=== PATIENT | female | born 1985 | race Caucasian/White ===

== ENCOUNTER 2020-06-06 10:10 | Outpatient (CLI) | payer MEDICARE, MEDICAID, SELFPAY ==
[2020-06-06 10:44] LABS: Basophils Absolute Auto 0.1 K/mm3 (0.0-0.1); Basophils Percent Auto 0.9 % (0.2-1.2); Eosinophils Absolute Auto 0.1 K/mm3 (0-0.3); Eosinophils Percent Auto 2.5 % (0-4.4); Hematocrit 38.5 % (37.0-47.0); Hemoglobin 13.3 g/dL (12.0-15.0); Immature Granulocyte Absolute 0.02 K/mm3 (0.00-0.031); Immature Granulocyte Percent A 0.4 % (0-0.5); Lymphocytes Absolute Auto 2.15 K/mm3 (0.9-3.2); Lymphocytes Percent Auto 37.9 % (18.3-44.2); Mean Corpuscular HGB Conc 34.5 g/dl (32-36); Mean Corpuscular Hemoglobin 31.3 pg (26-34); Mean Corpuscular Volume 90.6 fl (80-100); Mean Platelet Volume 10.1 fl (7.4-10.4); Monocytes Absolute Auto 0.7 K/mm3 (0.1-0.6); Monocytes Percent Auto 11.6 % (2.6-8.5); Neutrophils Absolute Auto 2.7 K/mm3 (1.3-6.7); Neutrophils Percent Auto 46.7 % (45.5-73.1); Platelet Count Result 263 k/mm3 (150-375); Red Blood Count 4.25 M/mm3 (4.2-5.4); Red Cell Distribution Width 11.9 % (11.5-14.5); White Blood Count 5.7 K/mm3 (4.5-10.0)
[2020-06-06 10:47] LABS: Add Urine Microscopic? YES; Appearance Urine Clear (Clear); Bacteria Urine 3+ /hpf; Bilirubin Urine Negative (Negative); Blood Urine Negative (Negative); Color Urine Yellow (Yellow); Glucose Urine UA Negative (Negative); Ketones Urine Negative (Negative); Leukocyte Esterase Ur Negative LEU/UL (NEGATIVE); Mucus Urine Rare /lpf; Nitrate Urine Negative (Negative); Protein Urine 1+ mg/dL (Negative); RBC Urine 0-2 /hpf (0-2); Specific Grav Ur 1.028 (1.001-1.035); Squamous Epithelial Cell Urine Few /hpf (Few); Urobilinogen Urine Negative mg/dL (<2.0); WBC Urine 0-3 /hpf (0-3)
[2020-06-06 11:02] LABS: Potassium 4.2 mmol/L (3.4-5.0)
[2020-06-06 11:06] LABS: Alanine Aminotransferase 19 U/L (4-35); Albumin Level 4.3 g/dL (3.5-5.1); Alkaline Phosphatase 55 U/L (38-126); Anion Gap 5 mmol/L (8-16); Aspartate Amino Transferase 23 U/L (14-36); Bilirubin,Total 0.2 mg/dL (0.2-1.3); Blood Urea Nitrogen 19 mg/dL (7-17); Calcium 9.9 mg/dL (8.4-10.2); Carbon Dioxide 31 mmol/L (22-30); Chloride 105 mmol/L (98-107); Estimated Glomerular Filt Rate > 60; Glucose 80 mg/dL (65-105); Sodium 141 mmol/L (137-145)
[2020-06-06 11:07] LABS: Complement C3 147 mg/dL (88-165); Rheumatoid Factor < 8.6 IU/ML (<12)
[2020-06-06 11:17] LABS: Erythrocyte Sedimentation Rate 27 mm/hr (0-20)
[2020-06-11 09:49] LABS: Anti Cyclic Citrullinated Pept <16 Units (<20)
[2020-06-12 05:20] LABS: CRP, High Sensitivity 1.8 mg/L (***)
[2020-06-12 12:03] LABS: Anti Nuclear Antibody Pattern Nuclear, Speckled
[2020-06-13 13:36] LABS: SM/RNP Antibody 2.4; SS-A 2.3; SS-B <1.0
== END 2020-06-06 10:11 | disposition home or self-care (01) ==
PROVIDERS: PCP Internal Medicine; Visit Provider Internal Medicine
DX: R50.9 Fever, unspecified (principal); E04.9 Nontoxic goiter, unspecified; L93.2 Other local lupus erythematosus; M32.9 Systemic lupus erythematosus, unspecified; M35.00 Sjogren syndrome, unspecified
CPT/HCPCS: 36415; 71046; 80053; 81001; 84443; 85025; 85652; 86038; 86039; 86141; 86160; 86200; 86225; 86235; 86430

== ENCOUNTER 2020-06-06 14:27 | Outpatient (CLI) | payer MEDICARE, MEDICAID, SELFPAY ==
--- NOTE | ~2020-06-06 | XR_ITS ---
EXAMINATION: XR chest 2V DATE: 06/06/2020 14:42 INDICATION: Fever TECHNIQUE: PA and lateral views of the chest were obtained. COMPARISON: Chest radiograph dated 10/21/2018 FINDINGS: The lungs remain clear with no focal airspace opacities, pulmonary edema, pleural effusion or pneumot horax. The cardiomediastinal silhouette is normal. Mild thoracic spondylosis. Amorphous calcification about the greater tuberosities at the bilateral humeral heads consistent with calcific tendinitis. IMPRESSION: 1. No acute cardiopulmonary disease. 2. Bilateral rotator cuff calcific tendinitis. Reviewed, dictated and finalized at location B. 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
== END 2020-06-06 14:28 | disposition home or self-care (01) ==
PROVIDERS: PCP Internal Medicine; Visit Provider Internal Medicine
DX: R50.9 Fever, unspecified (principal); M75.31 Calcific tendinitis of right shoulder; M75.32 Calcific tendinitis of left shoulder
CPT/HCPCS: 71046

== ENCOUNTER 2020-06-10 09:04 | Outpatient (CLI) | payer MEDICARE, MEDICAID, SELFPAY ==
--- NOTE | ~2020-06-10 | US_ITS ---
EXAMINATION: US thyroid DATE: 06/10/2020 10:20 INDICATION: Goiter. TECHNIQUE: Multiple ultrasound images of the thyroid were obtained. COMPARISON: None. FINDINGS: The right thyroid lobe measures 4.6 x 1.5 x 1.6 cm. The left thyroid lobe measures 4.6 x 1.5 x 1.8 c m. There is normal echotexture and echogenicity throughout the thyroid gland. No discrete nodules id entified. Normal vascular flow is present. IMPRESSION: 1. Normal thyroid. Reviewed, dictated and finalized at location A. RT FE[employer]ER GR[employer] IMPRESSION: 1. Normal thyroid.
[2020-06-12 23:45] LABS: NIL 0.02 IU/mL; Quantiferon TB Plus, 1T NEGATIVE (NEGATIVE); TB1-NIL 0.04 IU/mL; TB2-NIL 0.05 IU/mL
== END 2020-06-10 09:05 | disposition home or self-care (01) ==
PROVIDERS: PCP Internal Medicine; Visit Provider Internal Medicine
DX: E04.9 Nontoxic goiter, unspecified (principal); M32.9 Systemic lupus erythematosus, unspecified; M35.00 Sjogren syndrome, unspecified; R50.9 Fever, unspecified
CPT/HCPCS: 36415; 76536; 86480

== ENCOUNTER → 2020-06-13 11:13 | Outpatient (CLI) | payer MEDICARE, MEDICAID, SELFPAY ==
[2020-06-13 22:59] LABS: SARS-CoV-2 RNA PCR Negative
== END ==
PROVIDERS: PCP Internal Medicine; Visit Provider Internal Medicine
DX: R50.9 Fever, unspecified (principal); M32.9 Systemic lupus erythematosus, unspecified; Z20.822 Contact with and (suspected) exposure to COVID-19
CPT/HCPCS: C9803; U0003; U0005

== ENCOUNTER 2020-06-17 21:14 | Emergency (ER) | payer MEDICARE, MEDICAID, SELFPAY ==
[2020-06-17] VITALS (7 sets, daily range): BP systolic 133; BP diastolic 86; PULSE 77–93; RESP 15–22; TEMP 36.4; O2SAT 96–100
--- NOTE | ~2020-06-17 | XR_ITS ---
EXAMINATION: XR chest 1V portable DATE: 06/17/2020 21:59 INDICATION: 3 weeks of fever TECHNIQUE: frontal view of the chest was obtained. COMPARISON: Chest radiograph dated 06/06/2020 FINDINGS: The lungs remain clear with no focal airspace opacities, pulmonary edema, pleural effusion or pneumot horax. The cardiomediastinal silhouette is normal. Globular calcifications along the greater tuberosi ty at the left shoulder consistent with rotator cuff calcific tendinitis. IMPRESSION: 1. No acute cardiopulmonary disease. Reviewed, dictated and finalized at location A. 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
--- NOTE | 2020-06-17 21:49 | ED.FEVER ---
HPI - Fever General Chief Complaint: Fever Stated Complaint: bad Lupus flare up Time Seen by Provider: 06/17/20 21:32 Source: patient Mode of arrival: ambulatory Limitations: no limitations History of Present Illness HPI Narrative: Patient is a 35-year-old female complaining of fever on and off for the past 3 weeks. Patient states that she has seen her business intelligence architect and her primary care physician for it. Patient states that prior to arrival she checked her temperature and it was 104.7 and that is why she came to the emergency room. Patient denies taking Tylenol Motrin prior to arrival, temperature upon arrival was normal at 36.4, afebrile. Patient denies any headache, neck stiffness, chest pain, shortness of breath, cough, abdominal pain, nausea, vomiting, diarrhea or urinary symptoms. Related Data Home Medications Medication Instructions Recorded Confirmed bupropion HCl 200 mg tablet,12 hr 200 mg PO BID 05/15/19 06/06/20 sustained-release fluoxetine 20 mg capsule 40 mg PO DAILY cap 06/06/20 06/06/20 lorazepam 0.5 mg tablet 0.5 mg PO DAILY PRN 06/13/20 Allergies Allergy/AdvReac Type Severity Reaction Status Date / Time No Known Allergies Allergy Verified 06/17/20 21:28 Review of Systems Review of Systems: All systems reviewed & are unremarkable except as noted in HPI and below Constitutional: Constitutional: Denies body ache(s), Denies chills, Denies excessive sweating, Denies fatigue, Denies headache(s), Denies lethargy, Denies malaise, Denies weakness and Denies weight loss Eyes: Eyes: Denies blurry vision, Denies change in vision and Denies loss of vision ENT: Denies dizziness, Denies ear discharge, Denies headache(s), Denies lip swelling, Denies epistaxis, Denies nasal congestion, Denies neck pain, Denies throat swelling and Denies tongue swelling Cardiovascular: Cardiovascular: Denies chest pain, Denies chest pain at rest, Denies chest pain with activity, Denies diaphoresis, Denies rapid heart rate, Denies edema, Denies irregular heart rhythm, Denies lightheadedness, Denies palpitations, Denies dyspnea and Denies dyspnea on exertion Respiratory: Respiratory: Denies chest congestion, Denies cough, Denies hemoptysis, Denies dyspnea and Denies dyspnea on exertion Gastrointestinal: Gastrointestinal: Denies abdominal pain, Denies melena, Denies hematochezia, Denies diarrhea, Denies nausea, Denies vomiting and Denies hematemesis Musculoskeletal: Musculoskeletal: Denies abnormal gait, Denies deformity, Denies joint swelling, Denies limited range of motion, Denies neck pain and Denies numbness Neurologic: Denies Abnormal speech present, Denies abnormal gait, Denies confusion, Denies dizziness, Denies headache(s), Denies focal weakness, Denies loss of vision, Denies numbness, Denies Other visual disturbances, Denies Sensory deficit (Neuro) and Denies weakness Psychiatric: Psychiatric: Denies confusion, Denies depression, Denies auditory hallucinations, Denies homicidal ideation and Denies suicidal ideation Endocrine: Endocrine: Denies cold intolerance, Denies excessive sweating, Denies fatigue, Denies heat intolerance and Denies palpitations Hematologic/Lymphatic: Hematologic/Lymphatic: Denies easy bleeding and Denies easy bruising Allergic/Immunologic: Allergic/Immunologic: Denies lip swelling, Denies throat swelling and Denies tongue swelling PMFSH Past Medical History Medical History Anxiety Arthritis Close exposure to COVID-19 virus Fever of unknown origin Head ache Hypertension Irritable bowel syndrome Seasonal allergies Surgical History Surgical History H/O section Family History Family History Grandparent Carcinoma of colon, Onset Age: 55 Sibling Asthma Depression Mother Lung cancer Bone cancer Brain cancer Depres
[2020-06-17] MEDS: SODIUM CHLORIDE 0.9% IV 1,000 ML 999 ML IV CONT (22:02)
[2020-06-17 22:39] LABS: Basophils Percent Auto 0.5 % (0.2-1.2); Eosinophils Absolute Auto 0.1 K/mm3 (0-0.3); Hemoglobin 13.4 g/dL (12.0-15.0); Immature Granulocyte Absolute 0.02 K/mm3 (0.00-0.031); Immature Granulocyte Percent A 0.3 % (0-0.5); Lymphocytes Absolute Auto 2.46 K/mm3 (0.9-3.2); Lymphocytes Percent Auto 38.7 % (18.3-44.2); Mean Corpuscular HGB Conc 34.4 g/dl (32-36); Mean Corpuscular Hemoglobin 30.4 pg (26-34); Mean Corpuscular Volume 88.4 fl (80-100); Mean Platelet Volume 10.7 fl (7.4-10.4); Monocytes Absolute Auto 0.7 K/mm3 (0.1-0.6); Monocytes Percent Auto 10.4 % (2.6-8.5); Neutrophils Absolute Auto 3.1 K/mm3 (1.3-6.7); Neutrophils Percent Auto 48.1 % (45.5-73.1); Platelet Count Result 256 k/mm3 (150-375); Red Blood Count 4.41 M/mm3 (4.2-5.4); Red Cell Distribution Width 11.3 % (11.5-14.5); White Blood Count 6.4 K/mm3 (4.5-10.0)
[2020-06-17 22:50] LABS: Lactic Acid Reflex 0.7 mmol/L (0.7-2.1)
[2020-06-17 22:51] LABS: Alanine Aminotransferase 17 U/L (4-35); Albumin Level 4.4 g/dL (3.5-5.1); Alkaline Phosphatase 46 U/L (38-126); Anion Gap 7 mmol/L (8-16); Aspartate Amino Transferase 23 U/L (14-36); Bilirubin,Total 0.3 mg/dL (0.2-1.3); Blood Urea Nitrogen 17 mg/dL (7-17); Calcium 9.3 mg/dL (8.4-10.2); Carbon Dioxide 27 mmol/L (22-30); Chloride 104 mmol/L (98-107); Estimated CRCL calculation 84 ml/min; Estimated Glomerular Filt Rate > 60; Glucose 90 mg/dL (65-105); Potassium 4.4 mmol/L (3.4-5.0); Sodium 138 mmol/L (137-145)
[2020-06-17 23:42] LABS: Add Urine Microscopic? NO; Appearance Urine Clear (Clear); Bilirubin Urine Negative (Negative); Blood Urine Negative (Negative); Color Urine Yellow (Yellow); Glucose Urine UA Negative (Negative); Ketones Urine Negative (Negative); Leukocyte Esterase Ur Negative LEU/UL (Negative); Nitrate Urine Negative (Negative); Protein Urine Negative (Negative); Specific Grav Ur 1.015 (1.001-1.035); Urobilinogen Urine Negative mg/dL (<2.0)
[2020-06-18 00:09] VITALS: BP 112/70; PULSE 80; RESP 14; O2SAT 100
== END 2020-06-18 00:10 | disposition home or self-care (01) ==
PROVIDERS: Emergency Provider Emergency Medicine; PCP Internal Medicine
DX: R50.9 Fever, unspecified (principal); M19.90 Unspecified osteoarthritis, unspecified site; F41.9 Anxiety disorder, unspecified; I10 Essential (primary) hypertension; K58.9 Irritable bowel syndrome, unspecified; Z87.891 Personal history of nicotine dependence
CPT/HCPCS: 36415; 71045; 80053; 81003; 83605; 85025; 87040; 96360; 99283; J7030

== ENCOUNTER 2020-07-08 15:33 | Outpatient (CLI) | payer MEDICARE, MEDICAID, SELFPAY ==
[2020-07-08 16:16] LABS: Hematocrit 38.4 % (37.0-47.0); Hemoglobin 13.1 g/dL (12.0-15.0); Mean Corpuscular HGB Conc 34.1 g/dl (32-36); Mean Corpuscular Hemoglobin 30.8 pg (26-34); Mean Corpuscular Volume 90.4 fl (80-100); Mean Platelet Volume 10.5 fl (7.4-10.4); Platelet Count Result 250 k/mm3 (150-375); Red Blood Count 4.25 M/mm3 (4.2-5.4); Red Cell Distribution Width 11.5 % (11.5-14.5); White Blood Count 5.5 K/mm3 (4.5-10.0)
[2020-07-08 16:20] LABS: Add Urine Microscopic? YES; Appearance Urine Clear (Clear); Bacteria Urine Trace /hpf; Bilirubin Urine Negative (Negative); Blood Urine Negative (Negative); Color Urine Yellow (Yellow); Glucose Urine UA Negative (Negative); Ketones Urine Negative (Negative); Leukocyte Esterase Ur Negative LEU/UL (Negative); Mucus Urine Heavy /lpf; Nitrate Urine Negative (Negative); Protein Urine 2+ mg/dL (Negative); RBC Urine 0-2 /hpf (0-2); Specific Grav Ur 1.019 (1.001-1.035); Squamous Epithelial Cell Urine Moderate /hpf (Few); Urobilinogen Urine Negative mg/dL (<2.0); WBC Urine 0-3 /hpf
[2020-07-08 16:32] LABS: Alanine Aminotransferase 19 U/L (4-35); Albumin Level 4.4 g/dL (3.5-5.1); Alkaline Phosphatase 50 U/L (38-126); Anion Gap 6 mmol/L (8-16); Aspartate Amino Transferase 22 U/L (14-36); Bilirubin,Total 0.3 mg/dL (0.2-1.3); Blood Urea Nitrogen 13 mg/dL (7-17); CRP < 0.5 mg/dL (<1.0); Calcium 9.7 mg/dL (8.4-10.2); Carbon Dioxide 28 mmol/L (22-30); Chloride 104 mmol/L (98-107); Estimated Glomerular Filt Rate > 60; Glucose 110 mg/dL (65-105); Sodium 138 mmol/L (137-145)
[2020-07-08 16:47] LABS: Erythrocyte Sedimentation Rate 23 mm/hr (0-20)
[2020-07-08 17:53] LABS: Hepatitis C Virus Antibody Negative (Negative)
== END 2020-07-08 15:34 | disposition home or self-care (01) ==
LOC: ANHLAB 15:41
PROVIDERS: PCP Internal Medicine; Visit Provider Internal Medicine
DX: M32.9 Systemic lupus erythematosus, unspecified (principal); R50.9 Fever, unspecified; M19.90 Unspecified osteoarthritis, unspecified site
CPT/HCPCS: 36415; 80053; 81001; 85027; 85652; 86140; 86803

== ENCOUNTER 2020-09-16 12:00 | Outpatient (CLI) | payer MEDICARE, MEDICAID, SELFPAY ==
[2020-09-16 13:10] LABS: Hemoglobin A1C 5.1 % (<5.7)
[2020-09-16 13:16] LABS: Cholesterol 187 mg/dL (0-200); HDL Direct 57 mg/dL; Triglycerides 112 mg/dL (<150)
[2020-09-16 13:26] LABS: LDL Cholesterol Direct 108 mg/dL
== END 2020-09-16 12:01 | disposition home or self-care (01) ==
PROVIDERS: PCP Internal Medicine; Visit Provider Internal Medicine
DX: E78.2 Mixed hyperlipidemia (principal); R73.01 Impaired fasting glucose
CPT/HCPCS: 36415; 80061; 83036

== ENCOUNTER 2020-09-18 11:00 | Outpatient (CLI) | payer MEDICARE, MEDICAID, SELFPAY ==
[2020-09-18 12:10] LABS: Total Protein Urine Random 11 mg/dL
[2020-09-18 14:32] LABS: Total Protein Urine 24 Hr 165 mg/24hr (28-141); Total Volume 24 Hour Urine 1500 ml
== END 2020-09-18 11:01 | disposition home or self-care (01) ==
LOC: ANHLAB 11:03
PROVIDERS: PCP Internal Medicine; Visit Provider Internal Medicine
DX: R80.9 Proteinuria, unspecified (principal)
CPT/HCPCS: 81050; 84156

== ENCOUNTER 2020-10-29 13:50 | Outpatient (CLI) | payer MEDICARE, MEDICAID, SELFPAY ==
[2020-10-29 14:38] LABS: Basophils Percent Auto 0.6 % (0.2-1.2); Eosinophils Absolute Auto 0.2 K/mm3 (0-0.3); Eosinophils Percent Auto 3.1 % (0-4.4); Hematocrit 39.2 % (37.0-47.0); Hemoglobin 13.2 g/dL (12.0-15.0); Immature Granulocyte Absolute 0.03 K/mm3 (0.00-0.031); Immature Granulocyte Percent A 0.4 % (0-0.5); Lymphocytes Absolute Auto 2.58 K/mm3 (0.9-3.2); Lymphocytes Percent Auto 35.9 % (18.3-44.2); Mean Corpuscular HGB Conc 33.7 g/dl (32-36); Mean Corpuscular Hemoglobin 30.5 pg (26-34); Mean Corpuscular Volume 90.5 fl (80-100); Monocytes Absolute Auto 0.6 K/mm3 (0.1-0.6); Monocytes Percent Auto 8.8 % (2.6-8.5); Neutrophils Absolute Auto 3.7 K/mm3 (1.3-6.7); Neutrophils Percent Auto 51.2 % (45.5-73.1); Platelet Count Result 313 k/mm3 (150-375); Red Blood Count 4.33 M/mm3 (4.2-5.4); Red Cell Distribution Width 11.6 % (11.5-14.5); White Blood Count 7.2 K/mm3 (4.5-10.0)
[2020-10-29 14:46] LABS: Add Urine Microscopic? YES; Appearance Urine Clear (Clear); Bacteria Urine Trace /hpf; Bilirubin Urine Negative (Negative); Blood Urine 1+ (Negative); Color Urine Yellow (Yellow); Glucose Urine UA Negative (Negative); Ketones Urine Negative (Negative); Leukocyte Esterase Ur Negative LEU/UL (Negative); Mucus Urine Rare /lpf; Nitrate Urine Negative (Negative); Protein Urine 1+ mg/dL (Negative); RBC Urine 0-2 /hpf (0-2); Specific Grav Ur 1.015 (1.001-1.035); Squamous Epithelial Cell Urine Occasional /hpf (Few); Urobilinogen Urine Negative mg/dL (<2.0); WBC Urine 0-3 /hpf
[2020-10-29 14:49] LABS: Creatinine Urine 135.9 mg/dL; Total Protein Urine Random 12 mg/dL; Ur Ttl Prot Creatinine Ratio 0.09 mg/mg (0-0.20)
[2020-10-29 14:50] LABS: Alanine Aminotransferase 17 U/L (4-35); Albumin Level 4.5 g/dL (3.5-5.1); Alkaline Phosphatase 51 U/L (38-126); Anion Gap 7 mmol/L (8-16); Aspartate Amino Transferase 25 U/L (14-36); Bilirubin,Total 0.1 mg/dL (0.2-1.3); Blood Urea Nitrogen 10 mg/dL (7-17); CRP 0.6 mg/dL (<1.0); Calcium 9.8 mg/dL (8.4-10.2); Carbon Dioxide 27 mmol/L (22-30); Chloride 105 mmol/L (98-107); Estimated Glomerular Filt Rate > 60; Glucose 77 mg/dL (65-105); Potassium 4.5 mmol/L (3.4-5.0); Sodium 139 mmol/L (137-145)
[2020-10-29 15:25] LABS: Erythrocyte Sedimentation Rate 32 mm/hr (0-20)
[2020-10-29 15:48] LABS: Atypical Lymphocytes Present; Platelet Estimate Adequate (Adequate)
== END 2020-10-29 13:51 | disposition home or self-care (01) ==
LOC: ANHLAB 14:00
PROVIDERS: PCP Internal Medicine; Visit Provider Internal Medicine
DX: M32.9 Systemic lupus erythematosus, unspecified (principal); M19.90 Unspecified osteoarthritis, unspecified site
CPT/HCPCS: 36415; 80053; 81001; 82570; 84156; 85025; 85652; 86140

== ENCOUNTER 2020-12-11 17:02 | Emergency (ER) | payer MEDICARE, MEDICAID, SELFPAY ==
[2020-12-11 17:11] VITALS: BP 126/80; PULSE 68; RESP 18; TEMP 36.6; O2SAT 98
--- NOTE | 2020-12-11 18:10 | ED.SKABFB ---
HPI - Skin/Abscess/Foreign Bdy General Chief complaint: Skin/Abscess/Foreign Body Stated complaint: Bee bite to Finger on left Hand Source: patient and RN notes reviewed Limitations: no limitations History of Present Illness HPI narrative: The patient, on several meds for SLE, presents with insect bite. Patient states prior to arrival she sustained a witnessed wasp sting on her left ring finger. She complains of mild discomfort and edema from a small puncta; symptoms are mild, worse with motion better at rest or elevation and ice . Related Data Home Medications Medication Instructions Recorded Confirmed fluoxetine 20 mg capsule 20 mg PO DAILY cap 06/06/20 12/11/20 lorazepam 0.5 mg tablet 0.5 mg PO DAILY PRN 06/13/20 12/11/20 metoprolol tartrate 25 mg PO DAILY 12/11/20 12/11/20 Allergies Allergy/AdvReac Type Severity Reaction Status Date / Time No Known Allergies Allergy Verified 12/11/20 17:22 Review of Systems Review of Systems: General/Constitutional: No weight loss,fever Eyes: N0: Redness,discharge Ears/Nose/Throat: No: Epistaxis,ear discharge Respiratory: Denies: Hemoptysis Gastrointestinal: No Vomiting, Bleeding-rectal Skin: No Lumps, eruption Neurologic: No Focal Weakness,Sz Hematologic: Denies: Petechiae/Purpura Psychiatric: No: Suicida ideationl All Other Systems: Reviewed and Negative [facility] Past Medical History Medical History (Updated 12/11/20 @ 18:13 by Alberto Garcia MD) Abnormality of heart beat Anxiety Anxiety about health Arthritis Bilateral shoulder pain Calcific tendinitis of both shoulder regions Calcific tendonitis Close exposure to COVID-19 virus 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 DJD of right shoulder Enlarged thyroid gland Essential hypertension Ex-smoker General symptom Head ache Hearing loss Heart palpitations Hypertension Hypochondriasis Hypothyroid IFG (impaired fasting glucose) Irritable bowel syndrome Irritable bowel syndrome with constipation Leukoplakia Lung nodule < 6cm on CT (02/2020) Lupus Narcolepsy Narcolepsy and cataplexy Nausea and vomiting Obesity (BMI 30.0-34.9) Proteinuria Seasonal allergies Sjogren's disease Vaccine counseling Vitamin D toxicity Weight gain Surgical History Surgical History H/O section History of colposcopy Family History Family History Grandparent Carcinoma of colon, Onset Age: 55 Sibling Asthma Depression Mother Lung cancer Bone cancer Brain cancer Depression Cerebrovascular accident Thyroid disorder Father Heart disease Social History Social History Smoking packs per day: 0.5 Smoking cigarettes per day: 10.0 Years smoked: 22 Smoking pack-years: 11.00 Smoking end date: 05/09/17 Alcohol intake: never Comments At time of signature, agree with nursing past medical, surgical, social and family history. There is no relevant family history pertinent to the presenting complaint Exam Narrative: General Appearance: Overweight/ well nourished, No distress EYE: PERRLA, EOMI, Conjunctiva clear Ears: External ear normal, Auditory canal normal Nose: Normal nose, Nares clear Mouth/Throat: Normal appearing, Normal lips Neck: Supple Respiratory: Airway patent, No respiratory distress MS-finger: Normal strength (mostly intact, limited flexion/extension by pain), Tenderness ( laterally, with mild decreased ROM), Scant welling (laterally), Other (no anterior drawer, no collateral laxity, Skin: Warm, Dry, Normal color Neurological: A&O x3, Speech clear, CN II-XII intact Psychiatric: Normal mood, Normal affect Course Vital Signs Vital signs: Vital Signs Temperature 97.8 F 12/11/20 17:11 Pulse Rate 68 12/11/20 17:11 Respiratory Rate 18 12/11/20 17:11 Blood Pressure 126/80 12/11/20 17:11 Pulse O
== END 2020-12-11 18:20 | disposition home or self-care (01) ==
PROVIDERS: Emergency Provider Emergency Medicine; PCP Internal Medicine
DX: T63.461A Toxic effect of venom of wasps, accidental (unintentional), initial encounter (principal); F17.200 Nicotine dependence, unspecified, uncomplicated; F41.9 Anxiety disorder, unspecified; M19.90 Unspecified osteoarthritis, unspecified site; M19.012 Primary osteoarthritis, left shoulder; M19.011 Primary osteoarthritis, right shoulder; I10 Essential (primary) hypertension; E03.9 Hypothyroidism, unspecified; E66.9 Obesity, unspecified; Z68.33 Body mass index [BMI] 33.0-33.9, adult; G47.411 Narcolepsy with cataplexy; M35.00 Sjogren syndrome, unspecified
CPT/HCPCS: 99213; G0463

== ENCOUNTER 2021-02-11 15:38 | Outpatient (CLI) | payer MEDICARE, MEDICAID, SELFPAY ==
[2021-02-11 16:08] LABS: Basophils Absolute Auto 0.1 K/mm3 (0.0-0.1); Basophils Percent Auto 0.7 % (0.2-1.2); Eosinophils Absolute Auto 0.2 K/mm3 (0-0.3); Eosinophils Percent Auto 1.9 % (0-4.4); Immature Granulocyte Absolute 0.05 K/mm3 (0.00-0.031); Immature Granulocyte Percent A 0.6 % (0-0.5); Lymphocytes Percent Auto 27.3 % (18.3-44.2); Mean Corpuscular HGB Conc 34.1 g/dl (32-36); Mean Corpuscular Volume 90.9 fl (80-100); Mean Platelet Volume 10.1 fl (7.4-10.4); Monocytes Absolute Auto 0.6 K/mm3 (0.1-0.6); Monocytes Percent Auto 7.6 % (2.6-8.5); Neutrophils Percent Auto 61.9 % (45.5-73.1); Platelet Count Result 297 k/mm3 (150-375); Red Blood Count 4.51 M/mm3 (4.2-5.4); White Blood Count 8.1 K/mm3 (4.5-10.0)
[2021-02-11 16:48] LABS: Add Urine Microscopic? YES; Appearance Urine Clear (Clear); Bacteria Urine Trace /hpf; Bilirubin Urine Negative (Negative); Blood Urine Negative (Negative); Color Urine Amber (Yellow); Glucose Urine UA Negative (Negative); Ketones Urine Negative (Negative); Leukocyte Esterase Ur Negative LEU/UL (Negative); Mucus Urine Heavy /lpf; Nitrate Urine Negative (Negative); Protein Urine 2+ mg/dL (Negative); RBC Urine 21-50 /hpf (0-2); Specific Grav Ur 1.026 (1.001-1.035); Squamous Epithelial Cell Urine Moderate /hpf (Few); Urobilinogen Urine Negative mg/dL (<2.0)
[2021-02-11 16:49] LABS: Erythrocyte Sedimentation Rate 58 mm/hr (0-20)
[2021-02-11 17:36] LABS: Alanine Aminotransferase 22 U/L (4-35); Albumin Level 4.8 g/dL (3.5-5.1); Alkaline Phosphatase 52 U/L (38-126); Anion Gap 9 mmol/L (8-16); Aspartate Amino Transferase 25 U/L (14-36); Bilirubin,Total 0.3 mg/dL (0.2-1.3); Blood Urea Nitrogen 12 mg/dL (7-17); CRP < 0.5 mg/dL (<1.0); Calcium 9.7 mg/dL (8.4-10.2); Carbon Dioxide 28 mmol/L (22-30); Chloride 102 mmol/L (98-107); Estimated Glomerular Filt Rate > 60; Glucose 132 mg/dL (65-110); Sodium 139 mmol/L (137-145)
[2021-02-14 06:20] LABS: Thyroid Peroxidase Antibodies <1 IU/mL (<9)
== END 2021-02-11 15:39 | disposition home or self-care (01) ==
PROVIDERS: PCP Internal Medicine; Visit Provider Internal Medicine
DX: M32.9 Systemic lupus erythematosus, unspecified (principal); M19.90 Unspecified osteoarthritis, unspecified site; E03.9 Hypothyroidism, unspecified
CPT/HCPCS: 36415; 80053; 81001; 85025; 85652; 86140; 86376; 87086

== ENCOUNTER 2021-02-18 09:26 | Outpatient (CLI) | payer MEDICARE, MEDICAID, SELFPAY ==
--- NOTE | ~2021-02-18 | CT_ITS ---
EXAMINATION:CT diagnostic chest w con DATE: 02/18/2021 10:40 INDICATION: Solitary pulmonary nodule. TECHNIQUE: Computed tomography (CT) of the chest was performed with 75 mL Omnipaque 350 intravenous c ontrast. Automated exposure control and iterative reconstruction technique were employed. The dose-le ngth product (DLP) was 233.81 mGy-cm. COMPARISON: None. FINDINGS: There is mild dependent atelectasis on the right. No pleural effusion. The heart size is no rmal. No pericardial effusion. There is mild thoracic spondylosis. IMPRESSION: 1. No abnormal pulmonary nodule. Reviewed, dictated and finalized at location A.
== END 2021-02-18 09:27 | disposition home or self-care (01) ==
LOC: ANHIMG 09:27
PROVIDERS: PCP Internal Medicine; Visit Provider Internal Medicine Pulmonary Disease
DX: M25.462 Effusion, left knee (principal)
CPT/HCPCS: 71260; Q9967

== ENCOUNTER 2021-07-04 07:48 | Outpatient (CLI) | payer MEDICARE, MEDICAID, SELFPAY ==
--- NOTE | ~2021-07-04 | MR_ITS ---
EXAMINATION: MR shoulder LT wo con DATE: 07/04/2021 08:34 INDICATION: Left shoulder pain. TECHNIQUE: Magnetic resonance imaging (MRI) of the left shoulder was performed without intravenous co ntrast. Sequences included axial PD-weighted FS FSE, coronal oblique PD-weighted FS FSE and T2-weight ed FS FSE, and sagittal oblique T2-weighted FS FSE and T1-weighted FSE. COMPARISON: Left shoulder radiographs 11/17/2020 FINDINGS: Coracoacromial arch: The acromion undersurface is curved in morphology (type II). There is mild subacromial/subdeltoid bur sitis. There is mild acromioclavicular joint osteoarthritis. Rotator cuff: There is mild supraspinatus and infraspinatus tendinopathy. There are calcifications involving the jeter praspinatus and infraspinatus tendons. Teres minor tendon is normal. Subscapularis tendon is normal. There is no asymmetric fatty atrophy of the rotator cuff muscle bellies. Biceps tendon and glenoid labrum: Biceps tendon is in bicipital groove. Intra-articular biceps tendon is normal. The glenoid labrum is normal. Fluid: There is a small glenohumeral joint effusion. Bones/cartilage: Glenoid cartilage is normal. Humeral head cartilage is normal. IMPRESSION: 1. Mild rotator cuff tendinopathy. Calcific tendinitis of supraspinatus and infraspinatus tendons. 2. Mild acromioclavicular joint osteoarthritis. 3. Small glenohumeral joint effusion. 4. Mild subacromial/subdeltoid bursitis. Reviewed, dictated and finalized at location A. 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 Mild rotator cuff tendinopathy. Calcific tendinitis of supraspinatus and inf raspinatus tendons. 2. Mild acromioclavicular joint osteoarthritis. 3. Small glenohumeral joint effusion. 4. Mild subacromial/subdeltoid bursitis.
== END 2021-07-04 07:49 | disposition home or self-care (01) ==
LOC: ANHIMG 07:50
PROVIDERS: PCP Internal Medicine; Visit Provider Nurse Practitioner Family
DX: M19.012 Primary osteoarthritis, left shoulder (principal); M25.412 Effusion, left shoulder; M75.52 Bursitis of left shoulder
CPT/HCPCS: 73221

== ENCOUNTER 2022-08-04 10:03 | Emergency (ER) | payer MEDICARE, MEDICAID, SELFPAY ==
[2022-08-04 10:11] VITALS: BP 118/75; PULSE 71; RESP 18; TEMP 36.3; O2SAT 99
--- NOTE | 2022-08-04 10:40 | ED.EAR ---
HPI - Ear Problem General Chief complaint: Ear Stated complaint: Ear Pain Time Seen by Provider: 08/04/22 10:41 Source: patient, RN notes reviewed and old records reviewed Mode of arrival: ambulatory Limitations: no limitations History of Present Illness HPI Narrative: 37-year-old female who presents to [facility] with complaints of bilateral ear pain with left ear pain for 3 weeks, right ear pain since yesterday. Patient reports that she has had sore throat for about a week has history of tonsil stones but has noted a pimply lesion on area next to right tonsil, no lymphadenopathy.Patient has taken Ibuprofen and Tylenol and ear pain drops MD Complaint: ear pain and other (sore throat) Location: bilateral Duration: constant Discharge from ear: Reports no Treatment prior to arrival: oral analgesic and other (pain ear drops) Related Data Home Medications Medication Instructions Recorded Confirmed fluoxetine 40 mg capsule 40 mg PO DAILY 09/22/21 08/04/22 metoprolol tartrate 25 mg tablet 25 mg PO BID 09/22/21 08/04/22 lorazepam 0.5 mg tablet 0.5 mg PO DAILY PRN Anxiety 08/04/22 08/04/22 Allergies Allergy/AdvReac Type Severity Reaction Status Date / Time No Known Allergies Allergy Verified 08/04/22 10:29 Review of Systems Review of Systems: CONSTITUTIONAL: Denies known fever,has felt feverish, chills, or sweats. EYES: Denies visual changes, redness, or discharge. ENT: Denies rhinorrhea, congestion,positive sore throat,bilateral ear pressure otalgia. CARDIOVASCULAR: Denies chest pain, palpitations, or edema. RESPIRATORY: Denies cough or dyspnea. GASTROINTESTINAL: Denies abdominal pain, nausea, vomiting, or diarrhea. GENITOURINARY: Denies dysuria or hematuria. SKIN: Denies rash or itching. MUSCULOSKELETAL: Denies back pain, joint pain, or myalgia. NEUROLOGIC: Denies headache, numbness, or weakness. PSYCHIATRIC: positive for history of anxiety or depression. 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 DJD of right shoulder Enlarged thyroid gland Essential hypertension Ex-smoker General symptom Head ache Hearing loss Heart palpitations Hypertension Hypochondriasis Hypothyroid IFG (impaired fasting glucose) Irritable bowel syndrome Irritable bowel syndrome with constipation Left shoulder pain Leukoplakia Lung nodule < 6cm on CT (02/2020) Lupus Narcolepsy Narcolepsy and cataplexy Nausea and vomiting Obesity (BMI 30.0-34.9) Proteinuria Seasonal allergies Sjogren's disease Vaccine counseling Vitamin D toxicity Weight gain Surgical History Surgical History H/O section History of colposcopy Family History Family History Grandparent Carcinoma of colon, Onset Age: 55 Sibling Asthma Depression Mother Lung cancer Bone cancer Brain cancer Depression Cerebrovascular accident Thyroid disorder Father Heart disease Social History Social History Smoking packs per day: 0.5 Smoking cigarettes per day: 10.0 Years smoked: 22 Smoking pack-years: 11.00 Smoking status: Former smoker Tobacco type: cigarettes Second hand tobacco smoke exposure: No Smoking end date: 05/09/17 Alcohol intake: former Substance use: never Substance use type: does not use Lack of Transportation: No Lack of Food: Never True Current Housing: I Have Housing Concerned About Future Housing: No Difficulty Paying Gas/Electric Bills: No Difficulty Paying for Meds: N
== END 2022-08-04 11:10 | disposition home or self-care (01) ==
PROVIDERS: Emergency Provider Registered Nurse
DX: J06.9 Acute upper respiratory infection, unspecified (principal); J02.9 Acute pharyngitis, unspecified; Z87.891 Personal history of nicotine dependence; F41.9 Anxiety disorder, unspecified; I10 Essential (primary) hypertension; E03.9 Hypothyroidism, unspecified; R73.01 Impaired fasting glucose; L93.0 Discoid lupus erythematosus; M19.012 Primary osteoarthritis, left shoulder; M19.011 Primary osteoarthritis, right shoulder
CPT/HCPCS: 87081; 87880; 99213; G0463

== ENCOUNTER 2023-02-08 10:21 | Outpatient (CLI) | payer MEDICARE, MEDICAID, SELFPAY ==
[2023-02-08 11:22] LABS: Basophils Percent Auto 0.6 % (0.2-1.2); Eosinophils Absolute Auto 0.4 K/mm3 (0-0.3); Eosinophils Percent Auto 5.7 % (0-4.4); Hematocrit 39.4 % (37.0-47.0); Hemoglobin 13.1 g/dL (12.0-15.0); Immature Granulocyte Absolute 0.04 K/mm3 (0.00-0.031); Immature Granulocyte Percent A 0.6 % (0-0.5); Lymphocytes Absolute Auto 2.44 K/mm3 (0.9-3.2); Lymphocytes Percent Auto 33.7 % (18.3-44.2); Mean Corpuscular HGB Conc 33.2 g/dl (32-36); Mean Corpuscular Hemoglobin 30.3 pg (26-34); Mean Corpuscular Volume 91.2 fl (80-100); Mean Platelet Volume 10.1 fl (7.4-10.4); Monocytes Absolute Auto 0.6 K/mm3 (0.1-0.6); Monocytes Percent Auto 8.6 % (2.6-8.5); Neutrophils Absolute Auto 3.7 K/mm3 (1.3-6.7); Neutrophils Percent Auto 50.8 % (45.5-73.1); Platelet Count Result 320 k/mm3 (150-375); Red Blood Count 4.32 M/mm3 (4.2-5.4); Red Cell Distribution Width 11.9 % (11.5-14.5); White Blood Count 7.2 K/mm3 (4.5-10.0)
[2023-02-08 11:29] LABS: Alanine Aminotransferase 32 U/L (6-35); Albumin Level 4.4 g/dL (3.5-5.1); Alkaline Phosphatase 66 U/L (38-126); Anion Gap 7 mmol/L (8-16); Aspartate Amino Transferase 34 U/L (14-36); Bilirubin,Total 0.3 mg/dL (0.2-1.3); Blood Urea Nitrogen 11 mg/dL (7-17); Calcium 9.1 mg/dL (8.4-10.2); Carbon Dioxide 28 mmol/L (22-30); Chloride 103 mmol/L (98-107); Cholesterol 213 mg/dL (0-200); Estimated Glomerular Filt Rate > 60; Glucose 85 mg/dL (65-110); HDL Direct 43 mg/dL; Potassium 4.1 mmol/L (3.4-5.0); Sodium 138 mmol/L (137-145); Triglycerides 194 mg/dL (<150)
[2023-02-08 11:40] LABS: LDL Cholesterol Direct 133 mg/dL
[2023-02-08 12:11] LABS: Hemoglobin A1C 5.2 % (<5.7)
[2023-02-08 12:26] LABS: Vitamin D 25 Hydroxy 34.1 ng/mL
[2023-02-08 12:36] LABS: Folic Acid 16.9 ng/mL (2.76->20)
[2023-02-10 09:24] LABS: Amphetamines NEGATIVE ng/mL (<500); Barbiturates NEGATIVE ng/mL (<300); Benzodiazepines POSITIVE ng/mL (<100); Cocaine Metabolite NEGATIVE ng/mL (<150); Marijuana Metabolite NEGATIVE ng/mL (<20); Methadone Metabolite NEGATIVE ng/mL (<100); Opiates NEGATIVE ng/mL (<100); Oxidant NEGATIVE mcg/mL (<200); pH 5.3 (4.5-9.0)
== END 2023-02-08 10:22 | disposition home or self-care (01) ==
PROVIDERS: PCP Nurse Practitioner Family; Visit Provider Nurse Practitioner Family
DX: R73.01 Impaired fasting glucose (principal); Z68.36 Body mass index [BMI] 36.0-36.9, adult; I10 Essential (primary) hypertension; M32.9 Systemic lupus erythematosus, unspecified; Z13.0 Encounter for screening for diseases of the blood and blood-forming organs and certain disorders involving the immune mechanism; Z13.21 Encounter for screening for nutritional disorder; R53.83 Other fatigue; Z13.29 Encounter for screening for other suspected endocrine disorder
CPT/HCPCS: 36415; 80053; 80061; 80307; 82306; 82607; 82746; 83036; 84443; 85025

== ENCOUNTER 2023-09-23 18:18 | Emergency (ER) | payer MEDICARE, MEDICAID, SELFPAY ==
--- NOTE | 2023-09-23 18:20 | ED.URI ---
HPI - URI/Sore Throat General Chief Complaint: Upper Respiratory Infection Stated Complaint: Ear Pain/Sore Throat/Cough/Fever Time Seen by Provider: 09/23/23 18:40 Source: patient, RN notes reviewed and old records reviewed Mode of arrival: ambulatory Limitations: no limitations History of Present Illness HPI Narrative: 38-year-old female presents to the [facility] with complaints of ear pain, sore throat, cough and low-grade fevers. Patient states that symptoms have been intermittent for the last 2-3 weeks however 4 days ago symptoms became much worse. States that she does take Coricidin for her symptoms but is not helping. Related Data Home Medications Medication Instructions Recorded Confirmed metoprolol tartrate 25 mg tablet 25 mg PO BID 09/22/21 09/23/23 lorazepam 0.5 mg tablet 0.5 mg PO DAILY PRN Anxiety 08/04/22 09/23/23 fluoxetine 20 mg capsule 20 mg PO DAILY 08/19/23 09/23/23 Allergies Allergy/AdvReac Type Severity Reaction Status Date / Time No Known Allergies Allergy Verified 08/19/23 14:01 Review of Systems Review of Systems: All systems reviewed & are unremarkable except as noted in HPI and below Constitutional: Constitutional: Reports no additional constitutional complaints Eyes: Eyes: Reports no additional eye complaints ENT: Reports as per HPI Cardiovascular: Cardiovascular: Reports no additional cardiovascular complaints, Denies chest pain and Denies dyspnea Respiratory: Respiratory: Reports no additional respiratory complaints, Denies chest congestion, Denies cough and Denies dyspnea Gastrointestinal: Gastrointestinal: Reports no additional gastrointestinal complaints, Denies abdominal pain, Denies nausea and Denies vomiting Musculoskeletal: Musculoskeletal: Reports no additional musculoskeletal complaints Integumentary/Breasts: Skin/Breast: Reports system reviewed and no additional complaints, except as docu Neurologic: Reports system reviewed and no additional complaints, except as documented Psychiatric: Psychiatric: Reports no additional psychiatric complaints Allergic/Immunologic: Allergic/Immunologic: Reports no additional allergic/immunologic complaints PMFSH Past Medical History Medical History Abnormality of heart beat Anxiety Anxiety about health Arthritis Bilateral shoulder pain Calcific tendinitis of both shoulder regions Calcific tendonitis Close exposure to COVID-19 virus 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 DJD of right shoulder Enlarged thyroid gland Essential hypertension Ex-smoker General symptom Head ache Hearing loss Heart palpitations Hypertension Hypochondriasis Hypothyroid IFG (impaired fasting glucose) Irritable bowel syndrome Irritable bowel syndrome with constipation Left shoulder pain Leukoplakia Lung nodule < 6cm on CT (02/2020) Lupus Narcolepsy Narcolepsy and cataplexy Nausea and vomiting Obesity (BMI 30.0-34.9) Proteinuria Seasonal allergies Sjogren's disease Vaccine counseling Vitamin D toxicity Weight gain Surgical History Surgical History H/O section History of colposcopy Family History Family History Grandparent Carcinoma of colon, Onset Age: 55 Sibling Asthma Depression Mother Lung cancer Bone cancer Brain cancer Depression Cerebrovascular accident Thyroid disorder Father Heart disease Social History Social History Smoking packs per day: 0.5 Smoking cigarettes per day: 10.0 Years smoked: 22 Smoking pack-years: 11.00 Smoking status: Former smoker Tobacco type: cigarettes Second hand tobacco smoke exposure: No Smoking end date: 05/09/19 Alcohol intake: former Substance use: never Substance use type: does not use Lack of Transportation: No [place]
[2023-09-23 18:25] VITALS: BP 140/84; PULSE 90; RESP 18; TEMP 36.3; O2SAT 97
== END 2023-09-23 19:02 | disposition home or self-care (01) ==
PROVIDERS: Emergency Provider Nurse Practitioner
DX: J32.9 Chronic sinusitis, unspecified (principal); R09.82 Postnasal drip; R41.9 Unspecified symptoms and signs involving cognitive functions and awareness; M19.012 Primary osteoarthritis, left shoulder; M19.011 Primary osteoarthritis, right shoulder; I10 Essential (primary) hypertension; E03.9 Hypothyroidism, unspecified; R73.01 Impaired fasting glucose; E66.9 Obesity, unspecified; Z68.36 Body mass index [BMI] 36.0-36.9, adult; M35.00 Sjogren syndrome, unspecified; Z87.891 Personal history of nicotine dependence
CPT/HCPCS: 99213; G0463

== ENCOUNTER 2023-12-27 16:04 | Outpatient (CLI) | payer MEDICARE, MEDICAID, SELFPAY ==
[2023-12-27 17:23] LABS: Hematocrit 42.4 % (37.0-47.0); Hemoglobin 14.6 g/dL (12.0-15.0); Mean Corpuscular HGB Conc 34.4 g/dl (32-36); Mean Corpuscular Hemoglobin 30.6 pg (26-34); Mean Corpuscular Volume 88.9 fl (80-100); Mean Platelet Volume 10.5 fl (7.4-10.4); Platelet Count Result 336 k/mm3 (150-375); Red Blood Count 4.77 M/mm3 (4.2-5.4); Red Cell Distribution Width 12.3 % (11.5-14.5); White Blood Count 7.6 K/mm3 (4.5-10.0)
[2023-12-27 17:25] LABS: Add Urine Microscopic? NO; Appearance Urine Clear (Clear); Bilirubin Urine Negative (Negative); Blood Urine Negative (Negative); Color Urine Yellow (Yellow); Glucose Urine UA Negative (Negative); Ketones Urine Negative (Negative); Leukocyte Esterase Ur Negative LEU/UL (Negative); Nitrate Urine Negative (Negative); Protein Urine Negative (Negative); Specific Grav Ur 1.019 (1.001-1.035); Urobilinogen Urine 0.2 mg/dL (<2.0); pH Urine 5.5 (5.0-9.0)
[2023-12-27 17:33] LABS: Alanine Aminotransferase 28 U/L (6-35); Albumin Level 4.7 g/dL (3.5-5.1); Alkaline Phosphatase 63 U/L (38-126); Anion Gap 12 mmol/L (4-12); Aspartate Amino Transferase 29 U/L (14-36); Bilirubin,Total 0.4 mg/dL (0.2-1.3); Blood Urea Nitrogen 13 mg/dL (7-17); Calcium 9.5 mg/dL (8.4-10.2); Carbon Dioxide 24 mmol/L (22-30); Chloride 101 mmol/L (98-107); Cholesterol 223 mg/dL (0-200); Estimated Glomerular Filt Rate > 60; Glucose 89 mg/dL (65-110); HDL Direct 48 mg/dL; Sodium 137 mmol/L (137-145); Triglycerides 177 mg/dL (<150)
[2023-12-27 17:42] LABS: Hemoglobin A1C 5.6 % (<5.7)
[2023-12-27 17:44] LABS: LDL Cholesterol Direct 147 mg/dL
[2023-12-27 18:13] LABS: Creatinine Urine 166.7 mg/dL
[2023-12-27 18:16] LABS: Microalbumin Urine Random 6.6 mg/L (0-16.7)
== END 2023-12-27 16:05 | disposition home or self-care (01) ==
LOC: ANHLAB 16:10
PROVIDERS: PCP Family Medicine; Visit Provider Nurse Practitioner Family
DX: Z13.1 Encounter for screening for diabetes mellitus (principal); Z68.37 Body mass index [BMI] 37.0-37.9, adult; E78.5 Hyperlipidemia, unspecified; F41.8 Other specified anxiety disorders; G47.411 Narcolepsy with cataplexy; I10 Essential (primary) hypertension; K58.1 Irritable bowel syndrome with constipation; M32.9 Systemic lupus erythematosus, unspecified; M35.00 Sjogren syndrome, unspecified; R00.2 Palpitations; R80.9 Proteinuria, unspecified; Z13.29 Encounter for screening for other suspected endocrine disorder
CPT/HCPCS: 36415; 80053; 80061; 81003; 82043; 83036; 84443; 85027

== ENCOUNTER 2024-03-23 17:27 | Emergency (ER) | payer MEDICARE, MEDICAID, SELFPAY ==
[2024-03-23 17:38] VITALS: BP 111/75; PULSE 81; RESP 18; TEMP 36.2; O2SAT 98
--- NOTE | 2024-03-23 17:40 | ED_ITS ---
HPI - URI/Sore Throat General Chief Complaint: Upper Respiratory Infection Stated Complaint: Sore Throat Time Seen by Provider: 03/23/24 17:40 Source: patient, RN notes reviewed and old records reviewed Mode of arrival: ambulatory Limitations: no limitations History of Present Illness HPI Narrative: 39-year-old female presents to the [facility] with a sore throat x3 days. Did a telehealth visit with her primary care provider, was not able to make it to the lab to have a strep test. Related Data Home Medications Medication Instructions Recorded Confirmed lorazepam 0.5 mg tablet 0.5 mg PO DAILY PRN Anxiety 08/04/22 03/23/24 fluoxetine 20 mg capsule 20 mg PO DAILY 08/19/23 03/23/24 bupropion HCl 200 mg tablet,12 hr 200 mg PO DAILY 03/23/24 03/23/24 sustained-release hydroxychloroquine 200 mg tablet 200 mg PO DAILY 03/23/24 03/23/24 Allergies Allergy/AdvReac Type Severity Reaction Status Date / Time No Known Allergies Allergy Verified 02/28/24 13:12 Review of Systems Review of Systems: All systems reviewed & are unremarkable except as noted in HPI and below Constitutional: Constitutional: Reports no additional constitutional complaints ENT: Reports as per HPI Cardiovascular: Cardiovascular: Reports no additional cardiovascular complaints, Denies chest pain and Denies dyspnea Respiratory: Respiratory: Reports no additional respiratory complaints, Denies chest congestion, Denies cough and Denies dyspnea Gastrointestinal: Gastrointestinal: Reports no additional gastrointestinal complaints, Denies abdominal pain, Denies nausea and Denies vomiting Musculoskeletal: Musculoskeletal: Reports no additional musculoskeletal complaints Integumentary/Breasts: Skin/Breast: Reports system reviewed and no additional complaints, except as docu PMFSH Past Medical History Medical History Abnormality of heart beat Anxiety Anxiety about health Arthritis Bilateral shoulder pain Calcific tendinitis of both shoulder regions Calcific tendonitis Close exposure to COVID-19 virus 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 DJD of right shoulder Enlarged thyroid gland Essential hypertension Ex-smoker General symptom Head ache Hearing loss Heart palpitations Hypertension Hypochondriasis Hypothyroid IFG (impaired fasting glucose) Irritable bowel syndrome Irritable bowel syndrome with constipation Left shoulder pain Leukoplakia Lung nodule < 6cm on CT (02/2020) Lupus Narcolepsy Narcolepsy and cataplexy Nausea and vomiting Obesity (BMI 30.0-34.9) Proteinuria Seasonal allergies Sjogren's disease Vaccine counseling Vitamin D toxicity Weight gain Surgical History Surgical History H/O section History of colposcopy Family History Family History Grandparent Carcinoma of colon, Onset Age: 55 Sibling Asthma Depression Mother Lung cancer Bone cancer Brain cancer Depression Cerebrovascular accident Thyroid disorder Father Heart disease Social History Social History Smoking packs per day: 0.5 Smoking cigarettes per day: 10.0 Years smoked: 22 Smoking pack-years: 11.00 Smoking status: Former smoker Tobacco type: cigarettes Second hand tobacco smoke exposure: No Smoking end date: 05/09/19 Alcohol intake: former Substance use: never Substance use type: does not use Lack of Transportation: No Lack of Food: Never True Current Housing: I Have Housing Concerned About Future Housing: No Difficulty Paying Gas/Electric Bills: YES Difficulty Paying for Meds: No Currently Unemployed: No Education: Associate Degree Difficulty w/ Childcare or Family Care: No Comments At the time of my signature, I reviewed and agree with the nursing past medical, surgical, social, and family history. There is no relevant family history pertinent to the patient complaint. Exam Const: General: cooperative, healthy appearing, comfortable, no acute distress, well developed, alert and well nourished Nutritional Appearance: well nourished Orientation/consciousness: patient oriented x3 Limitations: no limitations HENMT: Head: normal to inspection Ears: hearing grossly normal bilaterally, external ears normal, TM's normal bilaterally, EAC's normal, mastoids normal and no periauricular adenopathy Face/Nose/Sinus: Normal external nose present, normal facial exam and face symmetric Face and sinus: normal facial exam and face symmetric Mouth: Yes Normal oral and palatal mucosa present, Yes lip normal and Yes tongue normal Throat: uvula midline, abnormal tonsil bilateral hypertrophy 1+; no erythema and no exudates, postnasal drainage and no uvular edema Eyes: General: appearance normal, both eyes and all related structures Alignment and Position: alignment normal Periorbital: periorbital findings normal Neck: Neck: normal visual inspection, full ROM, no lymphadenopathy and no meningeal signs Chest: Chest palpation & inspection: normal inspection of the chest Resp: Effort & Inspection: normal respiratory effort and able to speak in complete sentences Auscultation: clear to auscultation bilaterally, no crackles, no rales, no rhonchi and no wheezes Cardio: Rate: regular rate Skin: General skin exam: normal color and no rashes or lesions noted Lesions: no lesions Rashes: no rashes Wounds: no wounds Neuro: General: patient oriented x3, gait normal, tone normal, moves all extremities and no meningeal signs Cognition (Neuro): normal cognition Speech: normal speech Gait exam (Neuro): Normal gait present Extrem: General: normal to inspection, full ROM, capillary refill normal and normal gait Psych: Appearance: grossly normal and well kempt Mental Status: mental status grossly normal Speech and movement: Normal speech and movement present and Clear speech present Affect: normal affect Attitude: cooperative Course Course Level of Care: Express Care Visit Vital Signs Vital signs: Vital Signs Temperature 97.2 F L 03/23/24 17:38 Pulse Rate 81 03/23/24 17:38 Respiratory Rate 18 03/23/24 17:38 Blood Pressure 111/75 03/23/24 17:38 Pulse Oximetry 98 03/23/24 17:38 Oxygen Delivery Room Air 03/23/24 17:38 Temperature 97.2 F L 03/23/24 17:38 Pulse Rate 81 03/23/24 17:38 Respiratory Rate 18 03/23/24 17:38 Blood Pressure 111/75 03/23/24 17:38 Pulse Oximetry 98 03/23/24 17:38 Oxygen Delivery Room Air 03/23/24 17:38 Reviewed MDM - URI/Sore Throat MDM Narrative Medical decision making narrative: Patient sitting comfortably in exam room. Nontoxic, vitals stable. Patient presents for sore throat. Strep test negative will culture Patient appropriate for outpatient treatment and follow-up Discharge instructions reviewed with patient, as well as provided in writing per nursing staff. The instructions also include specific and strict return/GO TO THE ER as well as f/u information. All questions have been answered, and the patient deny any further questions with discharge and discharge plan. Some parts of this dictation were generated by voice recognition software and may contain typographical and/or grammatical inaccuracies. Differential Diagnosis Differential diagnosis: Likely upper respiratory infection, otitis media, sinusitis, viral infection, bronchitis, influenza and pharyngitis Lab Data Lab results narrative: Negative strep Critical Care Time Critical Care Time Critical Care Time: No Discharge Plan Discharge Clinical Impression: Acute viral pharyngitis, PND (post-nasal drip) Patient Disposition: Home, Self-Care Condition: Stable Instructions: Antibiotic Form, Pharyngitis (ED), Postnasal Drip (DC) Additional Instructions: Your rapid strep swab was negative today at [facility]. A throat culture will be sent to the laboratory for further testing. If the test is positive, you will receive a phone call within 48 hours and an appropriate antibiotic will be initiated at that time. Your symptoms are likely due to a viral illness, which is not treated with antibiotics. -Alternate Tylenol and Motrin per package directions for fever or pain. -Antihistamine medication such as Benadryl at night and Zyrtec/Claritin/Tianna during the day can help improve symptoms. -doing daily nasal irrigations can help relieve pressure your sinuses. Things like a Neti pot -Use Flonase twice a day for 5 days then daily to help reduce the inflammation and dry up your sinuses. -You can also use Sudafed or Mucinex. Be sure to drink plenty of water with these medications at least 8 ounces with every dose and it is important to drink 8 to 10 glasses of water per day. Water is a natural decongestant -Eat and drink things that are easy to swallow, like tea or soup, or popsicles. -Oral rinses such as: Salt water gargles and/or may use topical anesthetic (eg. Chloraseptic spray) or lozenges to relieve dryness or throat pain). -Frequent hand washing or hand rubber tire curer is one of the best ways to prevent spread of infection. -Using a vaporizer or humidifier at night will also help thin secretions and help with coughing up phlegm. -Follow up with primary care provider in 5-7 days if condition is not improving - For new or worsening symptoms go directly to the nearest ER Patient Language: Citizen Of [place] Prescriptions: No Action hydroxychloroquine 200 mg tablet 200 mg PO DAILY bupropion HCl 200 mg tablet sustained-release 12 hr 200 mg PO DAILY lorazepam 0.5 mg tablet 0.5 mg PO DAILY PRN (Reason: Anxiety) amlodipine 5 mg tablet 5 mg PO DAILY Qty: 90 1RF Hold Instructions: .Provider Order fluoxetine 20 mg capsule 20 mg PO DAILY metoprolol tartrate 25 mg tablet 25 mg PO BID 90 Days Qty: 180 1RF Hold Instructions: .Provider Order Follow-up/Referrals: Alisha Lal APRN [Primary Care Provider] - 2 Weeks ([facility] care follow up ) Stand Alone Forms: Work/School Release IP Time of Disposition: 17:52
[2024-03-26 10:02] LABS: EDSTREPNEGPOS1 Negative (Negative)
== END 2024-03-23 17:57 | disposition home or self-care (01) ==
PROVIDERS: Emergency Provider Nurse Practitioner; PCP Nurse Practitioner Family
DX: J02.8 Acute pharyngitis due to other specified organisms (principal); R09.82 Postnasal drip; Z87.891 Personal history of nicotine dependence; M19.012 Primary osteoarthritis, left shoulder; M19.011 Primary osteoarthritis, right shoulder; I10 Essential (primary) hypertension; E03.9 Hypothyroidism, unspecified; E66.9 Obesity, unspecified; Z68.38 Body mass index [BMI] 38.0-38.9, adult; M35.00 Sjogren syndrome, unspecified; F41.9 Anxiety disorder, unspecified
CPT/HCPCS: 87081; 87880; 99213; G0463

== ENCOUNTER 2024-11-27 16:07 | Outpatient (CLI) | payer MEDICARE, MEDICAID, SELFPAY ==
--- OUTSIDE RECORDS SUMMARY | 2024-11-27 16:10 | XMS_ITS | Clinical Summary ---
Author Organization [facility] Address [address] [place] [address] Phone Care Team Providers Care Purchasing Engineer Name Role Phone Erwin Arriaga MD Primary Care Provider [phone] Allergies No known active allergies Medications amLODIPine (NORVASC) 10 MG Tablet Take 5 mg by mouth daily. Active traMADol (ULTRAM) 50 MG Tablet Take 1-2 Tabs by mouth every 6 hours as needed for Pain. 20 Tab 0 6 Active buPROPion SR (WELLBUTRIN SR) 150 MG TABLET SR 12 HR Take 200 mg by mouth 2 times daily. 7 Active FLUoxetine (PROZAC) 20 MG Capsule Take 20 mg by mouth daily. 3 7 Active LINZESS 290 MCG Capsule Take 290 mcg by mouth daily. 7 Active traMADol (ULTRAM) 50 MG Tablet Take 1 Tab by mouth every 6 hours as needed for Pain. 20 Tab 7 Active metoprolol tartrate (LOPRESSOR) 25 MG Tablet Take 25 mg by mouth 2 times daily. Active famotidine (PEPCID) 40 MG Tablet Take 40 mg by mouth daily. Active LORazepam (ATIVAN) 1 MG Tablet Take 1 Tab by mouth every 8 hours as needed for Anxiety (Take 1 at bedtime. May take a second in 1 hr if can't slee ---). 20 Tab 9 Active albuterol 108 (90 Base) MCG/ACT Aerosol Solution take 2 Puffs by inhalation every 6 hours as needed for Cough. 6.7 g Active Family History Medical History Relation Name Comments Heart Disease Father Hypertension Father Depression Mother Hypertension Mother Relation Name Status Comments Father Mother Social History Tobacco Use Types Packs/Day Years Used Date Smoking Tobacco: Former Alcohol Use Standard Drinks/Week Comments Not Currently 0 (1 standard drink = 0.6 oz pur e alcohol) Comments No Sex and Gender Information Value Date Recorded Sex Assigned at Not on file Legal Sex Female 12:26 AM CDT Gender Identity Not on file Sexual Orientation Not on file Last Filed Vital Signs Vital Sign Reading Time Taken Comments Blood Pressure 111/64 03/30/2022 4:37 PM WET PROCESS MILLER HEAD ASSISTANT Pulse 94 03/30/2022 4:37 PM WET PROCESS MILLER HEAD ASSISTANT Temperature 37.2 C (98.9 F) 03/30/2022 4:37 PM WET PROCESS MILLER HEAD ASSISTANT Respiratory Rate 16 03/30/2022 4:37 PM WET PROCESS MILLER HEAD ASSISTANT Oxygen Saturation 95% 03/30/2022 4:37 PM WET PROCESS MILLER HEAD ASSISTANT Inhaled Oxygen Concentration - - Weight 90.7 kg (200 lb) 03/30/2022 4:37 PM WET PROCESS MILLER HEAD ASSISTANT Height 165.1 cm (5' 5) 03/30/2022 4:37 PM WET PROCESS MILLER HEAD ASSISTANT Body Mass Index 33.28 03/30/2022 4:37 PM WET PROCESS MILLER HEAD ASSISTANT Plan of Treatment Health Maintenance Due Date Last Done Comments Hepatitis C Virus (HCV) Screening 1984 Human Papillomavirus (HPV) Immunization (1 - 3-dose series) 1999 Hepatitis B Immunization (1 of 3 - 19+ 3-dose series) 2003 Pap Smear 2005 Cervical Cancer Screening (CCS) 2014 HPV/Cotest 2014 SARS-COV-2 Immunization ( season) 2024 Influenza Immunization (#1) 01/07/202501/2017, 03/12/2016 Respiratory Syncytial Virus (RSV) Immunization (Adult) (1 - 1-dose 75+ series) 2059 DTaP/Tdap/Td Immunization Discontinued 11/11/2016 TdaP Immunization Completed 11/11/2016 Meningococcal Immunization (ACWY) Aged Out No longer eligible based on patient's age to complete this topic Pneumococcal Immunization Combined Aged Out No longer eligible based on patient's age to complete this topic Rotavirus Immunization Aged Out No lo nger eligible based on patient's age to complete this topic Insurance MEDICARE [place]ICAID [place] Care Teams Purchasing Engineer Relationship Specialty Start Date End Date Erwin Arriaga MD [address], [address] [place] [address] PCP - General Internal Medicine 05/10/21
--- OUTSIDE RECORDS SUMMARY | 2024-11-27 16:10 | XMS_ITS | Encounter Summary ---
Author Organization [facility] Healthcare Address [address] [place] [address] Care Team Providers Care Logging Worker Name Role Phone Erwin Arriaga MD Primary Care Provider [phone] Alisha Lal NP Primary Care Provider [phone] Encounter Details Date Type Department Care Team (Late st Contact Info) Description 02/14/2020 Telephone [facility] [address] [place] [id number] [address] Giron, RT Social History Tobacco Use Types Packs/Day Years Used Date Smoking Tobacco: Former Smokeless Tobacco: Never Alcohol Use Standard Drinks/Week Comments No 0 (1 standard drink = 0.6 oz pur e alcohol) PHQ-2 Answer Date Recorded PHQ-2 Score 0 02/08/2019 Comments No Sex and Gender Information Value Date Recorded Sex Assigned at Not on file Legal Sex Female 1:54 AM 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
--- OUTSIDE RECORDS SUMMARY | 2024-11-27 16:10 | XMS_ITS | Patient Health Record ---
Author Organization [facility] [employer] Address [address] [place] [address] Care Team Providers Care Kiln Firer Name Role Phone QuintinAmy Unavailable [phone] Yvette Starkey Unavailable [phone] Allergies No Known Allergies Results Component Value Reference Range Notes UDT Reviewed date:06/25/2024 01:23:24 PM Interpretation: Performing Lab: Notes/Report: THC NEG 0 - 50 ng/ml Cocaine NEG 0 - 300 ng/ml Amphetamine NEG 0 - 1000 ng/ml Buprenorphine (BUP) NEG 0 - 10 ng/ml Secobarbital (Bar) NEG 0 - 300 ng/ml Oxazepam (BZO) POS 0 - 300 ng/ml 2-qfpsgvjqfy-5,0-xucwrsof-8,3-diphenylpyrrolidine (ECTOR P) NEG 0 - 300 ng/ml Methamphetamine (MET) NEG 0 - 1000 ng/ml Methylenedioxymethamphetamine (MDMA) NEG 0 - 500 ng/ml Morphine (MOP 300/[id number]) NEG 0 - 300 ng/ml Methadone (MTD) NEG 0 - 300 ng/ml Phencyclidine (PCP) NEG 0 - 25 ng/ml Nortriptyline (TCA) NEG 0 - 1000 ng/ml Oxycodone NEG 0 - 300 ng/ml x NEG 0 - 300 ng/ml Reason For Referral No Information Medications Medication SIG (Take, Route, Frequency, Duration) Notes Start Date End Date Status Triamcinolone Acetonide 0.1 % Mouth/Throat 08/23/2023 Not-Taking Sunosi 75 MG Oral 08/23/2023 Not-Ta batsheva Chlorhexidine Gluconate 0.12% Mouth/Throat 08/23/2023 Not-Taking amLODIPine Besylate 5 MG Oral 08/23/2023 Active Linzess 290 MCG Oral 08/23/2023 Not -Taking Cyclobenzaprine HCl 5 MG Oral PRN 08/23/2023 Active Pantoprazole Sodium 40 MG Oral 08/23/2023 Not-Taking Metoprolol Tartrate 25 MG Oral 08/23/2023 Active Hydroxychloroquine Sulfate 200 MG Oral 08/23/2023 Not-Taking LORazepam 0.5 MG 1 tablet Oral three times a day; Duration: 30 days 09/21/2024 Active amLODIPine Besylate 2.5 MG Oral 08/23/2023 Not-Taking FLUoxetine HCl 20 MG 1 capsule Oral Once a day; Duration: 90 days Active Nitroglycerin 0.4 MG Sublingual 08/23/2023 Not-Taking FLUoxetine HCl 40 MG 1 capsule Oral Once a day; Duration: 90 days Active azaTHIOprine 50 MG Oral 08/23/2023 Not-Taking buPROPion HCl ER (SR) 200 MG take 1 tabl et Oral twice a day; Duration: 90 days Active metroNIDAZOLE 500 MG Oral 08/23/2023 Not-Taking Venlafaxine HCl ER 75 MG Oral 08/23/2023 Not-Taking Fluconazole 150 MG Oral 08/23/2023 Not-Taking Immunizations Vaccine Route Administration Date Status Comme nts Influenza virus vaccine, quadrivalent (IIV4), split virus, 0.25 mL dosage Unknown 03/12/2016 Administered Influenza virus vaccine, quadrivalent (IIV4), split virus, 0.25 mL dosage Unknown 03/17/2017 Administered Influenza virus vaccine, quadrivalent (IIV4), split virus, 0.25 mL dosage Unknown 02/02/2018 Administered Tdap Unknown 11/11/2016 Administered Tetanus toxoid, adsorbed Unknown 05/09/2006 Administere d Social History Tobacco Use: Social History Observation Description Date Details (start date - stop date) Former Smoker 05/09/2000 - 12/27/2019 Sex Assigned At : Social History Observation Description Sex Assigned At Female Tobacco Control (Standard) Question Answer Notes Tobacco use: Former smoker When did you start smoking? 05/09/2000 When did you stop smoking? 12/27/2019 How long has it been since you last smoked? 1-5 years AUDIT-C (Standard) Question Answer Notes Did you have a drink containing alcohol in the p ast year? No Points 000 Interpretation Negative Section Notes: Non smoker Non smoker Non smoker Non smoker Problems Problem Type SNOMED Code ICD Code Onset Dates Problem Status W/U Status Risk Notes Problem Moderate recurrent major depression (31514838) Major depressive disorder, recurrent, moderate (F33.1) 4 Active confirmed Problem Generalized anxiety disorder (39356629) Generalized anxiety disorder (F41.1) 4 Active confirmed Problem Post-traumatic stress disorder (86279305) Post-traumatic stress disorder, unspecified (F43.10) 1 Active confirmed Problem Insomnia disorder related to another mental disorder (36700300) Insomnia due to other mental disorder (F51.05) 4 Active confirmed Problem Narcolepsy without cataplexy (48350015076983) 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) 4 Active confirmed Problem Long-term current use of drug therapy (409739256) Other chcf (current) drug therapy (Z79.899) 4 Active confirmed Vital Signs Heart Rate 79 /min 09/21/2024 Respiratory Rate 16 /min 09/21/2024 Blood pressure diastolic 75 mm Hg 09/21/2024 Height-cm 165.10 cm 09/21/2024 Weight-kg 107.5 kg 09/21/2024 Height 65.00 in 09/21/2024 Blood pressure systolic 107 mm Hg 09/21/2024 Weight 237 lbs 09/21/2024 BMI 39.43 kg/m2 09/21/2024 Encounters Encounter Location Date Provider Diagnosis [facility] [facility] [address] [address] 02/21/2024 Amy Ribeiro [facility] [address] [address] 03/01/2024 Amy Ribeiro Major depressive disorder, recurrent, moderate F33.1 ; Generalized anxiety disorder F41.1 ; Insomnia due to other mental disorder F51.05 ; Post-traumatic stress disorder, unspecified F43.10 ; Narcolepsy without cataplexy G47.419 and Other [facility] (current) drug therapy Z79.899 [facility] [address] [place] [address] [address] 06/25/2024 Amy Ribeiro Major depressive disorder, recurrent, moderate F33.1 ; Generalized anxiety disorder F41.1 ; Insomnia due to other mental disorder F51.05 ; Post-traumatic stress disorder, unspecified F43.10 ; Narcolepsy without cataplexy G47.419 and 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.899 [facility], [address] [address] 09/06/2024 Yvette Young Major depressive disorder, recurrent, moderate F33.1 ; Post-traumatic stress disorder, unspecified F43.10 ; Generalized anxiety disorder F41.1 and Encounter for screening for depression Z13.[address] [address] 09/21/2024 Amy Ribeiro Encounter for screening for depression Z13.31 ; Major depressive disorder, recurrent, moderate F33.1 ; Generalized anxiety disorder F41.1 ; Insomnia due to other mental disorder F51.05 ; Post-traumatic stress disorder, unspecified F43.10 ; Narcolepsy without cataplexy G47.419 ; 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.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 and Encounter for screening for cardiovascular disorders Z13.[address] [address] 10/23/2024 Yvette Young Major depressive disorder, recurrent, moderate F33.1 ; Generalized anxiety disorder F41.1 ; Post-traumatic stress disorder, unspecified F43.10 and Encounter for screening for depression Z13.[address] [address] 11/07/2024 Yvette Young Major depressive disorder, recurrent, moderate F33.1 ; Generalized anxiety disorder F41.1 ; Post-traumatic stress disorder, unspecified F43.10 and Encounter for screening for depression Z13.31 [facility], [address] [address] 06/26/2024 Yvette Young [facility], [address] [address] 06/23/2024 Amy Ribeiro [facility] [address] [facility] [address] [place] [address] 09/17/2024 Amy Ribeiro Generalized anxiety disorder F41.1 Assessments Encounter Date Diagnosis (ICD Code) Assessment Notes Treatment Notes Treatment Clinical Notes Section Notes 03/01/2024 Major depressive disorder, recurrent, moderate (ICD-10 - F33.1) Preventing Depression From Coming Back: Care Instructions material was published, Learning About Depression material was published 1. Mild recurrent major depression - Prozac 60 mg daily Wellbutrin SR 200 mg twice a day obtain labs PCP educated on all medications, benefits, side effects and risk, and educated on depression, anxiety, and ADHD, mood d/o and educated on compliance of medications, metabolic and movement d/o education, appointment's, continue therapy discussion with patient about course of treatment and patient instructions. SSRI side effects discussed including but not limited to, gastric upset, nausea, vomiting, diarrhea and/or constipation, weight changes, sexual side effects including loss of libido, increased suicidal thoughts/behavi ors in children and young adults, and serotonin syndrome. patient educated on importance of prevention care. labs, PAP, mammograms, colonoscopy ect 2. Generalized anxiety disorder -Lorazepam 0.5 mg three times a day as needed Discussed and educated pt regarding benzodiazepines are generally not intended for prolonged use and that use can cause tolerance, dependence, depression, and associated memory issues including dementias (this list is not exhaustive). Benzodiazepine use is generally not recommended concurrently with pain medications and/or other controlled substances due to increased risks of profound sedation, respiratory depression, coma, and even . They are not to be used with any alcohol, as this combination can also be lethal. Patient was provided caution 3. 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 Posttraumatic stress disorder -therapy JACQUELIN 5. Long-term current use of drug therapy 06/25/2024 Major depressive disorder, recurrent, moderate (ICD-10 - F33.1) Preventing Depression From Coming Back: Care Instructions material was published, Learning About Depression material was published 1. major depression - Prozac 60 mg daily Wellbutrin SR 200 mg twice a day obtain labs PCP educated on all medications, benefits, side effects and risk, and educated on depression, anxiety, and ADHD, mood d/o and educated on compliance of medications, metabolic and movement d/o education, appointment's, continue therapy discussion with patient about course of treatment and patient instructions. SSRI side effects discussed including but not limited to, gastric upset, nausea, vomiting, diarrhea and/or constipation, weight changes, sexual side effects including loss of libido, increased suicidal thoughts/behavi ors in children and young adults, and serotonin syndrome. patient educated on importance of prevention care. labs, PAP, mammograms, colonoscopy ect 2. Generalized anxiety disorder -Lorazepam 0.5 mg three times a day as needed Discussed and educated pt regarding benzodiazepines are generally not intended for prolonged use and that use can cause tolerance, dependence, depression, and associated memory issues including dementias (this list is not exhaustive). Benzodiazepine use is generally not recommended concurrently with pain medications and/or other controlled substances due to increased risks of profound sedation, respiratory depression, coma, and even . They are not to be used with any alcohol, as this combination can also be lethal. Patient was provided caution 3. 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 Posttraumatic stress disorder -therapy JACQUELIN 5. Long-term current use of drug therapy 09/06/2024 Major depressive disorder, recurrent, moderate (ICD-10 - F33.1) 09/17/2024 Generalized anxiety disorder (ICD-10 - F41.1) 09/21/2024 Major depressive disorder, recurrent, moderate (ICD-10 - F33.1) Preventing Depression From Coming Back: Care Instructions material was published, Learning About Depression material was published 1. major depression - Prozac 60 mg daily Wellbutrin SR 200 mg twice a day obtain labs PCP educated on all medications, benefits, side effects and risk, and educated on depression, anxiety, and ADHD, mood d/o and educated on compliance of medications, metabolic and movement d/o education, appointment's, continue therapy discussion with patient about course of treatment and patient instructions. SSRI side effects discussed including but not limited to, gastric upset, nausea, vomiting, diarrhea and/or constipation, weight changes, sexual side effects including loss of libido, increased suicidal thoughts/behavi ors in children and young adults, and serotonin syndrome. patient educated on importance of prevention care. labs, PAP, mammograms, colonoscopy ect 2. Generalized anxiety disorder -Lorazepam 0.5 mg three times a day as needed- Discussed and educated pt regarding benzodiazepines are generally not intended for prolonged use and that use can cause tolerance, dependence, depression, and associated memory issues including dementias (this list is not exhaustive). Benzodiazepine use is generally not recommended concurrently with pain medications and/or other controlled substances due to increased risks of profound sedation, respiratory depression, coma, and even . They are not to be used with any alcohol, as this combination can also be lethal. Patient was provided caution 3. 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 Posttraumatic stress disorder -therapy JACQUELIN 5. Long-term current use of drug therapy 09/06/2024 Post-traumatic stress disorder, unspecified (ICD-10 - F43.10) 09/21/2024 Encounter for screening for depression (ICD-10 - Z13.31) 1. major depression - Prozac 60 mg daily Wellbutrin SR 200 mg twice a day obtain labs PCP educated on all medications, benefits, side effects and risk, and educated on depression, anxiety, and ADHD, mood d/o and educated on compliance of medications, metabolic and movement d/o education, appointment's, continue therapy discussion with patient about course of treatment and patient instructions. SSRI side effects discussed including but not limited to, gastric upset, nausea, vomiting, diarrhea and/or constipation, weight changes, sexual side effects including loss of libido, increased suicidal thoughts/behavi ors in children and young adults, and serotonin syndrome. patient educated on importance of prevention care. labs, PAP, mammograms, colonoscopy ect 2. Generalized anxiety disorder -Lorazepam 0.5 mg three times a day as needed- Discussed and educated pt regarding benzodiazepines are generally not intended for prolonged use and that use can cause tolerance, dependence, depression, and associated memory issues including dementias (this list is not exhaustive). Benzodiazepine use is generally not recommended concurrently with pain medications and/or other controlled substances due to increased risks of profound sedation, respiratory depression, coma, and even . They are not to be used with any alcohol, as this combination can also be lethal. Patient was provided caution 3. 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 Posttraumatic stress disorder -therapy JACQUELIN 5. Long-term current use of drug therapy 10/23/2024 Major depressive disorder, recurrent, moderate (ICD-10 - F33.1) 10/23/2024 Generalized anxiety disorder (ICD-10 - F41.1) 11/07/2024 Major depressive disorder, recurrent, moderate (ICD-10 - F33.1) 11/07/2024 Generalized anxiety disorder (ICD-10 - F41.1) 11/07/2024 Post-traumatic stress disorder, unspecified (ICD-10 - F43.10) 10/23/2024 Post-traumatic stress disorder, unspecified (ICD-10 - F43.10) 09/21/2024 Generalized anxiety disorder (ICD-10 - F41.1) Generalized Anxiety Disorder: Care Instructions material was published, Learning About Generalized Anxiety Disorder material was published, Learning About Anxiety Disorders material was published 1. major depression - Prozac 60 mg daily Wellbutrin SR 200 mg twice a day obtain labs PCP educated on all medications, benefits, side effects and risk, and educated on depression, anxiety, and ADHD, mood d/o and educated on compliance of medications, metabolic and movement d/o education, appointment's, continue therapy discussion with patient about course of treatment and patient instructions. SSRI side effects discussed including but not limited to, gastric upset, nausea, vomiting, diarrhea and/or constipation, weight changes, sexual side effects including loss of libido, increased suicidal thoughts/behavi ors in children and young adults, and serotonin syndrome. patient educated on importance of prevention care. labs, PAP, mammograms, colonoscopy ect 2. Generalized anxiety disorder -Lorazepam 0.5 mg three times a day as needed- Discussed and educated pt regarding benzodiazepines are generally not intended for prolonged use and that use can cause tolerance, dependence, depression, and associated memory issues including dementias (this list is not exhaustive). Benzodiazepine use is generally not recommended concurrently with pain medications and/or other controlled substances due to increased risks of profound sedation, respiratory depression, coma, and even . They are not to be used with any alcohol, as this combination can also be lethal. Patient was provided caution 3. 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 Posttraumatic stress disorder -therapy JACQUELIN 5. Long-term current use of drug therapy 09/06/2024 Generalized anxiety disorder (ICD-10 - F41.1) 06/25/2024 Generalized anxiety disorder (ICD-10 - F41.1) Generalized Anxiety Disorder: Care Instructions material was published, Learning About Generalized Anxiety Disorder material was published, Learning About Anxiety Disorders material was published 1. major depression - Prozac 60 mg daily Wellbutrin SR 200 mg twice a day obtain labs PCP educated on all medications, benefits, side effects and risk, and educated on depression, anxiety, and ADHD, mood d/o and educated on compliance of medications, metabolic and movement d/o education, appointment's, continue therapy discussion with patient about course of treatment and patient instructions. SSRI side effects discussed including but not limited to, gastric upset, nausea, vomiting, diarrhea and/or constipation, weight changes, sexual side effects including loss of libido, increased suicidal thoughts/behavi ors in children and young adults, and serotonin syndrome. patient educated on importance of prevention care. labs, PAP, mammograms, colonoscopy ect 2. Generalized anxiety disorder -Lorazepam 0.5 mg three times a day as needed Discussed and educated pt regarding benzodiazepines are generally not intended for prolonged use and that use can cause tolerance, dependence, depression, and associated memory issues including dementias (this list is not exhaustive). Benzodiazepine use is generally not recommended concurrently with pain medications and/or other controlled substances due to increased risks of profound sedation, respiratory depression, coma, and even . They are not to be used with any alcohol, as this combination can also be lethal. Patient was provided caution 3. 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 Posttraumatic stress disorder -therapy JACQUELIN 5. Long-term current use of drug therapy 03/01/2024 Generalized anxiety disorder (ICD-10 - F41.1) Generalized Anxiety Disorder: Care Instructions material was published, Learning About Generalized Anxiety Disorder material was published, Learning About Anxiety Disorders material was published 1. Mild recurrent major depression - Prozac 60 mg daily Wellbutrin SR 200 mg twice a day obtain labs PCP educated on all medications, benefits, side effects and risk, and educated on depression, anxiety, and ADHD, mood d/o and educated on compliance of medications, metabolic and movement d/o education, appointment's, continue therapy discussion with patient about course of treatment and patient instructions. SSRI side effects discussed including but not limited to, gastric upset, nausea, vomiting, diarrhea and/or constipation, weight changes, sexual side effects including loss of libido, increased suicidal thoughts/behavi ors in children and young adults, and serotonin syndrome. patient educated on importance of prevention care. labs, PAP, mammograms, colonoscopy ect 2. Generalized anxiety disorder -Lorazepam 0.5 mg three times a day as needed Discussed and educated pt regarding benzodiazepines are generally not intended for prolonged use and that use can cause tolerance, dependence, depression, and associated memory issues including dementias (this list is not exhaustive). Benzodiazepine use is generally not recommended concurrently with pain medications and/or other controlled substances due to increased risks of profound sedation, respiratory depression, coma, and even . They are not to be used with any alcohol, as this combination can also be lethal. Patient was provided caution 3. 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 Posttraumatic stress disorder -therapy JACQUELIN 5. Long-term current use of drug therapy 03/01/2024 Insomnia due to other mental disorder (ICD-10 - F51.05) 1. Mild recurrent major depression - Prozac 60 mg daily Wellbutrin SR 200 mg twice a day obtain labs PCP educated on all medications, benefits, side effects and risk, and educated on depression, anxiety, and ADHD, mood d/o and educated on compliance of medications, metabolic and movement d/o education, appointment's, continue therapy discussion with patient about course of treatment and patient instructions. SSRI side effects discussed including but not limited to, gastric upset, nausea, vomiting, diarrhea and/or constipation, weight changes, sexual side effects including loss of libido, increased suicidal thoughts/behavi ors in children and young adults, and serotonin syndrome. patient educated on importance of prevention care. labs, PAP, mammograms, colonoscopy ect 2. Generalized anxiety disorder -Lorazepam 0.5 mg three times a day as needed Discussed and educated pt regarding benzodiazepines are generally not intended for prolonged use and that use can cause tolerance, dependence, depression, and associated memory issues including dementias (this list is not exhaustive). Benzodiazepine use is generally not recommended concurrently with pain medications and/or other controlled substances due to increased risks of profound sedation, respiratory depression, coma, and even . They are not to be used with any alcohol, as this combination can also be lethal. Patient was provided caution 3. 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 Posttraumatic stress disorder -therapy JACQUELIN 5. Long-term current use of drug therapy 06/25/2024 Insomnia due to other mental disorder (ICD-10 - F51.05) 1. major depression - Prozac 60 mg daily Wellbutrin SR 200 mg twice a day obtain labs PCP educated on all medications, benefits, side effects and risk, and educated on depression, anxiety, and ADHD, mood d/o and educated on compliance of medications, metabolic and movement d/o education, appointment's, continue therapy discussion with patient about course of treatment and patient instructions. SSRI side effects discussed including but not limited to, gastric upset, nausea, vomiting, diarrhea and/or constipation, weight changes, sexual side effects including loss of libido, increased suicidal thoughts/behavi ors in children and young adults, and serotonin syndrome. patient educated on importance of prevention care. labs, PAP, mammograms, colonoscopy ect 2. Generalized anxiety disorder -Lorazepam 0.5 mg three times a day as needed Discussed and educated pt regarding benzodiazepines are generally not intended for prolonged use and that use can cause tolerance, dependence, depression, and associated memory issues including dementias (this list is not exhaustive). Benzodiazepine use is generally not recommended concurrently with pain medications and/or other controlled substances due to increased risks of profound sedation, respiratory depression, coma, and even . They are not to be used with any alcohol, as this combination can also be lethal. Patient was provided caution 3. 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 Posttraumatic stress disorder -therapy JACQUELIN 5. Long-term current use of drug therapy 10/23/2024 Encounter for screening for depression (ICD-10 - Z13.31) 09/21/2024 Insomnia due to other mental disorder (ICD-10 - F51.05) 1. major depression - Prozac 60 mg daily Wellbutrin SR 200 mg twice a day obtain labs PCP educated on all medications, benefits, side effects and risk, and educated on depression, anxiety, and ADHD, mood d/o and educated on compliance of medications, metabolic and movement d/o education, appointment's, continue therapy discussion with patient about course of treatment and patient instructions. SSRI side effects discussed including but not limited to, gastric upset, nausea, vomiting, diarrhea and/or constipation, weight changes, sexual side effects including loss of libido, increased suicidal thoughts/behavi ors in children and young adults, and serotonin syndrome. patient educated on importance of prevention care. labs, PAP, mammograms, colonoscopy ect 2. Generalized anxiety disorder -Lorazepam 0.5 mg three times a day as needed- Discussed and educated pt regarding benzodiazepines are generally not intended for prolonged use and that use can cause tolerance, dependence, depression, and associated memory issues including dementias (this list is not exhaustive). Benzodiazepine use is generally not recommended concurrently with pain medications and/or other controlled substances due to increased risks of profound sedation, respiratory depression, coma, and even . They are not to be used with any alcohol, as this combination can also be lethal. Patient was provided caution 3. 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 Posttraumatic stress disorder -therapy JACQUELIN 5. Long-term current use of drug therapy 09/06/2024 Encounter for screening for depression (ICD-10 - Z13.31) 11/07/2024 Encounter for screening for depression (ICD-10 - Z13.31) 09/21/2024 Post-traumatic stress disorder, unspecified (ICD-10 - F43.10) Post-Traumatic Stress Disorder (PTSD): Care Instructions material was published 1. major depression - Prozac 60 mg daily Wellbutrin SR 200 mg twice a day obtain labs PCP educated on all medications, benefits, side effects and risk, and educated on depression, anxiety, and ADHD, mood d/o and educated on compliance of medications, metabolic and movement d/o education, appointment's, continue therapy discussion with patient about course of treatment and patient instructions. SSRI side effects discussed including but not limited to, gastric upset, nausea, vomiting, diarrhea and/or constipation, weight changes, sexual side effects including loss of libido, increased suicidal thoughts/behavi ors in children and young adults, and serotonin syndrome. patient educated on importance of prevention care. labs, PAP, mammograms, colonoscopy ect 2. Generalized anxiety disorder -Lorazepam 0.5 mg three times a day as needed- Discussed and educated pt regarding benzodiazepines are generally not intended for prolonged use and that use can cause tolerance, dependence, depression, and associated memory issues including dementias (this list is not exhaustive). Benzodiazepine use is generally not recommended concurrently with pain medications and/or other controlled substances due to increased risks of profound sedation, respiratory depression, coma, and even . They are not to be used with any alcohol, as this combination can also be lethal. Patient was provided caution 3. 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 Posttraumatic stress disorder -therapy JACQUELIN 5. Long-term current use of drug therapy 06/25/2024 Post-traumatic stress disorder, unspecified (ICD-10 - F43.10) Post-Traumatic Stress Disorder (PTSD): Care Instructions material was published 1. major depression - Prozac 60 mg daily Wellbutrin SR 200 mg twice a day obtain labs PCP educated on all medications, benefits, side effects and risk, and educated on depression, anxiety, and ADHD, mood d/o and educated on compliance of medications, metabolic and movement d/o education, appointment's, continue therapy discussion with patient about course of treatment and patient instructions. SSRI side effects discussed including but not limited to, gastric upset, nausea, vomiting, diarrhea and/or constipation, weight changes, sexual side effects including loss of libido, increased suicidal thoughts/behavi ors in children and young adults, and serotonin syndrome. patient educated on importance of prevention care. labs, PAP, mammograms, colonoscopy ect 2. Generalized anxiety disorder -Lorazepam 0.5 mg three times a day as needed Discussed and educated pt regarding benzodiazepines are generally not intended for prolonged use and that use can cause tolerance, dependence, depression, and associated memory issues including dementias (this list is not exhaustive). Benzodiazepine use is generally not recommended concurrently with pain medications and/or other controlled substances due to increased risks of profound sedation, respiratory depression, coma, and even . They are not to be used with any alcohol, as this combination can also be lethal. Patient was provided caution 3. 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 Posttraumatic stress disorder -therapy JACQUELIN 5. Long-term current use of drug therapy 03/01/2024 Post-traumatic stress disorder, unspecified (ICD-10 - F43.10) Post-Traumatic Stress Disorder (PTSD): Care Instructions material was published 1. Mild recurrent major depression - Prozac 60 mg daily Wellbutrin SR 200 mg twice a day obtain labs PCP educated on all medications, benefits, side effects and risk, and educated on depression, anxiety, and ADHD, mood d/o and educated on compliance of medications, metabolic and movement d/o education, appointment's, continue therapy discussion with patient about course of treatment and patient instructions. SSRI side effects discussed including but not limited to, gastric upset, nausea, vomiting, diarrhea and/or constipation, weight changes, sexual side effects including loss of libido, increased suicidal thoughts/behavi ors in children and young adults, and serotonin syndrome. patient educated on importance of prevention care. labs, PAP, mammograms, colonoscopy ect 2. Generalized anxiety disorder -Lorazepam 0.5 mg three times a day as needed Discussed and educated pt regarding benzodiazepines are generally not intended for prolonged use and that use can cause tolerance, dependence, depression, and associated memory issues including dementias (this list is not exhaustive). Benzodiazepine use is generally not recommended concurrently with pain medications and/or other controlled substances due to increased risks of profound sedation, respiratory depression, coma, and even . They are not to be used with any alcohol, as this combination can also be lethal. Patient was provided caution 3. 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 Posttraumatic stress disorder -therapy JACQUELIN 5. 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 Mild recurrent major depression - Prozac 60 mg daily Wellbutrin SR 200 mg twice a day obtain labs PCP educated on all medications, benefits, side effects and risk, and educated on depression, anxiety, and ADHD, mood d/o and educated on compliance of medications, metabolic and movement d/o education, appointment's, continue therapy discussion with patient about course of treatment and patient instructions. SSRI side effects discussed including but not limited to, gastric upset, nausea, vomiting, diarrhea and/or constipation, weight changes, sexual side effects including loss of libido, increased suicidal thoughts/behavi ors in children and young adults, and serotonin syndrome. patient educated on importance of prevention care. labs, PAP, mammograms, colonoscopy ect 2. Generalized anxiety disorder -Lorazepam 0.5 mg three times a day as needed Discussed and educated pt regarding benzodiazepines are generally not intended for prolonged use and that use can cause tolerance, dependence, depression, and associated memory issues including dementias (this list is not exhaustive). Benzodiazepine use is generally not recommended concurrently with pain medications and/or other controlled substances due to increased risks of profound sedation, respiratory depression, coma, and even . They are not to be used with any alcohol, as this combination can also be lethal. Patient was provided caution 3. 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 Posttraumatic stress disorder -therapy JACQUELIN 5. 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 major depression - Prozac 60 mg daily Wellbutrin SR 200 mg twice a day obtain labs PCP educated on all medications, benefits, side effects and risk, and educated on depression, anxiety, and ADHD, mood d/o and educated on compliance of medications, metabolic and movement d/o education, appointment's, continue therapy discussion with patient about course of treatment and patient instructions. SSRI side effects discussed including but not limited to, gastric upset, nausea, vomiting, diarrhea and/or constipation, weight changes, sexual side effects including loss of libido, increased suicidal thoughts/behavi ors in children and young adults, and serotonin syndrome. patient educated on importance of prevention care. labs, PAP, mammograms, colonoscopy ect 2. Generalized anxiety disorder -Lorazepam 0.5 mg three times a day as needed Discussed and educated pt regarding benzodiazepines are generally not intended for prolonged use and that use can cause tolerance, dependence, depression, and associated memory issues including dementias (this list is not exhaustive). Benzodiazepine use is generally not recommended concurrently with pain medications and/or other controlled substances due to increased risks of profound sedation, respiratory depression, coma, and even . They are not to be used with any alcohol, as this combination can also be lethal. Patient was provided caution 3. 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 Posttraumatic stress disorder -therapy JACQUELIN 5. 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 major depression - Prozac 60 mg daily Wellbutrin SR 200 mg twice a day obtain labs PCP educated on all medications, benefits, side effects and risk, and educated on depression, anxiety, and ADHD, mood d/o and educated on compliance of medications, metabolic and movement d/o education, appointment's, continue therapy discussion with patient about course of treatment and patient instructions. SSRI side effects discussed including but not limited to, gastric upset, nausea, vomiting, diarrhea and/or constipation, weight changes, sexual side effects including loss of libido, increased suicidal thoughts/behavi ors in children and young adults, and serotonin syndrome. patient educated on importance of prevention care. labs, PAP, mammograms, colonoscopy ect 2. Generalized anxiety disorder -Lorazepam 0.5 mg three times a day as needed- Discussed and educated pt regarding benzodiazepines are generally not intended for prolonged use and that use can cause tolerance, dependence, depression, and associated memory issues including dementias (this list is not exhaustive). Benzodiazepine use is generally not recommended concurrently with pain medications and/or other controlled substances due to increased risks of profound sedation, respiratory depression, coma, and even . They are not to be used with any alcohol, as this combination can also be lethal. Patient was provided caution 3. 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 Posttraumatic stress disorder -therapy JACQUELIN 5. 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 major depression - Prozac 60 mg daily Wellbutrin SR 200 mg twice a day obtain labs PCP educated on all medications, benefits, side effects and risk, and educated on depression, anxiety, and ADHD, mood d/o and educated on compliance of medications, metabolic and movement d/o education, appointment's, continue therapy discussion with patient about course of treatment and patient instructions. SSRI side effects discussed including but not limited to, gastric upset, nausea, vomiting, diarrhea and/or constipation, weight changes, sexual side effects including loss of libido, increased suicidal thoughts/behavi ors in children and young adults, and serotonin syndrome. patient educated on importance of prevention care. labs, PAP, mammograms, colonoscopy ect 2. Generalized anxiety disorder -Lorazepam 0.5 mg three times a day as needed- Discussed and educated pt regarding benzodiazepines are generally not intended for prolonged use and that use can cause tolerance, dependence, depression, and associated memory issues including dementias (this list is not exhaustive). Benzodiazepine use is generally not recommended concurrently with pain medications and/or other controlled substances due to increased risks of profound sedation, respiratory depression, coma, and even . They are not to be used with any alcohol, as this combination can also be lethal. Patient was provided caution 3. 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 Posttraumatic stress disorder -therapy JACQUELIN 5. 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 major depression - Prozac 60 mg daily Wellbutrin SR 200 mg twice a day obtain labs PCP educated on all medications, benefits, side effects and risk, and educated on depression, anxiety, and ADHD, mood d/o and educated on compliance of medications, metabolic and movement d/o education, appointment's, continue therapy discussion with patient about course of treatment and patient instructions. SSRI side effects discussed including but not limited to, gastric upset, nausea, vomiting, diarrhea and/or constipation, weight changes, sexual side effects including loss of libido, increased suicidal thoughts/behavi ors in children and young adults, and serotonin syndrome. patient educated on importance of prevention care. labs, PAP, mammograms, colonoscopy ect 2. Generalized anxiety disorder -Lorazepam 0.5 mg three times a day as needed Discussed and educated pt regarding benzodiazepines are generally not intended for prolonged use and that use can cause tolerance, dependence, depression, and associated memory issues including dementias (this list is not exhaustive). Benzodiazepine use is generally not recommended concurrently with pain medications and/or other controlled substances due to increased risks of profound sedation, respiratory depression, coma, and even . They are not to be used with any alcohol, as this combination can also be lethal. Patient was provided caution 3. 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 Posttraumatic stress disorder -therapy JACQUELIN 5. Long-term current use of drug therapy 03/01/2024 Other [facility] (current) drug therapy (ICD-10 - Z79.899) Medication Refill: Care Instructions material was published 1. Mild recurrent major depression - Prozac 60 mg daily Wellbutrin SR 200 mg twice a day obtain labs PCP educated on all medications, benefits, side effects and risk, and educated on depression, anxiety, and ADHD, mood d/o and educated on compliance of medications, metabolic and movement d/o education, appointment's, continue therapy discussion with patient about course of treatment and patient instructions. SSRI side effects discussed including but not limited to, gastric upset, nausea, vomiting, diarrhea and/or constipation, weight changes, sexual side effects including loss of libido, increased suicidal thoughts/behavi ors in children and young adults, and serotonin syndrome. patient educated on importance of prevention care. labs, PAP, mammograms, colonoscopy ect 2. Generalized anxiety disorder -Lorazepam 0.5 mg three times a day as needed Discussed and educated pt regarding benzodiazepines are generally not intended for prolonged use and that use can cause tolerance, dependence, depression, and associated memory issues including dementias (this list is not exhaustive). Benzodiazepine use is generally not recommended concurrently with pain medications and/or other controlled substances due to increased risks of profound sedation, respiratory depression, coma, and even . They are not to be used with any alcohol, as this combination can also be lethal. Patient was provided caution 3. 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 Posttraumatic stress disorder -therapy JACQUELIN 5. Long-term current use of drug therapy 09/21/2024 Encounter for screening for cardiovascular disorders (ICD-10 - Z13.6) 1. major depression - Prozac 60 mg daily Wellbutrin SR 200 mg twice a day obtain labs PCP educated on all medications, benefits, side effects and risk, and educated on depression, anxiety, and ADHD, mood d/o and educated on compliance of medications, metabolic and movement d/o education, appointment's, continue therapy discussion with patient about course of treatment and patient instructions. SSRI side effects discussed including but not limited to, gastric upset, nausea, vomiting, diarrhea and/or constipation, weight changes, sexual side effects including loss of libido, increased suicidal thoughts/behavi ors in children and young adults, and serotonin syndrome. patient educated on importance of prevention care. labs, PAP, mammograms, colonoscopy ect 2. Generalized anxiety disorder -Lorazepam 0.5 mg three times a day as needed- Discussed and educated pt regarding benzodiazepines are generally not intended for prolonged use and that use can cause tolerance, dependence, depression, and associated memory issues including dementias (this list is not exhaustive). Benzodiazepine use is generally not recommended concurrently with pain medications and/or other controlled substances due to increased risks of profound sedation, respiratory depression, coma, and even . They are not to be used with any alcohol, as this combination can also be lethal. Patient was provided caution 3. 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 Posttraumatic stress disorder -therapy JACQUELIN 5. Long-term current use of drug therapy 09/06/2024 Other Generalized Anxiety Disorder with Panic-like Symptoms and Agoraphobia - Assessment: Alberto reports experiencing daily anxiety, particularly in the evening, with symptoms mimicking a heart attack. This severe anxiety has led to significant agoraphobia, severely limiting her ability to leave her house. She occasionally attends doctor's appointments and ventures out with her sister or daughter, but struggles with most outings. The intensity and frequency of these symptoms, along with their impact on her daily functioning, suggest a diagnosis of Generalized Anxiety Disorder with panic-like symptoms and agoraphobic features. - Plan: - Consider initiating EMDR therapy to address anxiety and possible trauma - Schedule bi-weekly counseling appointments - Explore and address agoraphobic symptoms in future sessions - Discuss potential medication options for anxiety management at next appointment Chronic Pain Management - Assessment: Alberto reports a typical daily pain level of 8 out of 10, indicating poorly controlled chronic pain related to her rheumatoid arthritis and lupus. She recently changed rheumatologists, and her numbers have significantly improved from 94 to 14. Despite this improvement in objective measures, Alberto continues to experience severe pain. - Plan: - Coordinate care with new obstetrics gyn physician to ensure comprehensive pain management - Explore non-pharmacologic al pain management techniques in future sessions - Assess impact of chronic pain on mental health and daily functioning Low Self-esteem and Feelings of Inadequacy - Assessment: Alberto expresses feelings of inadequacy, stating, compared to other people my age, I haven't accomplished anything in my life. This sentiment suggests low self-esteem and possible depression. These feelings may be exacerbated by her chronic health conditions, limited mobility, and difficulty engaging in activities outside the home. - Plan: - Implement cognitive-behavio ral techniques to address negative self-perception - Explore and challenge cognitive distortions related to self-worth and accomplishments - Develop strategies to improve self-esteem and sense of purpose within current limitations Codependent Relationships - Assessment: Alberto is noted to have codependent relationships with both her sister and her teenage daughter. This dynamic may be reinforcing her anxiety and agoraphobia, as she relies heavily on these family members for support and companionship when venturing outside the home. - Plan: - Assess the extent and impact of codependent relationships in future sessions - Develop strategies to promote healthy boundaries and independence - Consider family therapy to address relationship dynamics 10/23/2024 Other Anxiety and Panic Attacks - Assessment: Alberto reports experiencing severe anxiety and panic attacks over the past two weeks. Symptoms include feeling like having a non-stop heart attack, inability to get out of bed, and being awake for only about 4 hours a day. The onset appears to be triggered by a specific event, possibly related to a friend's potential surgery. Alberto has a history of medical anxiety and tends to obsess over health-related issues. No history of psychiatric hospitalizations or suicide attempts. Current medications include Prozac. - Plan: - Continue current medication regimen, including Prozac (dose not specified) - Explore and address triggers for anxiety, particularly health-related concerns - Discuss and implement stress-reduction techniques - Monitor for improvement in anxiety symptoms and sleep patterns 11/07/2024 Other Interpersonal Relationship Difficulties and Low Self-Esteem - Assessment: Alberto reports a pattern of allowing others, including her sister and ex-boyfriend, to treat her disrespectfully. This behavior appears to be negatively impacting her self-esteem, as she reports feeling lazy and bad about herself when subjected to such treatment. There are indications that this pattern may be intergenerational , as Alberto's daughter, who was present during the session, is reportedly exhibiting similar behaviors of allowing negative treatment from others. - Plan: - Provide ongoing support to address interpersonal relationship issues and improve self-esteem. - Explore and challenge negative self-perceptions related to disrespectful treatment from others. - Develop strategies to establish and maintain healthy boundaries in relationships. - Address intergenerational patterns of accepting disrespectful treatment, involving Alberto's daughter in future sessions as appropriate. Plan Of Treatment Next Appt Details Provider Name:Yvette Young, 12/05/2024 03:00:00 PM, [address], [address], [place], [address], Provider Name:Amy Ribeiro , 12/20/2024 01:00:00 PM, [address], [address], [place], [address], Provider Name:Yvette trent Hector, 12/26/2024 09:00:00 AM, [address], [facility] [address], [place], [address], Provider Name:Yvette Young, 01/09/2025 03:00:00 PM, [address], [facility] [address], [place], [address], Insurance Providers Payer Name Payer Address Payer Phone Subscriber Number Group Number Insured Name Patient Relationship to Insured Coverage Start Date Coverage End Date Medicare-I l Medicare [address] [place] [address] [id number] ALBERTO GONZALES Self - patient is the insured Medicaid-I l Medicaid [address] [address] [place] [address] [id number] ALBERTO GONZALES Self - patient is the insured Medical (General) History Medical History History ICD Code Problems: Generalized anxiety disorder Illness anxiety disorder Insomnia disorder related to another men lan disorder Long-term current use of drug therapy Mild recurrent major depression Moderate recurrent major depression Narcolepsy Normal grief reaction Posttraumatic stress disorder Social phobia , Anxiety Disorder: Y Depressi on Major: Y Panic Episodes: Y PTSD: Y Headaches: Y Headaches Migraines: Y Hypertension: Y Obesity: Y Notes: Lupus, Narcolepsy, Past Psychiatric History: An xiety Disorder,Panic Disorder,Phobias,PTSD,Major Depressive Episode undefined abdominal aortic aneurysm: No atrial fibrillation: Yes chronic fatigue syndrome: Yes essential tremor: No hyperlipidemia: No hypertension: Yes Parkinson's disease: No restless leg syndrome: No stroke: No subdural hematoma: No type 1 diabetes mellitus: No type 2 diabetes mellitus: No vitamin B12 deficiency: No vitamin D deficiency: Yes Surgical History Surgery Date(Month/Year) Other 12/17/2006
--- OUTSIDE RECORDS SUMMARY | 2024-11-27 16:10 | XMS_ITS ---
Author Organization [facility] [employer] [facility] Address [address] [facility] [address] [place] [address] Care Team Providers Care Protective Officer Name Role Phone Amy Ribeiro Unavailable [phone] Yvette Starkey Unavailable [phone] REASON FOR VISIT Patient rescheduled due to being sick and was not removed for today Social History Sex Assigned At : Social History Observation Description Sex Assigned At Female Encounters Encounter Location Date Provider Diagnosis [facility] [employer] [place] [address] [address] 11/21/2024 Yvette Hunt Plan Of Treatment Next Appt Details Provider Name:Yvette Hunt, 12/05/2024 03:00:00 PM, [facility] [address], [address], [address], Provider Name:Amy Ribeiro , 12/20/2024 01:00:00 PM, [facility], [address], [address], Provider Name:Yvette Hunt, 12/26/2024 09:00:00 AM, [facility] [address], [address], Provider Name:Yvette Hunt, 01/09/2025 03:00:00 PM, [address], [address], [address], Progress Notes * VIC GONZALES LDOB:1985 (39 yo F)Acc No.[id number]:11/21/2024 Patient: VIC AMAYA Provider: Ciara HUNT LCSW :1985 A ge:39 Y S ex:Female Date:11/21/2024 Address:[facility] [address], [address] Data: * Chief Complaints: * 1 . Patient rescheduled due to being sick and was not removed for today. Assessment: Plan: * Treatment: * Billing Information: * Visit Code: * Procedure Codes: * Electronic signature of Eveline Hunt LCSW on 11/27/2024 at 04:09 PM CDT Sign off status: Pending Signatures: No Ad Hoc Signature Added * Provider: Ciara HUNT LCSW Date: 0 11/21/2024 Generated for Maddi mathew/Mabel/Patti on: 11/27/2024 04:09 PM CDT
--- OUTSIDE RECORDS SUMMARY | 2024-11-27 16:10 | XMS_ITS | Clinical Summary ---
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 Name Role Phone Alisha Lal NP Primary Care Provider [phone] Allergies No known active allergies Medications LORazepam (ATIVAN) 0.5 mg tablet Take 1 tablet (0.5 mg total) by mouth every 6 (six) hours as needed for anxiety Active FLUoxetine (PROzac) 20 mg capsule TK 1 C PO QD IN THE MORNING 02/07/20 20 Active triamcinolone (KENALOG) 0.1 % paste Apply small amount to affected areas of gum tissue twice daily 5 g 1 09/27/19 21 Active Additional Information Patient not taking.Reported on 07/05/2024 hydrocortisone (ANUSOL-HC) 2.5 % rectal cream Insert into the rectum 2 (two) times a day Please give applicator!!!!!! Insert 1 applicatorful nightly per rectum when hemorrhoids are problematic. 30 g 3 09/04/19 22 Active chlorhexidine (PERIDEX) 0.12 % solution RINSE AND GARGLE 15 ML BY MOUTH TO AFFECTED MUCOSAL AREA TWICE DAILY 08/06/19 23 Active cyclobenzaprine (FLEXERIL) 5 mg tablet cyclobenzaprine 5 mg tablet TAKE 1 TABLET BY MOUTH EVERY 12 HOURS NEEDED FOR MUSCLE SPASM Active nitroglycerin (NITROSTAT) 0.[address] 1 tablet (0.4 mg total) under the tongue every 5 (five) minutes as needed for chest pain May repeat dose q 5 min, up to 3 doses total 90 tablet 3 02/25/20 23 Active Additional Information Patient not taking.Reported on 03/20/2024 amLODIPine (NORVASC) 5 mg tablet Take 1 tablet (5 mg total) by mouth 2 (two) times a day 60 tablet 11 06/10/19 24 Active metoprolol tartrate (LOPRESSOR) 25 mg immediate release tablet TAKE 2 TABLETS BY MOUTH EVERY MORNING, THEN 1 TABLET DAILY IN THE EVENING 90 tablet 3 09/20/19 24 Active Additional Information Patient taking differently: 25 mg oral 2 times daily, bid, Reported on 07/05/2024 hydroxychloroquin e (PLAQUENIL) 200 mg tabletIndications :Systemic Lupus Erythematosus Take 2 tablets (400 mg total) by mouth daily 180 tablet 1 07/05/19 25 025 Active Active Problems Problem Noted Date Diagnosed Date Ocular migraine 10/14/2022 Assessment & Plan (10/14/2022 12:54 PM CDT): No headaches that follow, but history of migraines in the past. Symptoms most consistent with migraine etiology. Educated to alert PCP Palpitations 09/18/2021 Anxiety 09/18/2021 Internal bleeding hemorrhoids 09/03/2021 BMI 33.0-33.9,adult 09/03/2021 BRBPR (bright red blood per rectum) 09/03/2021 Tubular adenoma 09/03/2021 Family history of colon cancer 09/03/2021 Long-term use of Plaquenil 03/11/2021 Assessment & Plan (10/19/2023 1:04 PM CDT): Stable without evidence of macular toxicity (DFE, OCT and Duran visual field (HVF) performed). Monitory yearly Assessment & Plan (10/14/2022 12:52 PM CDT): No evidence of Plaquenil toxicity with Duran visual field (HVF), OCT or dilated exam. Educated on findings and stressed yearly evals if planning to start on Plaquenil again. Assessment & Plan (03/11/2021 12:52 PM CDT): History of intermittent Plaquenil use for 5 years, consistently over past two years at 200mg BID PO. No evidence of macular toxicity in either eye, no saucer sign or PIL disruption on OCT MAC in either eye, no Bulls Eye scotoma in either eye with Duran visual field (HVF) 10-2. Educated on lack of findings, and no complications related to Plaquenil use noted today. Will fax note to PCP Pain around eye 03/11/2021 Assessment & Plan (03/11/2021 12:56 PM CDT): Previous pain ~6 weeks ago. No evidence of angle closure, intraocular pressure (IOP) normotensive, ONH with distinct margins, no cells or flare. Educated to return same day if symptoms recur. Educated pressure or eye strain can occur in patient's that are farsighted that do not wear specs while reading. Educated on possible benefit of wearing specs more often. Can continue Blink tears PRN for dryness. Will monitor closely. 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 She says she really isn't having nausea or indigestion anymore on this medication. Continue this medication. Assessment & Plan (11/23/2019 2:29 PM CDT): Pt c/o sour stomach on almost daily basis. She said she often has reflux as well. She does not take anything for her stomach. Will start on pantoprazole 40mg daily. Grade II hemorrhoids 11/23/2019 Assessment & Plan (01/04/2020 10:32 AM CDT): Pt says they are still there but have improved and not bothersome. She continues to use Anusol cream on them. Denies any bleeding. Start on fiber gummies daily. Can use Anusol cream prn. Assessment & Plan (11/23/2019 2:38 PM CDT): Upon exam. Patient noted to have grade II ext/int hemorrhoids. Will give her anusol cream to use for a few weeks. If no improvement, we can consider sig flex with IRC and banding. 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 Pt says pain is up under my ribs. Pain is not that bad but noticed that this began shortly after last appt. Will order CT with contrast. Irritable bowel syndrome with constipation 09/26 Assessment & Plan (01/04/2020 10:31 AM CDT): Doing well overall on Linzess 290mcg. She says she is doing Miralax prn. She did notice that she has better BM's when she eats better and incorporates more fiber into diet. She does get occasional discomfort in RUQ sometimes that she says is a mild cramping. Likely related to gas as we have done colonoscopy and CT in the past with unremarkable findings. She was told to avoid carbonated beverages (she says she has a soda about every other day). Continue Linzess 290mcg and start fiber gummies daily. You can still use Miralax prn. Assessment & Plan (11/23/2019 2:28 PM CDT): Taking Linzess 290mcg daily. Was working well previously but recently having to use suppositories and enemas along with this. Pt says she is having lower abdominal cramping as well. Her appetite has not been very good since the constipation worsened and had episode of N/V 2 days ago. Pt says she is not really passing gas. She had a very small BM yesterday but prior to this, no BM for about 1.5 weeks. Will get obstructive series. Pt advised to continue Linzess 290mcg and add 1-2 doses of Miralax. She may also use dulcolax suppository as need if the Linzess plus Miralax does not work. Pt advised to call or go to ER if symptoms worsen and is not having BM. She verbalized understanding. Assessment & Plan (02/08/2019 10:17 AM CDT): Doing well with prn use of linzess. Assessment & Plan (12/18/2018 4:29 PM CDT): Currently on Linzess 290 mcg and helps her have BM almost everyday. Denies blood in stool. Assessment & Plan (09/26/2018 4:20 PM CDT): This is a chronic issue and no worrisome signs at this time. Continue Linzess 290 macro g per day as she has been doing for years. Arthralgia of multiple joints 09/02/2014 Pain in shoulder 04/26/2014 Muscle soreness 04/26/2014 Spasm 12/25/2013 Headache 03/26/2013 Overview (08/12/2016): Headache Narcolepsy 02/01/2013 Overview (08/12/2016): Narcolepsy Fatigue 12/18/2012 Snoring 08/24/2012 Overview (08/11/2016): Snoring Hypersomnia 08/24/2012 Overview (08/12/2016): Hypersomnia Class 1 obesity due to exces s calories without serious comorbidity with body mass index (BMI) of 31.0 to 31.9 in adult 08/24/2012 Overview (08/12/2016): Obesity Hematochezia 11/13/2010 Sjogren's syndrome 09/07/2010 Resolved Problems Problem Noted Date Diagnosed Date Resolved Date Nausea and vomiting 12/18/2018 01/04/20 20 Assessment & Plan (11/23/2019 2:29 PM CDT): Had an episode of N/V 2 days ago with this constipation. Will get obstructive series. Assessment & Plan (02/08/2019 10:16 AM CDT): Pt recently changed diet and taking famotidine daily. This has resolved. Assessment & Plan (12/18/2018 4:29 PM CDT): Will schedule for EGD with Dr. Amin. She can continue famotidine. Dysphagia 09/21/2018 01/04/2020 Overview (09/21/2018): Added automatically from request for surgery [id number] Assessment & Plan (12/18/2018 4:29 PM CDT): Schedule for EGD with Dr. Amin Assessment & Plan (09/26/2018 4:16 PM CDT): The dysphagia slowly progressive. No worrisome signs. It could be secondary to her rheumatic disease and Sjogren syndrome and lupus. We will schedule upper endoscopy. Continue Pepcid for the time being. Follow-up upper endoscopy as needed and depending on the findings. Encounters Date Type Department Care Team Description 08/31/2024 Results Follow-Up [facility] [address] 5th [place] [address] [place] [address] Sharee Vargas MD Anti-double stranded DNA abs, Urinalysis reflex to microscopic, Comprehensive metabolic panel, Additional followed-up results: 8 08/29/2024 2:15 PM CDT Lab [address] [address] Systemic lupus erythematosus, organ or system involvement unspecified (HCC) from Last 3 Months Surgical History Surgery Date Site/Laterality Comments OTHER SURGICAL HISTORY sjogrens disease SECTION COLONOSCOPY 02/06/2017 - 03/08/2017 Medical History Medical History Date Comments Hx Other Medical Headache, migra ine Hypertension Hypertension Hx Other Medical c section GERD (gastroesophageal reflux disease) Dysphagia Lupus Sjogren's syndrome Narcolepsy Nausea and vomiting 12/18/2018 Ventricular tachycardia (HCC) Supraventricular tachycardia Chest pain Shortness of breath Colon polyp Family History Medical History Relation Name Comments Heart attack Father Myocardial infa rction; Migraines Father Migraine; Colon cancer Maternal Grandmother Cancer Mother Cancer; Hypertension Mother Hypertension; Stroke Mother Stroke; Other Other Family history of lupus - mother; Relation Name Status Comments Father Maternal Grandmother (Age 58) Mother Other Social History Tobacco Use Types Packs/Day Years Used Date Smoking Tobacco: Former Cigarettes 0.3 5 0 09/06/2014 - 09/07/2019 Smokeless Tobacco: Never Tobacco Cessation:Counseling Given: Not Answered Alcohol Use Standard Drinks/Week Comments No 0 (1 standard drink = 0.6 oz pur e alcohol) Social Connection and Isolation Panel [NHANES] A nswer Date Recorded In a typical week, how many times do you talk on the phone with family, friends, or neighbors? Once a week 03/20/2024 How often do you get together with friends or re latives? Never 03/20/2024 How often do you attend restoration or sabianist serv ices? Never 03/20/2024 Do you belong to any clubs o r organizations such as restoration groups, unions, fraternal or athletic groups, or school groups? No 03/20/2024 How often do you attend meet ings of the clubs or organizations you belong to? Not asked 03/20/2024 Are you , , di vorced, , never , or living with a partner? Never 03/20/2024 Overall Financial Resource Strain (CARDIA) Answe r Date Recorded How hard is it for you to pa y for the very basics like food, housing, medical care, and heating? Somewhat hard 03/20/2024 PHQ-2 Answer Date Recorded Patient Health Questionnaire-2 Score 2 03/20/2024 [place] [facility] [employer] - Occupational Stress Questionnaire Answer Date Recorded Do you feel stress - tense, restless, nervous, or anxious, or unable to sleep at night because your mind is troubled all the time - these days? To some extent 03/20/2024 Exercise Vital Sign Answer Date Recorde d On average, how many days pe r week do you engage in moderate to strenuous exercise (like a brisk walk)? 3 days 03/20/2024 On average, how many minutes do you engage in exercise at this level? 40 min 03/20/2024 Hunger Vital Sign Answer Date Recorded Within the past 12 months, y ou worried that your food would run out before you got the money to buy more. Sometimes true Within the past 12 months, t he food you bought just didn't last and you didn't have money to get more. Sometimes true 04/2024 PRAPARE - Transportation Answer Date Re corded In the past 12 months, has l ack of transportation kept you from medical appointments or from getting medications? No 03/09 In the past 12 months, has l ack of transportation kept you from meetings, work, or from getting things needed for daily living? No 03/20/2024 Housing Stability Vital Sign Answer Meng e Recorded In the last 12 months, was t here a time when you were not able to pay the mortgage or rent on time? No 03/20/2024 Number of Times Moved in the Last Year Not on fi le 03/20/2024 Homeless in the Last Year Not on file 2023 Comments No Sex and Gender Information Value Date Recorded Sex Assigned at Not on file Legal Sex Female 1:54 AM WOOD STAINER Gender Identity Not on file Sexual Orientation Not on file Obstetrics History Last Filed Vital Signs Vital Sign Reading Time Taken Comments Blood Pressure 125/78 07/05/2024 3:49 PM WOOD STAINER Pulse 77 07/05/2024 3:49 PM WOOD STAINER Temperature 36.9 C (98.4 F) 07/05/2024 3:49 PM WOOD STAINER Respiratory Rate 18 12/17/2022 9:53 AM CDT Oxygen Saturation 97% 03/20/2024 1:58 PM WOOD STAINER Inhaled Oxygen Concentration - - Weight 107.3 kg (236 lb 9.6 oz) 07/05/2024 3:49 PM WOOD STAINER Height 165.1 cm (5' 5) 07/05/2024 3:49 PM WOOD STAINER Body Mass Index 39.37 07/05/2024 3:49 PM WOOD STAINER Plan of Treatment Health Maintenance Due Date Last Done Comments Breast Cancer Screening-Mammogram 1984 Cervical Cancer Screening 1984 Varicella Vaccines (1 of 2 - 13+ 2-dose series) 1997 Hepatitis B Screening 2002 Regular Well Visit/Exam 18-64 2002 Pneumococcal vaccine <65 (1 of 2 - PCV) 2003 Zoster Vaccine (1 of 2) 2003 Influenza Vaccine (#1) 2025 8, 03/17/2017, 03/12/2016 Depression Screening 03/20/2025 03/20/2024, 02/08/2019, 02/08/2019 DTaP/Tdap/Td Vaccine (2 - Td or Tdap) 11/11/2026 11/11/2016, 05/09/2006 Hepatitis C Screening Completed 10/13/2018 , 09/06/2016 HPV Vaccines Aged Out No longer eligi ble based on patient's age to complete this topic Procedures Procedure Name Priority Date/Time Associated Diagnosis Comments EGFR Routine 08/29/2024 2:17 PM CDT Systemic lupus erythematosus, organ or system involvement unspecified (HCC) DIFFERENTIAL AUTO Routine 08/29/2024 2:1 7 PM CDT Systemic lupus erythematosus, organ or system involvement unspecified (HCC) C3 COMPLEMENT Routine 08/29/2024 2:17 PM CDT Systemic lupus erythematosus, organ or system involvement unspecified (HCC) C4 COMPLEMENT Routine 08/29/2024 2:17 PM CDT Systemic lupus erythematosus, organ or system involvement unspecified (HCC) CRP (ACUTE PHASE) Routine 08/29/2024 2:1 7 PM CDT Systemic lupus erythematosus, organ or system involvement unspecified (HCC) ERYTHROCYTE SEDIMENTATION RATE Routine 08/29/2024 2:17 PM CDT Systemic lupus erythematosus, organ or system involvement unspecified (HCC) PROTEIN / CREATININE RATIO, URINE, RANDOM Routine 08/29/2024 2:17 PM CDT Systemic lupus erythematosus, organ or system involvement unspecified (HCC) CBC WITH AUTO DIFFERENTIAL Routine 08/29/2024 2:17 PM CDT Systemic lupus erythematosus, organ or system involvement unspecified (HCC) COMPREHENSIVE METABOLIC PANEL Routine 08/29/2024 2:17 PM CDT Systemic lupus erythematosus, organ or system involvement unspecified (HCC) URINALYSIS AND REFLEX TO MICROSCOPIC Routine 08/29/2024 2:17 PM CDT Systemic lupus erythematosus, organ or system involvement unspecified (HCC) ANTI-DOUBLE STRANDED DNA ANTIBODIES Routine 08/29/2024 2:17 PM CDT Systemic lupus erythematosus, organ or system involvement unspecified (HCC) HEPATITIS C ANTIBODY Routine 10/13/2018 2:02 PM CDT from Last 3 Months or Most Recently Relevant to Health Maintenance Results * (ABNORMAL) Anti-double stranded DNA abs (08/29/2024 2:17 PM CDT) dsDNA Ab 14.0(H) <=4.0 IUnits/mL Comment: Interpretive Data Negative: < or = 4 IUnits/mL Indeterminate: 5 - 9 IUnits/mL Positive: > or = 10 IUnits/mL Current interpretive data was last revised on 2016. Testing performed by: [facility], [address] [facility], [place]., [address] Blood 08/29/2024 2:17 PM CDT 08/29/2024 6:04 PM CDT us Sharee Vargas MD LAB BLOOD ORDERABLES Final Result [facility] ([place]) [address] [facility] [place] [address] * eGFR (08/29/2024 2:17 PM CDT) Pathologist [facility] eGFR 77 >=60 mL/min/1. 73 m2 Comment: Interpretive Data Reference Interval Normal >/= 90 mL/min/1.73m2 Mildly decreased* 60 - 89 mL/min/1.73m2 Mildly to moderately decreased 45 - 59 mL/min/1.73m2 Moderately to severely decreased 30 - 44 mL/min/1.73m2 Severely decreased 15 - 29 mL/min/1.73m2 Kidney Failure < 15 mL/min/1.73m2 *Relative to young adult level Estimated glomerular filtration rate is determined by the 2020 CKD-EPI equation recommended by the National Kidney Foundation (A Unifying Approach to GFR Estimation: Recommendations of the NKF-ASK Task Force on Reassessing the Inclusion of Race in Diagnosing Kidney Disease, JASN 2020). The CKD-EPI equation should not be used for patients with unstable renal function and has not been validated in children and those over 70. Current interpretive data was last reviewed 2021. Blood 08/29/2024 2:17 PM CDT 08/29/2024 2:53 PM CDT us Sharee Vargas MD LAB BLOOD ORDERABLES Final Result [facility] ([place]) 1 [facility] [place] [address] * (ABNORMAL) Differential, auto (08/29/2024 2:17 PM CDT) Neutrophil abs 3.89 1.50 - 6.50 K/cumm Imm gran abs 0.03 0.00 - 0.10 K/cumm [facility] ([place]) Lymphocyte abs 3.51(H) 0.80 - 3.30 K/cumm [facility] ([place]) Monocyte abs 0.53 0.20 - 0.80 K/cumm [facility] ([place]) Eosinophil abs 0.27 0.00 - 0.50 K/cumm [facility] ([place]) Basophil abs 0.07 0.00 - 0.10 K/cumm [facility] ([place]) Neutrophil pct 46.8 % [facility] ([place]) Comment: Interpretive Data Percent cell count reference ranges are not reported, since discordance with absolute values may lead to misinterpretation of CBC data. Current Interpretive Data was last revised on 2017. Imm gran pct 0.4 % [facility] ([place]) Comment: Interpretive Data Percent cell count reference ranges are not reported, since discordance with absolute values may lead to misinterpretation of CBC data. Current Interpretive Data was last revised on 2017. Lymphocyte pct 42.3 % [facility] ([place]) Comment: Interpretive Data Percent cell count reference ranges are not reported, since discordance with absolute values may lead to misinterpretation of CBC data. Current Interpretive Data was last revised on 2017. Monocyte pct 6.4 % [facility] ([place]) Comment: Interpretive Data Percent cell count reference ranges are not reported, since discordance with absolute values may lead to misinterpretation of CBC data. Current Interpretive Data was last revised on 2017. Eosinophil pct 3.3 % [facility] ([place]) Comment: Interpretive Data Percent cell count reference ranges are not reported, since discordance with absolute values may lead to misinterpretation of CBC data. Current Interpretive Data was last revised on 2017. Basophil pct 0.8 % [facility] ([place]) Comment: Interpretive Data Percent cell count reference ranges are not reported, since discordance with absolute values may lead to misinterpretation of CBC data. Current Interpretive Data was last revised on 2017. Blood 08/29/2024 2:17 PM CDT 08/29/2024 2:53 PM CDT us Sharee Vargas MD LAB BLOOD ORDERABLES Final Result [facility] ([place]) [address] [facility] [place] [address] * C4 complement (08/29/2024 2:17 PM CDT) Complement C4 36 10 - 40 mg/dL Comment:Testing performed by : [facility], [address] [place] [address], [place]., [address] Blood 08/29/2024 2:17 PM CDT 08/29/2024 5:59 PM CDT Sharee Vargas MD LAB BLOOD ORDERABLES Final Result [facility] ([place]) [address] [facility] [place] [address] * Urinalysis reflex to microscopic (08/29/2024 2:17 PM CDT) Color, ur Yellow Yellow Clarity, ur Clear Clear [facility] ([place]) Specific gravity, ur 1.024 1.003 - 1.030 [facility] ([place]) pH, urine 5.5 [facility] ([place]) Comment: Interpretive Data U rine pH is affected by diet, medications, systemic acid-base disturbances, and renal tubular function. pH may affect urinary stone formation. For example, urine pH below 6.0 may help reduce the tendency for calcium phosphate stones and pH greater than 6.0 may reduce the tendency for uric acid stone formation. Source: [facility] Current Interpretive Data was last revised on 2017 Protein, ur ql Trace Negative [facility] ([place]) Glucose, ur ql Negative Negative [facility] ([place]) Ketones, ur Negative Negative [facility] ([place]) Bilirubin, ur Negative Negative [facility] ([place]) Blood, ur Negative Negative [facility] ([place]) Urobilinogen, ur <2.0 <2.0 mg/dL [facility] ([place]) Nitrite, ur Negative Negative [facility] ([place]) Leukocyte esterase, ur Negative Negative [facility] ([place]) UA reflex comment Reflex conditions for microscopic UA not met. [facility] ([place]) Urine 08/29/2024 2:17 PM CDT 08/29/2024 2:54 PM CDT us Sharee Vargas MD LAB URINE ORDERABLES Final Result [facility] ([place]) 1 [facility] [place] [address] * CBC with auto differential (08/29/2024 2:17 PM CDT) Pathologist [facility] WBC 8.30 3.80 - 9.90 K/cumm Hgb 13.5 11.9 - 15.5 g/dL [facility]) Hct 39.4 35.6 - 45.5 % [facility]) Plt 304 150 - 400 K/cumm [facility] ([place]) MPV 10.2 9.1 - 12.3 fL [facility]) RBC 4.40 3.90 - 5.20 M/cumm [facility]) MCV 89.5 81.3 - 96.4 fL [facility]) MCH 30.7 27.1 - 33.3 pg [facility]) MCHC 34.3 32.3 - 35.7 g/dL [facility]) RDW CV 11.9 11.1 - 14.9 % [facility]) RDW SD 37.9 35.7 - 48.1 fL [facility]) NRBC abs 0.00 0.00 - 0.01 K/cumm [facility] ([place]) Blood 08/29/2024 2:17 PM CDT 08/29/2024 2:53 PM CDT us Sharee Vargas MD LAB BLOOD ORDERABLES Final Result [facility] ([place]) 1 [facility] [place] [address] * Protein / creatinine ratio, urine, random (08/29/2024 2:17 PM CDT) Pathologist [facility] Protein, ur, quant 8.6 mg/dL Comment: Interpretive Data No reference range established. Current interpretive data was last revised 2018. Creatinine Ur 229.6 mg/dL [facility] ([place]) Comment: Interpretive Data No reference range established. Current interpretive data was last revised 2018. Protein/creatinin e ratio 37.5 0.0 - 180.0 mg/g CR [facility] ([place]) Urine 08/29/2024 2:17 PM CDT 08/29/2024 2:54 PM CDT Sharee Vargas MD LAB URINE ORDERABLES Final Result [facility] ([place]) 1 [facility] [place] [address] * (ABNORMAL) Erythrocyte sedimentation rate (08/29/2024 2:17 PM CDT) Erythrocyte sedimentation rate 25(H) 1 - 20 mm/hr Blood 08/29/2024 2:17 PM CDT 08/29/2024 2:53 PM CDT Sharee Vargas MD LAB BLOOD ORDERABLES Final Result Performing Organization Address [facility] Co de Phone Number [facility] ([place]) [address] [facility] [place] [address] * (ABNORMAL) C3 complement (08/29/2024 2:17 PM CDT) Complement C3 214(H) 90 - 180 mg/dL Comment:Testing performed by : [facility], [address] [place] [address]., [id number] Blood 08/29/2024 2:1 7 PM CDT 08/29/2024 5:59 PM CDT Sharee Vargas MD LAB BLOOD ORDERABLES Final Result Performing Organization Address City/[facility]/ZIP Co de Phone Number [facility] ([place]) [address] [facility] [place] [address] * CRP (acute phase) (08/29/2024 2:17 PM CDT) CRP 4.1 <=10.0 mg/L Blood 08/29/2024 2:17 PM CDT 08/29/2024 2:53 PM CDT Sharee Vargas MD LAB BLOOD ORDERABLES Final Result [facility] ([place]) 1 [facility] [place] [address] * Comprehensive metabolic panel (08/29/2024 2:17 PM CDT) Sodium 137 135 - 145 mmol/L Potassium, pl 4.0 3.3 - 4.9 mmol/L [facility] ([place]) Chloride 101 97 - 110 mmol/L [facility] ([place]) CO2 24 22 - 32 mmol/L [facility] ([place]) Anion gap 12 2 - 15 mmol/L [facility] ([place]) BUN 15 6 - 25 mg/dL [facility] ([place]) Creatinine 0.96 0.60 - 1.10 mg/dL [facility] ([place]) Glucose 133 70 - 199 mg/dL [facility] ([place]) Comment: Interpretive Data Fasting glucose >/= 126 mg/dl is diagnostic for diabetes. Fasting is defined as no caloric intake for at least 8 hours. Fasting glucose between 100 mg/dl to 125 mg/dl is diagnostic of prediabetes. In a patient with classic symptoms of hyperglycemia or hyperglycemic crisis, a random glucose >/= 200 mg/dl is diagnostic for diabetes. In the absence of unequivocal hyperglycemia, results should be confirmed by repeat testing. The classification and Diagnosis of Diabetes Diabetes Care 2021; 46: S19-S40. Current interpretive data was last revised 2022. Calcium 9.6 8.5 - 10.3 mg/dL [facility] ([place]) Bilirubin, total <0.2 0.1 - 1.2 mg/dL [facility] ([place]) Protein, pl 7.3 6.5 - 8.5 g/dL [facility] ([place]) Albumin 4.2 3.5 - 5.0 g/dL [facility] ([place]) Alk phos 61 40 - 130 Units/L [facility]) ALT 19 7 - 45 Units/L [facility] AST 19 10 - 45 Units/L [facility] ([place]) Blood 08/29/2024 2:17 PM CDT 08/29/2024 2:53 PM CDT us Sharee Vargas MD LAB BLOOD ORDERABLES Final Result [facility] ([place]) 1 [facility] [place] [address] * Hepatitis C antibody (10/13/2018 2:02 PM CDT) Hep C Ab Non-Reactiv e Non-Reactiv e [facility] Blood specimen (specimen) 10/13/2018 2:02 PM CDT 10/13/2018 4:07 PM CDT Narrative [facility] - 10/13/2018 6:55 PM CDT us Sarika Garg MD LAB MICROBIOLOGY - GENERAL ORDER JUAN DAVID Final Result Performing Organization Address City/[facility]/ZIP Co de Phone Number [facility] [address] [place] [address] from Last 3 Months or Most Recently Relevant to Health Maintenance Insurance MEDICARE IDPA MEDICARE [facility] Address: [address] [address] [place] MEDICARE IDPA Advance Directives For more information, please contact: [phone] * Full Code (Latest Code Status on File) Date Activated Date Inactivated Comments 12/28/2021 11:29 AM 12/28/2021 5:57 PM * Full Code Date Activated Date Inactivated Comments 12/28/2021 11:29 AM 12/28/2021 11:29 AM * Full Code Date Activated Date Inactivated Comments 01/09/2019 12:38 PM 01/09/2019 5:59 PM * Full Code Date Activated Date Inactivated Comments 01/09/2019 12:37 PM 01/09/2019 12:38 PM Care Teams Jet Blade Polisher Relationship Specialty Start Date End Date Alisha Lal NP [address] [place] [address] PCP - General Family Medicine 03/29/24
--- OUTSIDE RECORDS SUMMARY | 2024-11-27 16:10 | XMS_ITS | Referral Summary ---
Author Organization [facility] Address [address] [place] [address] Care Team Providers Care Tack Coverer Name Role Phone Gris Lalie Marlys GAMBOA Primary Care Provider [phone] Encounters Date Type Department Care Team Description 08/31/2024 Results Follow-Up [facility] Rheumatology [address] [place] [address] Advanced Medicine 5th [place] [address] [place] [id number] Sharee Vargas MD Anti-double stranded DNA abs, Urinalysis reflex to microscopic, Comprehensive metabolic panel, Additional followed-up results: 8 08/29/2024 2:15 PM CDT Lab [address] [address] Systemic lupus erythematosus, organ or system involvement unspecified (HCC) from Last 3 Months Allergies No known active allergies Medications LORazepam [...] 20 Assessment & Plan (06/06/2019 12:08 PM SENIOR ADMINISTRATIVE SERVICES OFFICER): Improved with Metoprolol 50mg BID RUQ pain [...] (09/21/2018): Added automatically from request for surgery [id number] Assessment & Plan (12/18/2018 4:29 PM CDT): Schedule for EGD with Dr. Amin Assessment & Plan (09/26/2018 4:16 PM CDT): The dysphagia slowly progressive. No worrisome signs. It could be secondary to her rheumatic disease and Sjogren syndrome and lupus. We will schedule upper endoscopy. Continue Pepcid for the time being. Follow-up upper endoscopy as needed and depending on the findings. Social History Tobacco Use Types Packs/Day Years [...] Never 03/20/2024 How often do you attend yazidism or taoism serv ices? Never 03/20/2024 Do you belong to any clubs o r organizations such as yazidism groups, unions, fraternal or athletic groups, or [...] Recorded Patient Health Questionnaire-2 Score 2 03/20/2024 [facility] - Occupational Stress Questionnaire Answer Date Recorded [...] on file Legal Sex Female 1:54 AM SENIOR ADMINISTRATIVE SERVICES OFFICER Gender Identity Not on file Sexual Orientation Not on file Last Filed Vital Signs Vital Sign Reading Time Taken Comments Blood Pressure 125/78 07/05/2024 3:49 PM SENIOR ADMINISTRATIVE SERVICES OFFICER Pulse 77 07/05/2024 3:49 PM SENIOR ADMINISTRATIVE SERVICES OFFICER Temperature 36.9 C (98.4 F) 07/05/2024 3:49 PM SENIOR ADMINISTRATIVE SERVICES OFFICER Respiratory Rate 18 12/17/2022 9:53 AM CDT Oxygen Saturation 97% 03/20/2024 1:58 PM SENIOR ADMINISTRATIVE SERVICES OFFICER Inhaled Oxygen Concentration - - Weight 107.3 kg (236 lb 9.6 oz) 07/05/2024 3:49 PM SENIOR ADMINISTRATIVE SERVICES OFFICER Height 165.1 cm (5' 5) 07/05/2024 3:49 PM SENIOR ADMINISTRATIVE SERVICES OFFICER Body Mass Index 39.37 07/05/2024 3:49 PM SENIOR ADMINISTRATIVE SERVICES OFFICER Plan of Treatment Not on file Procedures Procedure Name Priority Date/Time Associated Diagnosis [...] last revised on 2016. Testing performed by: [facility], [address] [place]., [address] Blood 08/29/2024 2:17 PM CDT 08/29/2024 6:04 PM CDT Sharee Vargas MD LAB BLOOD ORDERABLES Final Result [facility] ([place]) 1 [facility] [place] [address] * eGFR (08/29/2024 2:17 PM CDT) eGFR 77 >=60 mL/min/1. 73 m2 Comment: [...] of Race in Diagnosing Kidney Disease, JASN 202). The CKD-EPI equation should not be used for patients with unstable renal function and has not been validated in children and those over 70. Current interpretive data was last reviewed 2021. Blood 08/29/2024 2:17 PM CDT 08/29/2024 2:53 PM CDT us Sharee Vargas MD LAB BLOOD ORDERABLES Final Result [facility] ([place]) 1 [facility] Department of [employer] [place] [address] * (ABNORMAL) Differential, auto (08/29/2024 2:17 PM [...] BLOOD ORDERABLES Final Result Performing Organization Address City/[facility]/ZIP Co de Phone Number [facility] ([place]) [address] [place] [address] * C4 complement (08/29/2024 2:17 PM CDT) Complement C4 36 10 - 40 mg/dL Comment:Testing performed by : [facility], [address] [place] [address], [facility], [facility] Blood 08/29/2024 2:17 PM CDT 08/29/2024 5:59 PM CDT Sharee Vargas MD LAB BLOOD ORDERABLES Final Result Performing Organization Address [facility] Co de Phone Number [facility] ([place]) [address] [place] [address] * Urinalysis reflex to microscopic (08/29/2024 2:17 [...] tendency for uric acid stone formation. Source: [facility] [employer] Current Interpretive Data was last revised on [...] Vargas MD LAB URINE ORDERABLES Final Result [facility] 1 [facility] [place] [address] * CBC with auto differential (08/29/2024 2:17 PM CDT) WBC 8.30 3.80 - 9.90 K/cumm Hgb [...] LAB BLOOD ORDERABLES Final Result [facility] ([place]) 1 [facility] [employer] [place] [place] [address] * Protein / creatinine ratio, urine, random (08/29/2024 2:17 PM CDT) Protein, ur, quant 8.6 mg/dL Comment: Interpretive Data No reference range established. Current interpretive data was last revised 2018. Creatinine Ur 229.6 mg/dL [facility] ([place]) Comment: Interpretive Data No reference range established. Current interpretive data was last revised 2018. Protein/creatinin e ratio 37.5 0.0 - 180.0 mg/g CR [facility] ([place]) Urine 08/29/2024 2:17 PM CDT 08/29/2024 2:54 PM CDT Sharee Vargas MD LAB URINE ORDERABLES Final Result Performing Organization Address City/[facility]/ZIP Co de Phone Number [facility] ([place]) 1 [facility] [employer] [place] [place] [address] * (ABNORMAL) Erythrocyte sedimentation rate (08/29/2024 2:17 PM CDT) [facility] Erythrocyte sedimentation rate 25(H) 1 - 20 mm/hr Blood 08/29/2024 2:17 PM CDT 08/29/2024 2:53 PM CDT Sharee Vargas MD LAB BLOOD ORDERABLES Final Result [facility] ([place]) 1 [facility] [employer] [place] [place] [address] * (ABNORMAL) C3 complement (08/29/2024 2:17 PM CDT) Pathologist [facility] Complement C3 214(H) 90 - 180 mg/dL Comment:Testing performed by : [address], [place]., [address] Blood 08/29/2024 2:17 PM CDT 08/29/2024 5:59 PM CDT Sharee Vargas MD LAB BLOOD ORDERABLES Final Result [facility] ([place]) 1 [facility] [place] [address] * CRP (acute phase) (08/29/2024 2:17 PM CDT) Pathologist [facility] CRP 4.1 <=10.0 mg/L Blood 08/29/2024 2:17 PM CDT 08/29/2024 2:53 PM CDT Sharee Vargas MD LAB BLOOD ORDERABLES Final Result [facility] ([place]) 1 [facility] [employer] [place] [address] * Comprehensive metabolic panel (08/29/2024 2:17 PM CDT) Pathologist [facility] Sodium 137 135 - 145 mmol/L Potassium, pl 4.0 3.3 - 4.9 mmol/L [facility] Chloride 101 97 - 110 mmol/L [facility]) CO2 24 22 - 32 mmol/L [facility]) Anion gap 12 2 - 15 mmol/L [facility]) BUN 15 6 - 25 mg/dL [facility] ([place]) Creatinine 0.96 0.60 - 1.10 mg/dL [facility] ([place]) Glucose 133 70 - 199 mg/dL [facility] ([place] Comment: Interpretive Data Fasting glucose [...] classification and Diagnosis of Diabetes Diabetes Care 202; 46: S19-S40. Current interpretive data was last revised 2022. Calcium 9.6 8.5 - 10.3 mg/dL [facility] ([place]) Bilirubin, total <0.2 0.1 - 1.2 mg/dL [facility] ([place] Protein, pl 7.3 6.5 - 8.5 g/dL [facility] Albumin 4.2 3.5 - 5.0 g/dL [facility] Alk phos 61 40 - 130 Units/L [facility]) ALT 19 7 - 45 Units/L [facility] AST 19 10 - 45 Units/L [facility] ([place]) Blood 08/29/2024 2:17 PM CDT 08/29/2024 2:53 PM CDT us Sharee Vargas MD LAB BLOOD ORDERABLES Final Result [facility] ([place]) 1 [facility] Department of Laboratories [place] [id number] * Hepatitis C antibody (10/13/2018 2:02 PM CDT) Hep C Ab Non-Reactiv e Non-Reactiv e [facility] Blood specimen (specimen) 10/13/2018 2:02 PM CDT 10/13/2018 4:07 PM CDT Narrative [facility] - 10/13/2018 6:55 PM CDT us Sarika Garg MD LAB MICROBIOLOGY - GENERAL ORDER JUAN DAVID Final Result Performing Organization Address City/[facility]/ZIP Co de Phone Number [facility] [address] Department [place] [address] from Last 3 Months or Most Recently Relevant to Health Maintenance Insurance MEDICARE IDPA MEDICARE IDPA MEDICARE IDPA Advance Directives For more information, please contact: [phone] * Full Code (Latest Code Status on File) Date Activated Date Inactivated Comments 12/28/2021 11:29 AM 12/28/2021 5:57 PM * Full Code Date Activated Date Inactivated Comments 12/28/2021 11:29 AM 12/28/2021 11:29 AM * Full Code Date Activated Date Inactivated Comments 01/09/2019 12:38 PM 01/09/2019 5:59 PM * Full Code Date Activated Date Inactivated Comments 01/09/2019 12:37 PM 01/09/2019 12:38 PM Care Teams Tack Coverer Relationship Specialty Start Date End Date Alisha Lal NP [address] [place] [address] PCP - General Family Medicine 03/29/24
--- OUTSIDE RECORDS SUMMARY | 2024-11-27 16:11 | XMS_ITS | Patient Health Record ---
Author Organization [facility] sam Address [address] [facility] [address] [place] [address] Care Team Providers Care Apiculture Teacher Name Role Phone Sarika Garg Primary Care Provider [phone] Allergies No Known Allergies Reason For Referral No Information Medications Medication SIG (Take, Route, Frequency, Duration) Notes Start Date End Date Status amLODIPine Besylate 5 MG take 1 tablet ( 5 mg) by oral route once daily Oral 1 Active Linzess 290 MCG take 1 capsule (290 mcg) by oral route once daily on an empty stomach at least 30 minutes before 1st meal of the day Oral 1 Activ e Famotidine 40 MG take 1 tablet (40 mg ) by oral route once daily at bedtime Oral 1 Active buPROPion HCl ER (SR) 200 MG take 1 tablet (200 mg) by oral route 2 times per day Oral 2 Active Metoprolol Tartrate 25 MG take 1 tablet (25 mg) by oral route once daily Oral 1 Active Plan Of Treatment No Information Insurance Providers Payer Name Payer Address Payer Phone Subscriber Number Group Number Insured Name Patient Relationship to Insured Coverage Start Date Coverage End Date Medicare [address] [address] [place] [address] [id number] Alberto Ponce Self - patient is the insured [place] [address] [address] [place] [address] [id number] Alberto Ponce Self - patient is the insured Medical (General) History Surgical History Surgery Date(Month/Year) C section; 2018-10-03
--- OUTSIDE RECORDS SUMMARY | 2024-11-27 16:11 | XMS_ITS ---
Author Organization [facility] Address [address] [facility] [address] [place] [address] Care Team Providers Care Electric Shaver Mechanic Name Role Phone Forest Sarika Primary Care Provider [phone] REASON FOR VISIT establish care Encounters Encounter Location Date Provider Diagnosis [facility] [address] [facility] [address] [place] [address] 08/31/2023 Sarika Gibson Plan Of Treatment No Information Progress Notes * Alberto GONZLAES LDOB:1985 (39 yo F)Acc No.[id number]:08/31/2023 Progress Notes Patient: Alberto AMAYA Appointment Provider: Dorie GIBSON MD :1985 A ge:38 Y S ex:Female Date:08/31/2023 Address:[address] Subjective: * Chief Complaints: * 1 . Establish care. * Medical History: Objective: * Vitals: Assessment: Plan: * Treatment: * Billing Information: * Visit Code: * Procedure Codes: * Electronic signature of Sarika Gibson MD on 11/27/2024 at 04:10 PM CDT Sign off status: Pending * Appointment Provider: Dorie GIBSON MD Date: 08/31/2023 Generated for Maddi mathew/Mabel/eTsiva on: 11/27/2024 04:10 PM CDT
--- OUTSIDE RECORDS SUMMARY | 2024-11-27 16:11 | XMS_ITS | Data Portability ---
Author Organization [facility] [place] Address [address] [place] [address] Care Team Providers Care Technical Sales Manager Name Role Phone KIM MINOR Primary Care Provider [phone] Assessment Encounter Date Assessment Date Assessment LastModified by Organization Details LastModified Time 10/15/2020 10/15/2020 reviewed vulvar care consider boric acid if all tests normal [email or web address] Not available 10/15/2020 16:10:02 06/03/2021 06/03/2021 reviewed vulvar guidelines, ok to use boric acid [email or web address] Not available 06/03/2021 11:13:13 12/11/2021 12/11/2021 Annual gynecological exam performed. Patient will come back in a year unless there are new symptoms. Suggest Calcium with Vitamin D if not eating in diet. Patient advised to get annual flu shot. Recommend yearly physicals and preform monthly breast exams. Genetic testing is available for patients with family history of cancer. Engage in safe sexual practices, use condoms. Encouraged to have daily exercise. Avoid tobacco and illicit drugs, moderation of alcohol. If BMI greater than 25 dietary consult advised. If you have any questions please call or email. [email or web address] Not available 12/11/2021 12:30:24 09/05/2024 09/05/2024 Annual gynecological exam performed. Patient will come back in a year unless there are new symptoms. [email or web address] Not available 09/05/2024 14:28:00 Plan of Treatment Reminders Order Date Submit Date Provider Last Modified By Organization Details Last Modified Time Details Appointments None recorded. Lab hormone panel, serum or plasma 2024 025 [facility] (Lab), [address], [place], [address], 5 04:11:50 testosteron e, total, serum 2024 025 [facility] (Lab), [address], [place], [address], 5 04:11:50 testosteron e, free, serum 2024 025 [facility] (Lab), [address], [place], [address], 5 04:11:50 prolactin, serum 2024 025 [facility] (Lab), [address], [place], [address], 5 04:11:50 TSH, serum or plasma 2024 025 [facility] (Lab), [address], [place], [address], 5 04:11:51 CMP, serum or plasma 2024 025 [facility] (Lab), [address], [place], [address], 5 04:11:51 HbA1c (hemoglobin A1c), blood 2024 025 [facility] (Lab), [address], [place], [address], 5 04:11:51 pap, IG + HR HPV - HPV regardless but if HPV is positive need subtyping 16,18/45 2024 025 [facility] (Lab), [address], [place], [address], 5 12:44:12 Referral None recorded. Procedures None recorded. Surgeries None recorded. Imaging MAMMO, screening, digital, bilateral 2024 025 [facility], [address], [address] [address], [place], [address], 04:11:50 Medication Orders clindamycin HCl 300 mg capsule 2021 022 [email or web address] 1 [facility][id number], [address], [place], [place], [id number], 2 12:23:47 Diflucan 150 mg tablet 2021 022 [email or web address] 1 [facility] #32453, [address], [place], [place], [id number], 2 12:23:51 metronidazo le 500 mg tablet [address] [facility]98096, [address], [place], [place], [id number], 5 14:53:46 Diflucan 150 mg tablet 2021 022 [email or web address] 1 [facility] #98893, [address], [place], [place], [id number], 2 12:23:51 Diflucan 150 mg tablet 2020 021 [email or web address] 1 [facility] #22546, [address], [place], [place], [id number], 2 12:23:51 Flagyl 500 mg tablet [address] [facility]48515, [address], [place], [place], [id number], 5 14:53:46 Patient TargetsNo targets recorded. Patient InstructionsNo instructions recorded. Reason for Referral None Reported. Results Created Date Observation Date Name Description Value Unit Range Abnormal Flag Note LastModifiedBy Organization Detail LastModifiedTime 10/16/1910/15/2020 cultu re, urine result report SEE RESULT S BELOW Test: Cultu re: Urine Speci men Sourc e: Urine Voide d Speci men Type: Urine Speci men Date: 021 4:43 PM Resul t Date: 2020 10:04 PM Resul t Statu s: Final resul t Abnor mal: No Resul ting Lab: [facility] [address] [facility] [address] Tel: CULTU RE ----- ----- ----- --- No growt h in 1 day (dete ction level of 10,00 0 colon ies / ml.) Not Available [facility] (Lab) [address] [place], [address], 10/16/2020 23:12:58 10/16/1910/15/2020 hyacinth da sp DNA, vagin al neli albicans PCR Negati ve Swab- 1 Vagin al Not Available [facility] (Lab) [address] [place], [address], 10/20/2020 08:03:24 10/16/1910/15/2020 hyacinth da sp DNA, vagin al neli tropicalis PCR Negati ve Swab- 1 Vagin al Not Available [facility] (Lab) [address] [place], [address], 10/20/2020 08:03:24 10/16/1910/15/2020 hyacinth da sp DNA, vagin al neli parapsilosis PCR Negati ve Swab- 1 Vagin al Not Available [facility] (Lab) [address] [place], [address], 10/20/2020 08:03:24 06/09/20 21 10/15/2020 hyacinth da sp DNA, vagin al neli glabrata PCR Negati ve Swab- 1 Vagin al Not Available [facility] (Lab) [address] [facility], [place], [address], 10/20/2020 08:03:24 10/16/19 21 10/15/2020 STI panel nm bkr mycoplasma genitalium by RT-PCR Negati ve Swab- 1 Vagin al Not Available [facility] (Lab) [address] [facility], [place], [address], 10/20/2020 08:03:26 10/16/19 21 10/15/2020 STI panel nm bkr mycoplasma hominis by RT-PCR Negati ve Swab- 1 Vagin al Not Available [facility] (Lab) [address] [facility], [place], [address], 10/20/2020 08:03:26 10/16/19 21 10/15/2020 STI panel nm bkr ureaplasma urealyticum by RT-PCR Negati ve Swab- 1 Vagin al Not Available [facility] (Lab) [address] [facility], [place], [address], 10/20/2020 08:03:26 10/16/19 21 10/15/2020 hyacinth da zahraa i DNA, vagin al neli krusei by RT-PCR Negati ve Swab- 1 Vagin al Not Available [facility] (Lab) [address] [facility], [place], [address], 10/20/2020 08:03:26 10/16/19 21 10/15/2020 mobil uncus , DNA, vagin al nm bkr mobiluncus mulieris and mobiluncus curtisii by RT-PCR Negati ve Swab- 1 Vagin al Not Available [facility] (Lab) [address] [facility], [place], [address], 10/20/2020 08:03:27 10/16/19 21 10/15/2020 bacte rial vagin osis DNA, PCR, vagin al fluid gardnerella vaginalis PCR Negati ve Swab- 1 Vagin al Not Available [facility] (Lab) [address] [place], [address], 10/20/2020 08:03:27 10/16/19 21 10/15/2020 bacte rial vagin osis DNA, PCR, vagin al fluid atopobium vaginae PCR Negati ve Swab- 1 Vagin al Not Available [facility] (Lab) [address] [place], [address], 10/20/2020 08:03:27 10/16/19 21 10/15/2020 bacte rial vagin osis DNA, PCR, vagin al fluid bacterial vaginosis associated bacteria 2 (bvab2) Negati ve Swab- 1 Vagin al Not Available [facility] (Lab) [address] [place], [address], 10/20/2020 08:03:27 10/16/19 21 10/15/2020 bacte rial vagin osis DNA, PCR, vagin al fluid megasphaera species (type 1 and type 2) PCR Negati ve (Type1 ,Type2 ) Swab- 1 Vagin al Type1 :Nega tive Type2 :Nega tive. Not Available [facility] (Lab) [address] [place], [address], 10/20/2020 08:03:27 10/16/1910/15/2020 bacte rial vagin osis DNA, PCR, vagin al fluid lactobacillu s (bvpanel) PCR See Commen t Swab- 1 Vagin al L.cri spatu s: Posit jordy L.ilda senii : Posit jordy L.gas seri : Negat jordy L.ine rs : Negat jordy. Not Available [facility] (Lab) [address] [place], [address], 10/20/2020 08:03:27 10/16/19 21 10/15/2020 urina lysis , dipst ick Leukocytes trace Not Available [facility] [address] [place], [address], 10/15/2020 16:00:27 10/16/19 21 10/15/2020 urina lysis , dipst ick Nitrite normal Not Available [facility] [address], [place], [address], 10/15/2020 16:00:27 10/16/19 21 10/15/2020 urina lysis , dipst ick Urobilinogen normal Not Available [facility], [place], [address], 10/15/2020 16:00:27 10/16/19 21 10/15/2020 urina lysis , dipst ick Protein trace Not Available [facility] [address], [place], [address], 10/15/2020 16:00:27 10/16/19 21 10/15/2020 urina lysis , dipst ick pH normal Not Available [facility] [address], [place], [address], 10/15/2020 16:00:27 10/16/19 21 10/15/2020 urina lysis , dipst ick Specific [place] 1.020 Not Available [facility] [address], [place], [address], 10/15/2020 16:00:27 10/16/19 21 10/15/2020 urina lysis , dipst ick Ketone normal Not Available [facility] [address], [place], [address], 10/15/2020 16:00:27 10/16/19 21 10/15/2020 urina lysis , dipst ick Bilirubin normal Not Available [facility] [address], [place], [address], 10/15/2020 16:00:27 10/16/19 21 10/15/2020 urina lysis , dipst ick Glucose normal Not Available [facility] [address], [place], [address], 10/15/2020 16:00:27 10/16/19 21 10/15/2020 urina lysis , dipst ick Appearance normal Not Available [facility] aki [address], [place], [address], 10/15/2020 16:00:27 10/16/19 21 10/15/2020 urina lysis , dipst ick Color normal Not Available [facility] [address], [place], [address], 10/15/2020 16:00:27 10/16/19 21 10/15/2020 pregn otoniel test, urine HCG negati ve Not Available [facility] [address], [place], [address], 10/15/2020 15:59:50 06/03/19 22 06/03/2021 VAGIN ITIS/ VAGIN OSIS, DNA PROBE neli sp. detection, direct probe Negati ve negati ve Not Available [facility] (Lab) [address] [place], [address], 06/04/2021 20:01:29 06/03/19 22 06/03/2021 VAGIN ITIS/ VAGIN OSIS, DNA PROBE gardnerella vag. detection, direct probe Positi ve negati ve abnormal Not Available [facility] (Lab) [address] [place], [address], 06/04/2021 20:01:29 06/03/19 22 06/03/2021 VAGIN ITIS/ VAGIN OSIS, DNA PROBE trichomonas vag. detection, direct probe Negati ve negati ve Not Available [facility] (Lab) [address] [facility], [place], [address], 06/04/2021 20:01:29 06/26/19 22 06/26/2021 CT/GC AND TRICH OMONA S VAGIN FELIX (RRNA ), SWAB chlamydia trachomatis, PCR Negati ve negati ve Not Available [facility] (Lab) [address] [facility], [place], [address], 07/06/2021 16:07:26 06/26/19 22 06/26/2021 CT/GC AND TRICH OMONA S VAGIN FELIX (RRNA ), SWAB neisseria gonorrhoeae, PCR Negati ve negati ve Not Available [facility] (Lab) [address] [facility], [place], [address], 07/06/2021 16:07:26 06/26/19 22 06/26/2021 CT/GC AND TRICH OMONA S VAGIN FELIX (RRNA ), SWAB trichomonas vaginalis ribosomal RNA (rrna) Negati ve negati ve Not Available [facility] (Lab) [address] [facility], [place], [address], 07/06/2021 16:07:26 06/26/19 22 06/26/2021 MOBIL UNCUS MULIE RIS/C URTIS CYNDY, RT-PC R, ONE SWAB nm bkr mobiluncus mulieris and mobiluncus curtisii by RT-PCR Negati ve Swab- 1 Vag Cerv Not Available [facility] (Lab) [address] [facility], [place], [address], 07/06/2021 16:07:26 06/26/19 22 06/26/2021 HYACINTH DA ZAHRAA I BY RT-PC R neli krusei by RT-PCR Negati ve Swab- 1 Vag Cerv Not Available [facility] (Lab) [address] [facility], [place], [address], 07/06/2021 16:07:27 06/26/19 22 06/26/2021 UROGE NITAL MYCOP LASMA /UREA PLASM A PANEL RT-PC R, ONESW AB nm bkr mycoplasma genitalium by RT-PCR Negati ve Swab- 1 Vag Cerv Not Available [facility] (Lab) [address] [place], [address], 07/06/2021 16:07:27 06/26/19 22 06/26/2021 UROGE NITAL MYCOP LASMA /UREA PLASM A PANEL RT-PC R, ONESW AB nm bkr mycoplasma hominis by RT-PCR Negati ve Swab- 1 Vag Cerv Not Available [facility] (Lab) [address] [facility], [place], [address], 07/06/2021 16:07:27 06/26/19 22 06/26/2021 UROGE NITAL MYCOP LASMA /UREA PLASM A PANEL RT-PC R, ONESW AB nm bkr ureaplasma urealyticum by RT-PCR Negati ve Swab- 1 Vag Cerv Not Available [facility] (Lab) [address] [place], [address], 07/06/2021 16:07:27 06/26/19 22 06/26/2021 HYACINTH DA VAGIN ITIS PANEL RT-PC R, ONESW AB neli albicans PCR Negati ve Swab- 1 Vag Cerv Not Available [facility] (Lab) [address] [place], [address], 07/06/2021 16:07:28 06/26/19 22 06/26/2021 HYACINTH DA VAGIN ITIS PANEL RT-PC R, ONESW AB neli tropicalis PCR Negati ve Swab- 1 Vag Cerv Not Available [facility] (Lab) [address] [place], [address], 07/06/2021 16:07:28 06/26/19 22 06/26/2021 HYACINTH DA VAGIN ITIS PANEL RT-PC R, ONESW AB neli parapsilosis PCR Negati ve Swab- 1 Vag Cerv Not Available [facility] (Lab) [address] [place], [address], 07/06/2021 16:07:28 06/26/19 22 06/26/2021 HYACINTH DA VAGIN ITIS PANEL RT-PC R, ONESW AB neli glabrata PCR Negati ve Swab- 1 Vag Cerv Not Available [facility] (Lab) [address] [facility], [place], [address], 07/06/2021 16:07:28 06/26/19 22 06/26/2021 BACTE RIAL VAGIN OSIS PANEL RT-PC R, ONESW AB gardnerella vaginalis PCR Negati ve Swab- 1 Vag Cerv Not Available [facility] (Lab) [address] [place], [address], 07/06/2021 16:07:28 06/26/19 22 06/26/2021 BACTE RIAL VAGIN OSIS PANEL RT-PC R, ONESW AB atopobium vaginae PCR Negati ve Swab- 1 Vag Cerv Not Available [facility] (Lab) [address] [place], [address], 07/06/2021 16:07:28 06/26/19 22 06/26/2021 BACTE RIAL VAGIN OSIS PANEL RT-PC R, ONESW AB bacterial vaginosis associated bacteria 2 (bvab2) Negati ve Swab- 1 Vag Cerv Not Available [facility] (Lab) [address] [facility], [place], [address], 07/06/2021 16:07:28 06/26/19 22 06/26/2021 BACTE RIAL VAGIN OSIS PANEL RT-PC R, ONESW AB megasphaera species (type 1 and type 2) PCR Negati ve (Type1 ,Type2 ) Swab- 1 Vag Cerv Type1 :Nega tive Type2 :Nega tive. Not Available [facility] (Lab) [address] [place], [address], 07/06/2021 16:07:28 06/26/19 22 06/26/2021 BACTE RIAL VAGIN OSIS PANEL RT-PC R, ONESW AB lactobacillu s (bvpanel) PCR See Commen t Swab- 1 Vag Cerv L.cri spatu s: Posit jordy L.ilda senii : Negat jordy L.gas seri : Negat jordy L.ine rs : Posit jordy. Not Available [facility] (Lab) [address], [place], [address], 07/06/2021 16:07:28 12/12/19 22 12/11/2021 TSH, REFLE X FREE T4 TSH 2.62 uIU/m L 0.30-5 .33 Not Available [facility] [address] [facility], [place], [address], 12/12/2021 04:04:05 12/12/19 22 12/11/2021 IMAGE GUIDE D PAP AND HPV REGAR DLESS image guided Pap, HPV regardless of Pap result SEE RESULT S BELOW CASE REPOR T: Cytol ogy Gynec ologi jose Repor t Case: [id number]ala Provi mane: Vivian Pang, BEE Colle cted: 12/11 1610 Order ing Locat ion: [place] [facility] Recei dania: 12/12 0115 First Scree n: Larissa Rodriges ret, CT Rescr een: Cuca Solorzano Speci men: Scree annabelle Pap - Image d, Cervi x STATE MENT OF ADEQU ACY: Satis facto ry for evalu ation Trans forma tion zone compo nent absen t The absen ce of an endoc ervic al compo nent was confi rmed by an addit ional scree ner. FINAL DIAGN OSIS: Negat jordy for Intra epith elial Azar n or Petros riley (NIL) . Wilber perez d by Cuca Solorzano on 2021 at 12:33 PM ----- ----- ----- ----- ----- ----- ----- ----- ----- ----- ----- ----- ----- ----- ----- ----- ----- ---- HPV RESUL TS: HPV mRNA E6/E7 : No HPV mRNA Detec danni NOTE: This high risk HPV mRNA assay detec ts fourt een high- risk HPV types (16, 18, 31, 33, 35, 39, 45, 51, 52, 56, 58, 59, 66, 68) witho ut diffe renti ation . COMME NT: Note: This speci men was revie wed by a Cytot echno logis t and/o r Patho logis t (as indic ated in this repor t) after evalu ation using the Thinp rep Imagi ng Syste m. CLINI JOSE INFOR MATIO N: Menst rual Statu s: LMP (if appli cable ): Clini jose Histo ry/Pr eviou s Pap: Type of Neopl misha (if appli cable ): Signi fican t Clini jose Findi ngs: Other Histo ry: Hormo tres (if appli cable ): PAP EDUCA RAJAN L NOTE: The Pap Test is a scree annabelle test with an inher ent false negat jordy rate. Liqui d-bas ed sampl ing may decre ase, but will not elimi nancie, false negat jordy resul ts. A negat jordy resul t does not precl ude the prese nce and/o r devel opmen t of disea se, since the prese nce of abnor mal cells in the sampl e depen ds on the locat ion of the lesio n and sampl ing techn ique. Elise nued regul ar scree annabelle is the best metho d of cance r preve ntion . If repor danni cytol ogic findi ng do not corre late with physi jose and/o r histo rical findi ngs, furth er inves tigat ion is recom froilan d, as clini rayna westfall nted. Not Available [facility] [address] [place], [address], 12/16/2021 13:36:56 09/06/19 09/05/2024 IMAGE GUIDE D PAP AND HPV REGAR DLESS image guided Pap, HPV regardless of Pap result SEE RESULT S BELOW CASE REPOR T: Cytol ogy Gynec ologi jose Repor t Case: [id number] [address] ayala Provi mane: Casey Rocha MD Colle cted: 09/05 1600 Order ing Locat ion: [place] [facility] Recei dania: 09/06 0856 First Scree n: Mehran chavez, Kevyn catalan, CT Rescr een: Larissa Rodriges ret, CT Speci men: Scree annabelle Pap - Image d, Cervi x STATE MENT OF ADEQU ACY: Satis facto ry for evalu ation Trans forma tion zone compo nent absen t Parti ally obscu ring infla mmati on prese nt. The absen ce of an endoc ervic al compo nent was confi rmed by an addit ional scree ner. ----- ----- ----- ----- ----- ----- ----- ----- ----- ----- ----- ----- ----- ----- ----- ----- ----- ---- FINAL DIAGN OSIS: Negat jordy for Intra epith elial Lesoneil poole or Petros riley (NIL) . Wilber perez d by Larissa Rodriges ret, CT on 025 at 1140 CDT ----- ----- ----- ----- ----- ----- ----- ----- ----- ----- ----- ----- ----- ----- ----- ----- ----- ---- HPV RESUL TS: HPV mRNA E6/E7 : No HPV mRNA Detec danni NOTE: This high risk HPV mRNA assay detec ts fourt een high- risk HPV types (16, 18, 31, 33, 35, 39, 45, 51, 52, 56, 58, 59, 66, 68) witho ut diffe renti ation . COMME NT: This speci men was revie wed by a Cytot echno logis t and/o r Patho logis t (as indic ated in this repor t) after evalu ation using the Thinp rep Imagi ng Syste m. CLINI JOSE INFOR MATIO N: Menst rual Statu s: LMP (if appli cable ): Clini jose Histo ry/Pr eviou s Pap: Type of Neopl misha (if appli cable ): Signi fican t Clini jose Findi ngs: Other Histo ry: Hormo tres (if appli cable ): PAP EDUCA RAJAN L NOTE: The Pap Test is a scree annabelle test with an inher ent false negat jordy rate. Liqui d-bas ed sampl ing may decre ase, but will not elimi nancie, false negat jordy resul ts. A negat jordy resul t does not precl ude the prese nce and/o r devel opmen t of disea se, since the prese nce of abnor mal cells in the sampl e depen ds on the locat ion of the lesio n and sampl ing techn ique. Elise nued regul ar scree annabelle is the best metho d of cance r preve ntion . If repor danni cytol ogic findi ng do not corre late with physi jose and/o r histo rical findi ngs, furth er inves tigat ion is recom froilan d, as clini rayna westfall nted. Not Available [facility] (Lab) [address] [facility], [place], [address], 09/10/2024 12:44:12 Result Notes None recorded. Problems Name Problem SNOMED Code Status Onset Date Resolution Date Notes Provider Name and Address Organization Details Recorded Time Increase d frequenc y of urinatio n [id number] Completed 201007/29/2020 Urinary frequenc y;Record ed Elsewher e: No Locat ion: [facility] S ource: EHR Strategy Analyst sam: N Practi ce ID: [id number] Agusto lable Time: 02:45:00 PM Candice casas, [facility] 13:04:42 Female genital organ symptoms [id number] Completed 201007/29/2020 Unspecif ied symptom associat ed with female genital organs;R ecorded Elsewher e: No [facility] our[facility]: EHR Strategy Analyst sam: N Erwinti ce ID: [id number] Agusto lable Time: 02:45:00 PM Candice Morfin augusto, [facility] 13:04:29 Left lower quadrant pain [id number] Completed 201007/29/2020 Abdomina l pain, left lower quadrant ;Practic e ID: 0001 Candice Morfin augusto, [facility] 13:04:51 Urge incontin ence of urine [id number] Completed 201107/29/2020 Urge incontin ence;Rec orded Elsewher e: No Locat ion: [facility] S ource: EHR Strategy Analyst sam: N Practi ce ID: 0001 Agusto lable Time: 05:15:00 PM Candice casas [facility] 13:05:22 Ill-defi duane intestin al infectio n Completed 201107/29/2020 No Show Fee;Prac duke ID: 0001 Candice Morfin augusto, [facility] 13:04:40 Vaginiti s and vulvovag initis Completed 201107/29/2020 Vaginiti s;Record ed Elsewher e: No Locat ion: [facility] S ource: EHR Strategy Analyst sam: N Practi ce ID: 0001 Agusto lable Time: 10:15:00 AM Candice casas [facility] 13:05:24 Speciali zed medical examinat ion Completed 201207/29/2020 Gynecolo gical Examinat ion;Shashank rded Elsewher e: No Locat ion: Cleopatra barroso [facility] S ource: EHR Strategy Analyst sam: N Erwinti ce ID: 0001 Agusto lable Time: 09:30:00 AM Candice Bañuelostz augusto, [facility] 13:05:19 Irregula r periods [id number] Completed 201207/29/2020 Irregula r menstrua l cycle;Re corded Elsewher e: No [facility] S ource: EHR Strategy Analyst sam: N Erwinti ce ID: 0001 Agusto lable Time: 11:15:00 AM Candice Morfin augusto, [facility] 13:04:44 Removal of intraute rine device Completed 201207/29/2020 REMOVAL OF IUD;Shashank rded Elsewher e: No Locat ion: Brianda chio [facility] S ource: EHR Strategy Analyst sam: N Erwinti ce ID: 0001 Agusto lable Time: 11:15:00 AM Candice Morfin augusto [facility] 13:05:05 Overweig ht [id number] Completed 201307/29/2020 Overweig ht;Recor ded Elsewher e: No [facility] S ource: EHR Strategy Analyst sam: N Erwinti ce ID: 0001 Agusto lable Time: 04:45:00 PM Candice Morfin augusto [facility] 13:04:57 Adult health examinat ion Completed 201407/29/2020 ROUTINE MEDICAL EXAM;Rec orded Elsewher e: No Locat ion: [facility] S ource: EHR Strategy Analyst sam: N Erwinti ce ID: 0001 Agusto lable Time: 11:00:00 AM Candice Morfin augusto [facility] 13:04:18 IUCD status [id number] Completed 201407/29/2020 IUD contrace ption;Re corded Elsewher e: No Locat ion: Luzmawenceslao chio [facility] N Erwinti ce ID: 0001 Agusto lable Time: 11:00:00 AM Candice casas [facility] 1 13:04:48 Pelvic injury Completed 201407/29/2020 Injury of external genitals , initial encounte r;Record ed Elsewher e: No Locat ion: [facility]: N Erwinti ce ID: 0001 Agusto lable Time: 02:15:00 PM Candice casas, [facility] 13:04:59 Finding of pattern of menstrua l cycle Completed 201507/29/2020 Other specifie d irregula r menstrua tion;Rec orded Elsewher e: No [facility] N Erwinti ce ID: 0001 Agusto lable Time: 04:00:00 PM Candice casas [facility] 13:04:31 Atypical squamous cells of undeterm ined signific ance on cervical Papanico laou smear [id number] Completed 201607/29/2020 Atyp squam cell of undet signfc cyto smr crvx (ASC-US) ;Recorde d Elsewher e: No [facility]: N Practi ce ID: 0001 Agusto lable Time: 01:30:00 PM Candice casas [facility] 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 13:05:17 Low grade squamous intraepi thelial lesion on cervical Papanico laou smear [id number] 105 Completed 201607/29/2020 Low grade intrepit h lesion cyto smr crvx (LGSIL); Recorded Elsewher e: No Locat ion: [facility] S ource: EHR Strategy Analyst sam: N Nasim ce ID: 0001 Agusto lable Time: 10:30:00 AM Candice Morfin [facility], [facility] 13:04:[address] Concept Completed 201607/29/2020 Encntr for general adult medical exam w/o abnormal findings ;Recorde d Elsewher e: No Locat ion: [facility] S ource: EHR Strategy Analyst sam: Ann Rouse ce ID: 0001 Agusto lable Time: 01:00:00 PM Candice Morfin [facility], [facility] 13:05:12 Low risk human papillom avirus deoxyrib onucleic acid detected in specimen from cervix [id number] Completed 201607/29/2020 Cervical low risk HPV DNA test positive ;Recorde d Elsewher e: No Locat ion: [facility] S ource: EHR Strategy Analyst sam: N Nasim ce ID: 0001 Agusto lable Time: 03:45:00 PM Candice casas, [facility] 13:04:34 Screenin g for malignan t neoplasm of cervix Completed 201707/29/2020 Encounte r for screenin g for malignan t neoplasm of cervix;R ecorded Elsewher e: No Locat ion: [facility] S ource: EHR Strategy Analyst sam: Ann Rouse ce ID: 0001 Agusto lable Time: 01:00:00 PM Candice casas [facility] 13:05:08 At risk - finding [id number] Completed 201707/29/2020 Oth personal risk factors, not elsewher e classifi ed;Pract ice ID: 0001 Candice casas, [facility] 13:04:20 Atypical squamous cells on cervical Papanico laou smear cannot exclude high grade squamous intraepi thelial lesion [id number] Completed 201707/29/2020 Atyp squam cell not excl hi grd intrepit h lesn cyto smr crvx;Rec orded Elsewher e: No [facility]: EHR Strategy Analyst sam: N Erwinti ce ID: 0001 Agusto lable Time: 09:30:00 AM Candice casas, [facility] 13:04:24 Pregnanc y test negative [id number] Completed 201707/29/2020 Encounte r for pregnanc y test, result negative ;Recorde d Elsewher e: No Locat ion: [facility] S ource: EHR Strategy Analyst sam: N Practi ce ID: 0001 Agusto lable Time: 08:30:00 AM Candice casas [facility] 13:05:02 Evaluati on finding Completed 201707/29/2020 Unsp abnormal cytolog findings in specmn from cervix uteri;Re corded Elsewher e: No [facility]: EHR Strategy Analyst sam: N Practi ce ID: 0001 Agusto lable Time: 08:30:00 AM Candice Morfin [facility] 13:04:[address] Concept Completed 201807/29/2020 Encntr for routine child health exam w/o abnormal findings ;Recorde d Elsewher e: No [facility]: EHR Strategy Analyst sam: N Practi ce ID: 0001 Agusto lable Time: 09:00:00 AM Candice casas [facility] 1 13:05:15 Acute vaginiti s [id number] Completed 201907/29/2020 Acute vaginiti s;Record ed Elsewher e: No Locat ion: Cleopatra barroso [facility] S ource: EHR Strategy Analyst sam: N Practi ce ID: 0001 Agusto lable Time: 11:00:00 AM Candice casas [facility] 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 0 23:23:47 Abnormal cervical Papanico laou smear [id number] Completed 201907/29/2020 Candice casas [facility] 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 0 23:24:28 Narcolep sy 65959290 Active 2019 Candice Morfin [facility], [facility] 0 23:24:47 Hyperten sive disorder 46203431 Active 2021 Candice Morfin [facility] 2 16:29:03 Problem Notes None recorded. Procedures Surgical History Date Name Laterality Status Provider Name and Address Organization Details Recorded Time 022 Date of Last Pap Smear completed Candice Morfin [facility] 12/11/2021 12:25:00 019 Colposcopy completed Candice Morfin [facility] 06/03/2021 10:11:35 019 Colposcopy completed Candice Morfin [facility] 07/29/2020 13:13:31 019 Colposcopy completed [facility] 07/29/2020 13:13:08 018 Colposcopy completed [facility] 07/29/2020 13:12:48 017 Colposcopy completed [facility] 07/29/2020 13:12:25 007 section completed [facility] 12/20/2019 23:21:22 004 hemorrhoidectomy completed [facility] 12/20/2019 23:21:44 Imaging Results None recorded. Procedure Notes None recorded. Medical Equipment None Reported. Allergies No known drug allergies Medications Name Sig Start Date Stop Date Status Note LastModified by Organization Details LastModified Time fluoxetin e 40 mg capsule TAKE 1 CAPSULE BY MOUTH DAILY active Not Available Not Available No t Available amoxicill in 500 mg capsule 12/20 completed Not Available Not Available Not Available buspirone 5 mg tablet 07/29 completed Not Available Not Available Not Available clindamyc in HCl 300 mg capsule TAKE 1 CAPSULE BY MOUTH EVERY 12 HOURS 12/11 completed Not Available Not Available Not Available verapamil 40 mg tablet take 1 tablet by oral route 3 times every day 08/14 completed [facility] ed Elsewher e: Yes Loca tion: Cleopatra barroso [facility] M odify By: carrie Barroso ncounter DateTime : 06/16/19 03:30:00 PM Not Available Not Available Not Available fluconazo le 150 mg tablet TAKE 1 TABLET BY MOUTH 1 TIME active Not Available Not Available No t Available metronida zole 0.75 % (37.5 mg/5 gram) vaginal gel INSERT 1 APPLICAT ORFUL VAGINALL Y EVERY DAY AT BEDTIME 07/24 completed Not Available Not Available Not Available famotidin e 40 mg tablet take 1 tablet by oral route every day at bedtime 07/29 completed Prescrib ed Elsewher e: Yes [facility] By: [email or web address] z Viviana ter DateTime : 02/15/20 19 09:00:00 AM Not Available Not Available Not Available prednison e 20 mg tablet TAKE 1 TABLET BY MOUTH TWICE DAILY FOR 5 DAYS 09/05 completed Not Available Not Available Not Available Zithromax Z-Abdulaziz 250 mg tablet take 2 tablet by oral route every day for 1 day then 1 tablet (250 mg) by oral route once daily for 4 days 07/30 completed Prescrib ed Elsewher e: No Locat ion: [facility] odify By: jenae ortega DateTime : 11/27/19 14 09:42:20 AM Not Available Not Available Not Available amlodipin e 2.5 mg tablet take 1 tablet by oral route every day 06/16 completed Prescrib ed Elsewher e: Yes Loca tion: [facility] odify By: carrie gar DateTime : 08/15/19 19 03:30:00 PM Not Available Not Available Not Available metronida zole 500 mg tablet TAKE 1 TABLET BY MOUTH TWICE DAILY FOR 7 DAYS 09/05 completed Not Available Not Available Not Available azathiopr ine 50 mg tablet TAKE 1 TABLET BY MOUTH DAILY 06/26 completed Not Available Not Available Not Available amlodipin e 5 mg tablet TAKE 1 TABLET BY MOUTH DAILY active Not Available Not Available No t Available amoxicill in 500 mg tablet take 1 tablet by oral route 3 times every day 04/25 completed Prescrib ed Elsewher e: No Locat ion: [facility] odify By: amkkayden Barroso ncounter DateTime : 03/07/20 17 10:25:02 AM Not Available Not Available Not Available dextroamp hetamine- amphetami ne 30 mg tablet 12/20 completed Not Available Not Available Not Available hydrocort isone 2.5 % topical cream with perineal applicato r APPLY 1 APPLICAT ORFULL RECTALLY AT NIGHT WHEN HEMORRHO IDS ARE PROBLEMA TIC 07/24 completed Not Available Not Available Not Available amoxicill in 875 mg tablet 12/20 completed Not Available Not Available Not Available lorazepam 0.5 mg tablet TAKE 1 TABLET BY MOUTH THREE TIMES DAILY active Not Available Not Available No t Available methocarb mundo 750 mg tablet TAKE 1 TABLET BY MOUTH THREE TIMES DAILY FOR TENDONIT IS 06/26 completed Not Available Not Available Not Available triamcino lone acetonide 0.1 % dental paste APPLY TO DENTAL AREA TWO TO THREE TIMES DAILY NEEDED FOR MOUTH IRRITATI ON. USE AFTER FOOD AND/OR DRINK AND/OR ORAL HYGIENE 07/24 completed Not Available Not Available Not Available pantopraz ole 40 mg tablet,de layed release 06/03 completed Not Available Not Available Not Available polymyxin B sulfate 10,000 unit-trim ethoprim 1 mg/mL eye drops INSTILL 1 DROP IN LEFT EYE EVERY 3 HOURS WHILE AWAKE FOR 7 DAYS. DO NOT EXCEED 6 DOSES IN 24 HOURS 09/05 completed Not Available Not Available Not Available Wellbutri n 75 mg tablet take 1 tablet by oral route 3 times every day 08/14 completed Prescrib ed Elsewher e: Yes Loca tion: [facility] odify By: carrie xiongunter DateTime : 08/27/19 17 01:30:00 PM Not Available Not Available Not Available metoprolo l tartrate 50 mg tablet TAKE 2 TABLETS BY MOUTH IN THE MORNING AND 1 TABLET IN THE EVENING 06/03 completed Not Available Not Available Not Available nitroglyc heath 0.4 mg sublingua l tablet DISSOLVE ONE TABLET UNDER TONGUE NEEDED FOR CHEST PAIN MAY REPET DOSE EVERY 5 MINUTES UP TO 3 DOSES 07/24 completed Not Available Not Available Not Available hydrocort isone 2.5 % topical cream 07/29 completed Not Available Not Available Not Available mupirocin 2 % topical ointment APPLY TOPICALL Y TO THE AFFECTED AREA THREE TIMES DAILY 12/11 completed Not Available Not Available Not Available metoprolo l succinate ER 25 mg tablet,ex tended release 24 hr take 1 tablet by oral route every day 11/20 completed Prescrib ed Elsewher e: Yes [facility] odify By: amkkayden Barroso ncounter DateTime : 06/12/19 13 09:30:00 AM Not Available Not Available Not Available hydroxych loroquine 200 mg tablet TAKE 2 TABLETS BY MOUTH DAILY active Not Available Not Available No t Available albuterol sulfate HFA 90 mcg/actua tion aerosol inhaler INHALE 2 PUFFS BY MOUTH EVERY 6 HOURS NEEDED FOR COUGH 09/05 completed Not Available Not Available Not Available Prozac 10 mg capsule take 2 capsule by oral route every day 08/14 completed Prescrib ed Elsewher e: Yes Loca tion: Cleopatra barroso [facility] odify By: carrie [email or web address] DateTime : 04/25/20 17 02:00:00 PM Not Available Not Available Not Available Vitamin D2 1,250 mcg (50,000 unit) capsule take 1 capsule by oral route every week 09/02 completed Prescrib ed Elsewher e: Yes Loca tion: [facility] odify By: carley gar DateTime : 03/25/20 15 02:15:00 PM Not Available Not Available Not Available Terazol 7 0.4 % vaginal cream insert 1 applicat orful by vaginal route every day for 7 days at bedtime 08/11 completed Prescrib ed Elsewher e: No Locat ion: Cleopatra barroso [facility] odify By: cmedical Encount er DateTime : 08/06/19 12 10:12:32 AM Not Available Not Available Not Available fluoxetin e 20 mg capsule TAKE 1 CAPSULE BY MOUTH DAILY active Not Available Not Available No t Available Robaxin 100 mg/mL injection solution inject 10 millilit er by intramus cular route every 8 hours as needed 06/12 completed Prescrib ed Elsewher e: Yes Loca tion: Cleopatra barroso [facility] odify By: jenae ortega DateTime : 06/22/19 12 05:15:00 PM Not Available Not Available Not Available amoxicill in 875 mg-potass ium clavulana te 125 mg tablet TAKE 1 TABLET BY MOUTH EVERY 12 HOURS 09/05 completed Not Available Not Available Not Available amoxicill in 500 mg-potass ium clavulana te 125 mg tablet TAKE 1 TABLET BY MOUTH EVERY 12 HOURS WITH FOOD 07/24 completed Not Available Not Available Not Available bupropion HCl SR 200 mg tablet,12 hr sustained -release TAKE 1 TABLET BY MOUTH TWICE DAILY 09/05 completed Not Available Not Available Not Available Xyrem 500 mg/mL oral solution take 4.5 millilit er by oral route 2 times every day diluted in 2 ounces of water in dosing cups provided at bedtime and 2.5-4 hours later while sitting in bed 07/29 completed Prescrib ed Elsewher e: Yes Loca tion: Cleopatra barroso [facility] odify By: carley gar DateTime : 09/03/19 18 01:00:00 PM Not Available Not Available Not Available cyclobenz aprine 5 mg tablet TAKE 1 TABLET BY MOUTH TWICE DAILY NEEDED FOR MUSCLE SPASM 09/05 completed Not Available Not Available Not Available Azasan 75 mg tablet take 1 tablet by oral route every day 06/22 completed Prescrib ed Elsewher e: Yes Loca tion: Cleopatra barroso [facility] odify By: adarsh ortega DateTime : 02/04/20 11 02:45:00 PM Not Available Not Available Not Available metoprolo l tartrate 25 mg tablet TAKE 1 TABLET BY MOUTH TWICE DAILY active Not Available Not Available No t Available Tindamax 500 mg tablet take 2 tablet by oral route every 5 days with food 09/14 completed Prescrib ed Elsewher e: No Locat ion: Cleopatra barroso [facility] odify By: moisés Encount er DateTime : 09/14/19 14 12:18:10 PM Not Available Not Available Not Available chlorhexi dine gluconate 0.12 % mouthwash SWISH 15 MLS BY MOUTH TWICE DAILY 07/24 completed Not Available Not Available Not Available Vitamin D3 10 mcg (400 unit) capsule 06/22 completed Prescrib ed Elsewher e: Yes Loca tion: Cleopatra barroso [facility] odify By: adarsh ortega DateTime : 02/04/20 11 02:45:00 PM Not Available Not Available Not Available cyclobenz aprine ER 15 mg capsule,e xtended release 24 hr take 1 capsule by oral route every day 06/22 completed Prescrib ed Elsewher e: Yes Loca tion: Cleopatra barroso [facility] odify By: adarsh ortega DateTime : 02/04/20 11 02:45:00 PM Not Available Not Available Not Available Amitiza 8 mcg capsule take 1 capsule by oral route 2 times every day with food and water 06/12 completed Prescrib ed Elsewher e: Yes Loca tion: Cleopatra barroso [facility] odify By: jenae ortega DateTime : 06/22/19 12 05:15:00 PM Not Available Not Available Not Available Vitamin D-3 with Aloe 120 mg-1,000 unit-10 mg tablet 07/29 completed Prescrib ed Elsewher e: Yes Loca tion: Cleopatra barroso [facility] odify By: carrie Barroso ncounter DateTime : 08/15/19 19 03:30:00 PM Not Available Not Available Not Available Linzess 145 mcg capsule take 1 capsule by oral route every day on an empty stomach at least 30 minutes before 1st meal of the day 07/29 completed Prescrib ed Elsewher e: Yes Loca tion: Cleopatra barroso [facility] odify By: carley Barroso ncounter DateTime : 09/03/19 18 01:00:00 PM Not Available Not Available Not Available Linzess 290 mcg capsule TAKE 1 CAPSULE BY MOUTH DAILY 12/11 completed Not Available Not Available Not Available Nuvessa 1.3 % (65 mg/5 gram) vaginal gel insert 1 applicat orful by vaginal route once at bedtime 02/14 completed Prescrib ed Elsewher e: No Locat ion: Cleopatra barroso [facility] odify By: pierce ortega DateTime : 08/18/19 19 10:44:12 AM Not Available Not Available Not Available Benlysta 200 mg/mL subcutane ous auto-inje ctor 07/29 completed Not Available Not Available Not Available Kapspargo Sprinkle 25 mg capsule,e xtended release 02/14 completed Prescrib ed Elsewher e: Yes Loca tion: Cleopatra barroso [facility] odify By: pierce ortega DateTime : 08/15/19 19 03:30:00 PM Not Available Not Available Not Available Sunosi 75 mg tablet 06/03 completed Not Available Not Available Not Available ID NOW COVID-19 Test Kit TEST DIRECTED TODAY 07/24 completed Not Available Not Available Not Available COVID-19 test specimen collectio n TEST DIRECTED 07/24 completed Not Available Not Available Not Available Vitals Date Recorded Body height Body mass index (BMI) Body weight Systolic And Diastolic Provider Name and Address Organization Details Last Updated DateTime 06/03/2021 167.64 cm 32.3 kg/m2 42368.47 g 106/72 mm[Hg] Candice Morfin [facility] 06/03/2021 10:09:44 Date Recorded Body height Body mass index (BMI) Body weight Systolic And Diastolic Provider Name and Address Organization Details Last Updated DateTime 06/26/2021 167.64 cm 32 kg/m2 80131.29 g 109/74 mm[Hg] Candice Morfin [facility] 06/26/2021 16:28:03 Date Recorded Body height Body mass index (BMI) Body weight Systolic And Diastolic Provider Name and Address Organization Details Last Updated DateTime 09/05/2024 167.64 cm 38.3 kg/m2 549683.11 g 109/75 mm[Hg] Radha Agudeloney [facility] 09/05/2024 14:52:38 Date Recorded Body height Body mass index (BMI) Body weight Systolic And Diastolic Provider Name and Address Organization Details Last Updated DateTime 10/15/2020 167.64 cm 33.6 kg/m2 33416.21 g 104/72 mm[Hg] Candice Morfin [facility] 10/15/2020 15:53:53 Date Recorded Body height Body mass index (BMI) Body weight Systolic And Diastolic Provider Name and Address Organization Details Last Updated DateTime 12/11/2021 167.64 cm 33.1 kg/m2 67632.44 g 109/73 mm[Hg] Candice Morfin [facility] 12/11/2021 12:23:33 Social History Question Answer Notes LastModified by Organizat ion Details LastModified Time Tobacco Smoking Status Former Smoker Candice casas [facility] 12/21/2019 10:24:42 If You Are , What Was Your Level Of Alcohol Consumption Prior To ? None [email or web address] Information not available 07/29/2020 Are You Blind Or Do You Have Difficulty Seeing? No [email or web address] Information not available 07/29/2020 What Is Your Level Of Caffeine Consumption? Occasional [email or web address] Information not available 07/29/2020 In The 14 Days Before Symptom Onset, Have You Had Close Contact With A Laboratory-confir med COVID-19 While That Case Was Ill? No [email or web address] Information not available 07/29/2020 In The 14 Days Before Symptom Onset, Have You Had Close Contact With A Person Who Is Under Investigation For COVID-19 While That Person Was Ill? No [email or web address] Information not available 07/29/2020 Have You Been To An Area Known To Be High Risk For COVID-19? No [email or web address] Information not available 07/29/2020 Are You Deaf Or Do You Have Serious Difficulty Hearing? No [email or web address] Information not available 07/29/2020 What Type Of Diet Are You Following? REGULAR [email or web address] Information not available 07/29/2020 What Was The Date Of Your Most Recent Tobacco Screening? 12/11/2021 [email or web address] Information not available 12/11/2021 Have You Ever Been Counseled For Unhealthy Alcohol Use? No [email or web address] Information not available 07/29/2020 Do You Use Your Seat Belt Or Car Seat Routinely? Yes [email or web address] Information not available 07/29/2020 Do You Have Smoke And Carbon Monoxide Detectors In Your Home? Yes [email or web address] Information not available 07/29/2020 How Much Tobacco Do You Smoke? No [email or web address] Information not available 12/21/2019 Do You Use Sunscreen Routinely? Yes Information not available 07/29/2020 Do You Have Difficulty Walking Or Climbing Stairs? No [email or web address] Information not available 06/26/2021 Sex: Unknown Functional Status Question Answer Note LastModified by Organizat ion Details LastModified Time Do you use any illicit or recreational drugs? No [email or web address] Information not available 07/29/2020 Do you or have you ever used any other forms of tobacco or nicotine? No [email or web address] Information not available 07/29/2020 What is your level of alcohol consumption? Occasional [email or web address] Information not available 07/29/2020 Do you or have you ever used smokeless tobacco? Never used smokeless tobacco [email or web address] Information not available 12/21/2019 Are you able to walk? YESWOREST [email or web address] Information not available 07/29/2020 Are you able to care for yourself? Yes [email or web address] Information not available 06/26/2021 Do you have difficulty dressing or bathing? No [email or web address] Information not available 06/26/2021 Do you or have you ever used e-cigarettes or vape? Never used electronic cigarettes [email or web address] Information not available 12/21/2019 What is your exercise level? Occasional [email or web address] Information not available 12/21/2019 Mental Status Question Answer Note LastModified by Organization D etails LastModified Time Do you feel stressed (tense, restless, nervous, or anxious, or unable to sleep at night)? [id number] [email or web address] Information not available 07/29/2020 Family History Relationship Description Onset Age of this Age Resolved Age Notes LastModified by Organization Details LastModified Time Father Hypertensive disorder Not available 12/19 23:17:33 Mother Hypertensive disorder [email or web address] Not available 12/19 23:17:33 Mother Disorder of thyroid gland [email or web address] Not available 12/19 23:17:57 Mother Malignant neoplasm of lung [email or web address] Not available 12/20 10:25:51 Mother Primary malignant neoplasm of bone 57 [email or web address] Not available 07/29 14:45:16 Sister Hypertensive disorder [email or web address] Not available 12/19 23:17:33 Sister Disorder of thyroid gland [email or web address] Not available 12/19 23:17:57 Sister Asthma [email or web address] Not available 12/20/2019 23:18:08 Maternal Grandmother Malignant tumor of colon 55 60 [email or web address] Not available 07/29 14:44:33 Paternal Uncle Malignant neoplasm of lung [email or web address] Not available 12/20 10:25:51 Paternal Grandfather Malignant neoplasm of urinary bladder [email or web address] Not available 12/20 10:26:13 Notes:Father: Hypertension M aternal grandmother: Cancer, colon Mother: Hypertension, Thyroid disease Sister: Thyroid disease, Hypertension, Asthma Medical History Condition Response Allergies (Food, seasonal, environmental ) Y Other Y Breast Cancer N Drug/Latex Allergies/Reactions N Blood Transfusion N Dermatologic Disorders N Lung Disease N Defects or Inherited Disease N Breast Problem N Gestational Diabetes N Hematologic disorders N Anesthesia Complications N History of STI Y Deep Vein Thrombosis N Polycystic ovary syndrome N Anxiety Disorder Y Autoimmune disease Y Arthritis Y Infertility N Polyps N Acid Reflux (GERD) Y History of abnormal pap Y Cancer N Stroke N Varicosities N Neurologic/Epilepsy Y Endometriosis N High Cholesterol N Headaches Y Fibromyalgia Y Kidney Disease N Heart Problems Y Kidney or Bladder Problems N Thyroid Problems N GI Problems Y Eating Disorder N Anemia N Art (IVF or FET) N Psychiatric Illness N Ovarian Cancer N Diabetes N Pulmonary (TB, Asthma) N Hepatitis/Liver Disease N No Past Medical History N Eczema N Urinary Tract Infection N Abuse/Domestic Violence N Asthma N Trauma/Violence N Depression/ depression Y Heart Disease N Pre-Eclampsia N Hypertension Y Osteoporosis N Thrombophilias N Gynecological History Statement/Question Response Abnormal Pap Y Flow Moderate Date of LMP 08/24/2024 Was last menstrual period normal Y STIs/STDs Y HPV Vaccine N Colposcopy 02/14/2019 Duration of Flow (days) 7 Current Control Method Condoms Are cycles usually normal Y Date of Last Colonoscopy Frequency of Cycle (Q days) 28 Sexually Active? N Menses Monthly Y Date of DEXA bone scan Date of Last Pap Smear 12/11/2021 Desired Control Method LMP Approximate 03/17/2019 Obstetrics History GPAL:G 1 P 0 1 0 1 Type Value Premature 1 Living 1 Total 1 Past Encounters Encounter ID Performer Location Encounter Start Date Encounter Closed Date Diagnosis/Indication Diagnosis SNOMED-CT Code Diagnosis ICD10 Code Diagnosis Note [id number] Vivian Brooks CNM [facility] [address],[facility] [place] [address] 12/21/2019 09:59:52 12/21/2019 10:39:21 Abnormal cervical Papanicolaou smear [id number] R87.619 [id number] Vivian Brooks CNM [facility] [address],[place] [address] 07/29/2020 12:44:00 07/29/2020 22:17:53 Gynecologic examination 75997613 Z01.419 [id number] Vivian Brooks [facility] [address],[place] [address] 10/15/2020 15:40:33 10/15/2020 16:19:26 Vaginitis 07004190 N76.0 [id number] Vivian Brooks [facility] [address],[place] [address] 06/03/2021 09:49:19 06/03/2021 11:19:21 Vaginitis 04221306 N76.0 [id number] Vivian Brooks [facility] [address],[place] [address] 06/26/2021 16:15:18 06/26/2021 17:03:20 Bacterial vaginosis 090718278 N76.0 [id number] Vivian Brooks [facility] [address],[place] [address] 12/11/2021 12:13:09 12/11/2021 12:56:37 Gynecologic examination [id number] Z01.419 [id number] LUCHO Clarke [facility] [address],[place] [address] 09/05/2024 14:17:50 09/05/2024 16:34:54 Gynecologic examination 41697445 Z01.419 WWEB - condomsPap - done todaySTI screen - declinedMa mmogram - order givenColon cancer screening - n/aRoutine labs - PCPRTC in 1 yr or sooner if needed Suggested Calcium with Vitamin D daily. Patient advised to get an annual flu shot in the fall and she could obtain at local pharmacy. Also to obtain TDap vaccinatio n if you have not had one in the last 10 years. Recommend yearly mammograms . Encouraged monthly self breast exams. Encourage safe sexual practices, to use condoms and limit partners if not already in a monogamous relationsh ip. Engage in regular exercise. Avoid tobacco and illicit drugs. This lifestyle behavior pattern will lead to less health conditions and longer life span. If BMI greater than 25 dietary consult advised. All questions have been answered. Screening mammography 24 733486 Z12.31 Female hirsutism [id number] 9 L68.0 labs orderedabelardoi maurizio discussed available management options pending results Health Concerns Section Related Observation LastModified by Organization Detai ls LastModified Time None Recorded Concern Status LastModified by Organization Details LastModified Time None Recorded Advance Directives Directive None Recorded Payers Insurance Date Sequence Insurance Name Policy Number Policy Thomas Covered Member ID Thomas Member ID Guarantor Name 09/02/2024 1 [place] Alberto Ponce [id number] 09/06/2024 2 [place] [employer] Alberto Rivera Kris [id number] Notes Date Note Type Note Provider Name and Address Organization Details Recorded Time 10/15/2020 text/html hx bv infections , never really seem to go away for long, mostky odor, some d/c, will plan extended panel Vivian Brooks CNM [address], [place], [address], [facility] 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 06/03/2021 11:19:35 06/26/2021 text/html Vaginal/Vulvar ProblemReported bypatient.Notes:sxs got a little better last month after tx, but came back boric acid not helpful, bag d/c with odor Vivian Brooks CNM [address], [place], [address], [facility] 07/01/2021 09:43:37 12/11/2021 text/html Annual GYNReport ed bypatient.Menstrual cycle:Normal menses Urinary symptoms:No hematuria; No incontinence Vulva:No genital lesion Vagina:Normal vaginal discharge Breast:No breast pain; No breast lump; No nipple discharge Psychological symptoms:No depression; No anxiety; No PMDD Preventive measures:Encourage self breast examination; Encourage regular exercise; Encourage no tobacco use; Encourage regular mammograms starting age 40Notes:inflammatory markers are down, daughter had knee surgery, broke tooth, cycles regular, increased weight gain Vivian Brooks CNM [address], [place], [address], [facility] 12/11/2021 12:47:59 09/05/2024 text/html Annual GYNReport ed bypatient.Menstrual cycle:Normal menses Urinary symptoms:No hematuria; No incontinence Vulva:No genital lesion Vagina:Normal vaginal discharge Breast:No breast pain; No breast lump; No nipple discharge Current Contraception:Satisf ied with current contraception; Condoms Sexual complaints:No sexual complaints; No pain during intercourse; Normal libido Menopausal Symptoms:No menopausal symptoms; Normal vaginal lubrication Psychological symptoms:No depression; No anxiety; No PMDD Preventive measures:Encourage self breast examination; Encourage regular exercise; Encourage no tobacco use; Encourage regular mammograms starting age 40Notes:39yo wweBC - condomslast pap 2021 wnl + unwanted hairgrowth on chin and chest LUCHO Clarke [address], [place], [address], [facility] 09/06/2024 10:00:00 OBGyn Episode Ob Episode Information Episode Created Date Number of Fetuses Patient Bloodtype Patient rh Status Prepregnancy Weight lbs Domestic Partner Domestic Partner Phone Father Name Lock Setter Status 12/21/19 20 1 CLOSED Fetus Data First Name Last Name Admitted to NICU Weight (g) Sex Living Outcome Pediatric Complications Fetus ID Race Codes Race Delivery Type 821.908 704 F Prematur e 3772 Primary Trey Calculation Initial Trey Date Initial Exam Date Initial Exam Provider Initial Ultrasound Date Last Menstrual Period Date Ultra Sound Weeks Gestation 0 Eighteen To Twenty Week Trey Update Ultra Sound Date Fundal Height At Umbil Quickening Date Ultra Sound Latest Weeks Gestation Final Trey Confirmed By Final Trey Confirmed Date Final Trey Date Ultra Sound Latest Days Gestation 0 0 Menstrual History Last Menstrual Date Menses Monthly On Bcp Conception Prior Menses Frequency Hcg Plus Date Menarche Onset Age Delivery Information Delivery Date Delivery Type Labor Anesthesia Weeks Gestation Incision Type Labor Labor Length Hrs Delivered By Post Complications Tubal Sterilization Discharge Date Comments 7 27 true patient was transferr ed to [place] with [facility] Discharge Information Feeding Method Contraceptive Method Maternal HG B and HCT Levels
[2024-11-27 17:15] LABS: Hematocrit 39.8 % (37.0-47.0); Hemoglobin 13.4 g/dL (12.0-15.0); Mean Corpuscular HGB Conc 33.7 g/dl (32-36); Mean Corpuscular Hemoglobin 29.4 pg (26-34); Mean Corpuscular Volume 87.3 fl (80-100); Platelet Count Result 367 k/mm3 (150-375); Red Blood Count 4.56 M/mm3 (4.2-5.4); White Blood Count 7.6 K/mm3 (4.5-10.0)
[2024-11-27 17:19] LABS: Add Urine Microscopic? NO; Appearance Urine Clear (Clear); Glucose Urine UA Negative (Negative); Leukocyte Esterase Ur Negative LEU/UL (Negative); Nitrate Urine Negative (Negative); Specific Grav Ur 1.022 (1.001-1.035)
[2024-11-27 17:40] LABS: Hemoglobin A1C 5.5 % (<5.7)
[2024-11-27 17:48] LABS: Alanine Aminotransferase 26 U/L (6-35); Albumin Level 4.4 g/dL (3.5-5.1); Alkaline Phosphatase 69 U/L (38-126); Anion Gap 8 mmol/L (4-12); Aspartate Amino Transferase 31 U/L (14-36); Bilirubin,Total 0.4 mg/dL (0.2-1.3); Blood Urea Nitrogen 14 mg/dL (7-17); Calcium 9.3 mg/dL (8.4-10.2); Carbon Dioxide 26 mmol/L (22-30); Chloride 102 mmol/L (98-107); Cholesterol 207 mg/dL (0-200); Estimated Glomerular Filt Rate > 60; Glucose 95 mg/dL (65-110); HDL Direct 40 mg/dL; Potassium 4.0 mmol/L (3.4-5.0); Sodium 136 mmol/L (137-145); Total Protein 7.8 g/dL (6.3-8.2); Triglycerides 137 mg/dL (<150)
== END 2024-11-27 16:08 | disposition home or self-care (01) ==
PROVIDERS: PCP Nurse Practitioner Family; Visit Provider Nurse Practitioner Family
DX: R30.0 Dysuria (principal); F41.8 Other specified anxiety disorders; F45.21 Hypochondriasis; I10 Essential (primary) hypertension; R00.2 Palpitations; E78.2 Mixed hyperlipidemia; Z68.38 Body mass index [BMI] 38.0-38.9, adult; K58.1 Irritable bowel syndrome with constipation; M32.9 Systemic lupus erythematosus, unspecified; M35.00 Sjogren syndrome, unspecified; G47.411 Narcolepsy with cataplexy; Z13.1 Encounter for screening for diabetes mellitus
CPT/HCPCS: 36415; 80053; 80061; 81003; 83036; 85027; 87086

== ENCOUNTER 2024-12-08 19:47 | Emergency (ER) | payer MEDICARE, MEDICAID, SELFPAY ==
--- OUTSIDE RECORDS SUMMARY | 2024-12-08 19:50 | XMS_ITS | Referral Summary ---
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 Gender Identity Not on file Sexual Orientation Not on file Last Filed Vital Signs Vital Sign Reading Time Taken Comments Blood Pressure 125/78 07/05/2024 3:49 PM TRIMMER HELPER Pulse 77 07/05/2024 3:49 PM TRIMMER HELPER Temperature 36.9 C (98.4 F) 07/05/2024 3:49 PM TRIMMER HELPER Respiratory Rate 18 12/17/2022 9:53 AM CDT Oxygen Saturation 97% 03/20/2024 1:58 PM TRIMMER HELPER Inhaled Oxygen Concentration - - Weight 107.3 kg (236 lb 9.6 oz) 07/05/2024 3:49 PM TRIMMER HELPER Height 165.1 cm (5' 5) 07/05/2024 3:49 PM TRIMMER HELPER Body Mass Index 39.37 07/05/2024 3:49 PM TRIMMER HELPER Plan of Treatment Not on file Procedures Procedure Name Priority Date/Time Associated Diagnosis Comments HEPATITIS C ANTIBODY Routine 10/13/2018 2:02 PM CDT from Last 3 Months or Most Recently Relevant to Health Maintenance Results * Hepatitis C antibody (10/13/2018 2:02 PM CDT) Hep C Ab Non-Reactiv e Non-Reactiv e [facility] Blood specimen (specimen) 10/13/2018 2:02 PM CDT 10/13/2018 4:07 PM CDT Narrative [facility] - 10/13/2018 6:55 PM CDT us Sarika Garg MD LAB MICROBIOLOGY - GENERAL ORDER JUAN DAVID Final [facility] [address] Department [place] [address] from Last 3 Months or Most Recently Relevant to Health Maintenance Insurance MEDICARE [place] MEDICARE [place] MEDICARE [place] Advance Directives For more information, please contact: [phone] * Full Code (Latest Code Status on File) Date Activated Date Inactivated Comments 12/28/2021 11:29 AM 12/28/2021 5:57 PM * Full Code Date Activated Date Inactivated Comments 12/28/2021 11:29 AM 12/28/2021 11:29 AM * Full Code Date Activated Date Inactivated Comments 01/09/2019 12:38 PM 01/09/2019 5:59 PM * Full Code Date Activated Date Inactivated Comments 01/09/2019 12:37 PM 01/09/2019 12:38 PM Care Teams Sheet Taker Relationship Specialty Start Date End Date Alisha Lal NP [address] [place], [place] [id number] PCP - General Family Medicine 03/29/24
--- OUTSIDE RECORDS SUMMARY | 2024-12-08 19:50 | XMS_ITS | Encounter Summary ---
Author Organization [facility] Address [address] [place] [address] Care Team Providers Care Automatic Edger Name Role Phone Erwin Arriaga MD Primary Care Provider [phone] Alisha Lal NP Primary Care Provider [phone] Encounter Details Date Type Department Care Team (Late st Contact Info) Description 02/14/2020 Telephone [facility] [address] [place] [id number] Contreras Giron, RT Social History Tobacco Use Types Packs/Day Years Used Date Smoking Tobacco: Former Smokeless Tobacco: Never Alcohol Use Standard Drinks/Week Comments No 0 (1 standard drink = 0.6 oz pur e alcohol) PHQ-2 Answer Date Recorded PHQ-2 Score 0 02/08/2019 Comments No Sex and Gender Information Value Date Recorded Sex Assigned at Not on file 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
--- OUTSIDE RECORDS SUMMARY | 2024-12-08 19:50 | XMS_ITS ---
[facility] Address [address] [facility] [address] [place] [address] Care Team Providers Care Grounds Maintenance Manager Name Role Phone Forest Sarika Primary Care Provider [phone] REASON FOR VISIT establish care Encounters Encounter Location Date Provider Diagnosis [facility] [address] [facility] [facility] [address] [place] [address] 08/31/2023 Sarika Gibson Plan Of Treatment No Information Progress Notes * Alberto GONZALES LDOB:1985 (39 yo F)Acc No.[id number]:08/31/2023 Progress Notes Patient: Alberto AMAYA Appointment Provider: Dorie GIBSON MD :1985 A ge:38 Y S ex:Female Date:08/31/2023 Address:[address] Subjective: * Chief Complaints: * 1 . Establish care. * Medical History: Objective: * Vitals: Assessment: Plan: * Treatment: * Billing Information: * Visit Code: * Procedure Codes: * Electronic signature of Sarika Gibson MD on 12/08/2024 at 07:50 PM CDT Sign off status: Pending * Appointment Provider: Dorie GIBSON MD Date: 08/31/2023 Generated for Maddi mathew/Mabel/eTsiva on: 12/08/2024 07:50 PM CDT
--- OUTSIDE RECORDS SUMMARY | 2024-12-08 19:50 | XMS_ITS ---
Author Organization [facility] Address [facility] [address] [address] Care Team Providers Care Lower School Music Teacher Name Role Phone QuintinLissettAmy Unavailable [phone] Yvette Starkey Unavailable [phone] REASON FOR VISIT Patient rescheduled due to being sick and was not removed for today Social History Sex Assigned At : Social History Observation Description Sex Assigned At Female Encounters Encounter Location Date Provider Diagnosis [facility] [place] [address] [facility] [address] [address] 11/21/2024 Yvette Hunt Plan Of Treatment Next Appt Details Provider Name:Amy Ribeiro , 12/20/2024 01:00:00 PM, [address] [place] [address], [address], [address], Provider Name:Yvette Hunt, 12/26/2024 09:00:00 AM, [address] [place] [address], [address], Provider Name:Yvette Hunt, 01/09/2025 03:00:00 PM, [address] [place] [address], [address], Progress Notes * VIC GONZALES LDOB:1985 (39 yo F)Acc No.[id number]:11/21/2024 Patient: VIC AMAYA Provider: Ciara HUNT LCSW :1985 A ge:39 Y S ex:Female Date:11/21/2024 Address:[facility] [address], [facility] Data: * Chief Complaints: * 1 . Patient rescheduled due to being sick and was not removed for today. Assessment: Plan: * Treatment: * Billing Information: * Visit Code: * Procedure Codes: * Electronic signature of Eveline Hunt LCSW on 12/08/2024 at 07:49 PM CDT Sign off status: Pending Signatures: No Ad Hoc Signature Added * Provider: Ciara HUNT LCSW Date: 0 11/21/2024 Generated for Maddi mathew/Mabel/Patti on: 0 12/08/2024 07:49 PM CDT
--- OUTSIDE RECORDS SUMMARY | 2024-12-08 19:50 | XMS_ITS | Clinical Summary ---
Author Organization [facility] Address [address] [place] [address] Phone Care Team Providers Care Ticket Dispatcher Name Role Phone Erwin Arriaga MD Primary Care Provider [phone] Allergies No known active allergies Medications amLODIPine [...] Comments Blood Pressure 111/64 03/30/2022 4:37 PM NANOSYSTEMS ENGINEER Pulse 94 03/30/2022 4:37 PM NANOSYSTEMS ENGINEER Temperature 37.2 C (98.9 F) 03/30/2022 4:37 PM NANOSYSTEMS ENGINEER Respiratory Rate 16 03/30/2022 4:37 PM NANOSYSTEMS ENGINEER Oxygen Saturation 95% 03/30/2022 4:37 PM NANOSYSTEMS ENGINEER Inhaled Oxygen Concentration - - Weight 90.7 kg (200 lb) 03/30/2022 4:37 PM NANOSYSTEMS ENGINEER Height 165.1 cm (5' 5) 03/30/2022 4:37 PM NANOSYSTEMS ENGINEER Body Mass Index 33.28 03/30/2022 4:37 PM NANOSYSTEMS ENGINEER Plan of Treatment Health Maintenance Due Date [...] topic Insurance MEDICARE [place] Care Teams Ticket Dispatcher Relationship Specialty Start Date End Date Erwin Arriaga MD [address], [address] [place] [address] PCP - General Internal Medicine 05/10/21
--- OUTSIDE RECORDS SUMMARY | 2024-12-08 19:50 | XMS_ITS | Clinical Summary ---
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 Amin Assessment & Plan (09/26/2018 4:16 PM CDT): The dysphagia slowly progressive. No worrisome signs. It could be secondary to her rheumatic disease and Sjogren syndrome and lupus. We will schedule upper endoscopy. Continue Pepcid for the time being. Follow-up upper endoscopy as needed and depending on the findings. Surgical History Surgery Date Site/Laterality Comments OTHER [...] Never 03/20/2024 How often do you attend mormon or hindu serv ices? 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 Gender Identity Not on file Sexual Orientation Not on file Obstetrics History Last Filed Vital Signs Vital Sign Reading Time Taken Comments Blood Pressure 125/78 07/05/2024 3:49 PM CANCER RESEARCHER Pulse 77 07/05/2024 3:49 PM CANCER RESEARCHER Temperature 36.9 C (98.4 F) 07/05/2024 3:49 PM CANCER RESEARCHER Respiratory Rate 18 12/17/2022 9:53 AM CDT Oxygen Saturation 97% 03/20/2024 1:58 PM CANCER RESEARCHER Inhaled Oxygen Concentration - - Weight 107.3 kg (236 lb 9.6 oz) 07/05/2024 3:49 PM CANCER RESEARCHER Height 165.1 cm (5' 5) 07/05/2024 3:49 PM CANCER RESEARCHER Body Mass Index 39.37 07/05/2024 3:49 PM CANCER RESEARCHER Plan of Treatment Health Maintenance Due Date Last Done Comments Breast Cancer Screening-Mammogram 1984 Cervical Cancer Screening 1984 Varicella Vaccines (1 of 2 - 13+ 2-dose series) 1997 Hepatitis B Screening 2002 Regular Well Visit/Exam 18-64 2002 Pneumococcal vaccine <65 (1 of 2 - PCV) 2003 Zoster Vaccine (1 of 2) 2003 HPV Vaccines (1 - 3-dose SCDM series) 2011 Influenza Vaccine (#1) 2025 8, 03/17/2017, 03/12/2016 Depression Screening 03/20/2025 03/20/2024, 02/08/2019, 02/08/2019 DTaP/Tdap/Td Vaccine (2 - Td or Tdap) 11/11/202610/2016, 05/09/2006 Hepatitis C Screening Completed 10/13/2018, 017 Procedures Procedure Name Priority Date/Time Associated Diagnosis Comments HEPATITIS C ANTIBODY Routine 10/13/2018 2:02 PM CDT from Last 3 Months or Most Recently Relevant to Health Maintenance Results * Hepatitis C antibody (10/13/2018 2:02 PM CDT) Hep C Ab Non-Reactiv e Non-Reactiv e [facility] Blood specimen (specimen) 10/13/2018 2:02 PM CDT 10/13/2018 4:07 PM CDT Narrative [facility] - 10/13/2018 6:55 PM CDT Sarika Garg MD LAB MICROBIOLOGY - GENERAL ORDER JUAN DAVID Final Result [facility] [address] Department [place] [address] from Last 3 Months or Most Recently Relevant to Health Maintenance Insurance MEDICARE IDCT MEDICARE [facility] MEDICARE [place] Advance Directives For more information, please contact: [phone] * Full Code (Latest Code Status on File) Date Activated Date Inactivated Comments 12/28/2021 11:29 AM 12/28/2021 5:57 PM * Full Code Date Activated Date Inactivated Comments 12/28/2021 11:29 AM 12/28/2021 11:29 AM * Full Code Date Activated Date Inactivated Comments 01/09/2019 12:38 PM 01/09/2019 5:59 PM * Full Code Date Activated Date Inactivated Comments 01/09/2019 12:37 PM 01/09/2019 12:38 PM Care Teams Youth Development Specialist Relationship Specialty Start Date End Date Alisha Lal NP [address] [place], [place] [id number] PCP - General Family Medicine 03/29/24
--- OUTSIDE RECORDS SUMMARY | 2024-12-08 19:50 | XMS_ITS | Patient Health Record ---
Author Organization [facility] [employer] Address [address] [place] [address] Care Team Providers Care Manager Radiation Name Role Phone Amy Ribeiro Unavailable [phone] Yvette Starkey Unavailable [phone] Allergies No Known Allergies Results Component Value Reference Range Notes UDT Reviewed date:06/25/2024 01:23:24 PM Interpretation: Performing Lab: Notes/Report: THC NEG 0 - 50 ng/ml Cocaine NEG 0 - 300 ng/ml Amphetamine NEG 0 - 1000 ng/ml Buprenorphine (BUP) NEG 0 - 10 ng/ml Secobarbital (Bar) NEG 0 - 300 ng/ml Oxazepam (BZO) POS 0 - 300 ng/ml 8-gabxycjhcy-9,2-fdzxnpgs-4,3-diphenylpyrrolidine (ECTOR P) NEG 0 - 300 ng/ml Methamphetamine (MET) NEG 0 - 1000 ng/ml Methylenedioxymethamphetamine (MDMA) NEG 0 - 500 ng/ml Morphine (MOP 300/[id number]) NEG 0 - 300 ng/ml Methadone (MTD) NEG 0 - 300 ng/ml Phencyclidine (PCP) NEG 0 - 25 ng/ml Nortriptyline (TCA) NEG 0 - 1000 ng/ml Oxycodone NEG 0 - 300 ng/ml x NEG 0 - 300 ng/ml Reason For Referral No Information Medications Medication SIG (Take, Route, Frequency, Duration) Notes Start Date End Date Status Chlorhexidine Gluconate 0.12% Mouth/Throat 08/23/2023 Not-Taking Sunosi 75 MG Oral 08/23/2023 Not-Ta batsheva amLODIPine Besylate 5 MG Oral 08/23/2023 Active [...] Active metroNIDAZOLE 500 MG Oral 08/23/2023 Not-Taking Fluconazole 150 MG Oral 08/23/2023 Not-Taking Triamcinolone Acetonide 0.1 % Mouth/Throat 08/23/2023 Not-Taking Venlafaxine HCl ER 75 MG Oral 08/23/2023 Not-Taking Immunizations Vaccine Route [...] smoker Non smoker Non smoker Non smoker Non smoker Problems Problem Type SNOMED Code ICD Code Onset Dates Problem Status W/U Status Risk Notes Problem Moderate recurrent major depression (73425720) Major depressive disorder, recurrent, moderate (F33.1) 4 Active confirmed Problem Generalized anxiety disorder (42246395) Generalized anxiety disorder (F41.1) 4 Active confirmed Problem Post-traumatic stress disorder (63217658) Post-traumatic stress disorder, unspecified (F43.10) 1 Active confirmed Problem Insomnia disorder related to another mental disorder (34121832) Insomnia due to other mental disorder (F51.05) 4 Active confirmed Problem Narcolepsy without cataplexy (51359299172285) 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) 4 Active confirmed Problem Long-term current use of drug therapy (777035791) Other intermediate designer (current) drug therapy (Z79.899) 4 Active confirmed Vital Signs Heart Rate 79 /min 09/21/2024 Respiratory Rate 16 /min 09/21/2024 Blood pressure diastolic 75 mm Hg 09/21/2024 Height-cm 165.10 cm 09/21/2024 Weight-kg 107.5 kg 09/21/2024 Height 65.00 in 09/21/2024 Blood pressure systolic 107 mm Hg 09/21/2024 Weight 237 lbs 09/21/2024 BMI 39.43 kg/m2 09/21/2024 Encounters Encounter Location Date Provider Diagnosis [employer] [address] [facility] [address] [place] [address] 02/21/2024 Amy Ribeiro [facility] [employer] [facility] [address] [facility] [address] [place] [address] 03/01/2024 Amy Ribeiro Major depressive disorder, recurrent, moderate F33.1 ; Generalized anxiety disorder F41.1 ; Insomnia due to other mental disorder F51.05 ; Post-traumatic stress disorder, unspecified F43.10 ; Narcolepsy without cataplexy G47.419 and Other senior living (current) drug therapy Z79.899 [employer] [address] [address] 06/25/2024 Amy Ribeiro Major depressive disorder, recurrent, moderate F33.1 ; Generalized anxiety disorder F41.1 ; Insomnia due to other mental disorder F51.05 ; Post-traumatic stress disorder, unspecified F43.10 ; Narcolepsy without cataplexy G47.419 and Other intermediate designer (current) drug therapy Z79.[address] [address] 09/06/2024 Yvette Young Major depressive disorder, recurrent, moderate F33.1 ; Post-traumatic stress disorder, unspecified F43.10 ; Generalized anxiety disorder F41.1 and Encounter for screening for depression Z13.[address] [address] 09/21/2024 Amy Ribeiro Encounter for screening for depression Z13.31 ; Major depressive disorder, recurrent, moderate F33.1 ; Generalized anxiety disorder F41.1 ; Insomnia due to other mental disorder F51.05 ; Post-traumatic stress disorder, unspecified F43.10 ; Narcolepsy without cataplexy G47.419 ; Other senior living (current) drug therapy Z79.899 and Encounter for screening for cardiovascular disorders Z13.[address] [address] 10/23/2024 Yvette Young Major depressive disorder, recurrent, moderate F33.1 ; Generalized anxiety disorder F41.1 ; Post-traumatic stress disorder, unspecified F43.10 and Encounter for screening for depression Z13.[address] [address] 11/07/2024 Yvette Young Major depressive disorder, recurrent, moderate F33.1 ; Generalized anxiety disorder F41.1 ; Post-traumatic stress disorder, unspecified F43.10 and Encounter for screening for depression Z13.[address] [address] 12/05/2024 Yvette Young Major depressive disorder, recurrent, moderate F33.1 ; Generalized anxiety disorder F41.1 and Encounter for screening for depression Z13.[address] [place] [address] 06/26/2024 Yvette Young [facility] [employer] [facility] [address] [place] [address] 06/23/2024 Amy Ribeiro [facility] [employer] [facility] [address] [place] [address] 09/17/2024 Amy Quintin Generalized anxiety disorder F41.1 Assessments Encounter Date Diagnosis (ICD Code) Assessment Notes Treatment Notes Treatment Clinical Notes Section Notes 12/05/2024 Major depressive disorder, recurrent, moderate (ICD-10 - F33.1) 12/05/2024 Generalized anxiety disorder (ICD-10 - F41.1) 09/06/2024 Major depressive disorder, recurrent, moderate (ICD-10 - F33.1) 11/07/2024 Major depressive disorder, recurrent, moderate (ICD-10 - F33.1) 11/07/2024 Generalized anxiety disorder (ICD-10 - F41.1) 10/23/2024 Major depressive disorder, recurrent, moderate (ICD-10 - F33.1) 10/23/2024 Generalized anxiety disorder (ICD-10 - F41.1) 09/06/2024 Post-traumatic stress disorder, unspecified (ICD-10 - F43.10) 09/21/2024 Major depressive disorder, recurrent, moderate (ICD-10 [...] drug therapy 09/21/2024 Encounter for screening for depression (ICD-10 [...] 5. Long-term current use of drug therapy 09/17/2024 Generalized anxiety disorder (ICD-10 - F41.1) 06/25/2024 Major depressive disorder, recurrent, moderate (ICD-10 [...] Long-term current use of drug therapy 03/01/2024 Major depressive disorder, recurrent, moderate (ICD-10 [...] Long-term current use of drug therapy 06/25/2024 Generalized anxiety disorder (ICD-10 - F41.1) [...] Long-term current use of drug therapy 09/21/2024 Generalized anxiety disorder (ICD-10 - F41.1) [...] Long-term current use of drug therapy 10/23/2024 Post-traumatic stress disorder, unspecified (ICD-10 - F43.10) 11/07/2024 Post-traumatic stress disorder, unspecified (ICD-10 - F43.10) 09/06/2024 Generalized anxiety disorder (ICD-10 - F41.1) 12/05/2024 Encounter for screening for depression (ICD-10 - Z13.31) 10/23/2024 Encounter for screening for depression (ICD-10 - Z13.31) 03/01/2024 Insomnia due to other mental disorder [...] Long-term current use of drug therapy 09/21/2024 Insomnia due to other mental disorder [...] 5. Long-term current use of drug therapy 11/07/2024 Encounter for screening for depression (ICD-10 [...] for screening for depression (ICD-10 - Z13.31) 06/25/2024 Post-traumatic stress disorder, unspecified (ICD-10 - [...] current use of drug therapy 09/21/2024 Other intermediate designer (current) drug therapy (ICD-10 - Z79.899) Medication [...] current use of drug therapy 06/25/2024 Other intermediate designer (current) drug therapy (ICD-10 - Z79.899) Medication [...] current use of drug therapy 03/01/2024 Other senior living (current) drug therapy (ICD-10 - Z79.899) Medication [...] - Plan: - Coordinate care with new slagger to ensure comprehensive pain management - Explore [...] Alberto's daughter in future sessions as appropriate. 12/05/2024 Other Alberto presented with concerns about tolerating disrespectful treatment from others, including family members, and potential housing issues due to an unresponsive landlord. Interpersonal difficulties and self-esteem issues Assessment: Alberto reports a pattern of allowing others to treat her disrespectfully, which appears to stem from early experiences with her mother. She identifies multiple instances of tolerating poor treatment from various individuals in her life. This behavior suggests underlying self-esteem issues and potential difficulties with assertiveness and boundary-setting. The patient's family dynamics, particularly accusations of substance abuse, may be contributing to her interpersonal challenges and self-perception. Plan: - Initiated EMDR treatment planning and history-taking process - Continue exploring instances of disrespectful treatment to identify patterns and triggers - Focus on developing assertiveness skills and healthy boundary-setting techniques Housing instability Assessment: Alberto reports potential housing instability due to her landlord's failure to address necessary repairs in her [address] 8 housing apartment. This situation may exacerbate her stress levels and contribute to her overall mental health concerns. The threat of having to move adds an additional layer of uncertainty and potential anxiety to her current circumstances. Plan: - Explore resources and support services available for Section 8 housing tenants - Discuss strategies for effectively communicating with landlord and housing authorities - Monitor impact of housing situation on overall mental health and adjust treatment plan as needed Plan Of Treatment Next Appt Details Provider Name:Amy Quintin , 12/20/2024 01:00:00 PM, [address], [facility] [address], [place], [address], Provider Name:Yvette Young, 12/26/2024 09:00:00 AM, [address], [address], [place], [address], Provider Name:Yvette Young, 01/09/2025 03:00:00 PM, [address], [address], [place], [address], Insurance Providers Payer Name Payer Address Payer Phone Subscriber Number Group Number Insured Name Patient Relationship to Insured Coverage Start Date Coverage End Date Medicare-I l Medicare [address] [place] [phone] [id number] ALBERTO GONZALES Self - patient is the insured Medicaid-I l Medicaid [address] [address] [place] [address] [id number] ALBERTO GONZALES Self - patient is the [...]
--- OUTSIDE RECORDS SUMMARY | 2024-12-08 19:50 | XMS_ITS | Patient Health Record ---
Author Organization [facility] Address [address] [facility] [address] [place] [address] Care Team Providers Care Stockkeeper Name Role Phone Sarika Garg Primary Care Provider [phone] Allergies No Known Allergies Reason For [...] Date Coverage End Date Medicare [address] [address] [place] [address] [id number] Alberto Ponce Self - patient is the insured [place] Of [place] [address] [address] [place] [id number] Alberto Ponce Self - patient is the insured Medical (General) History Surgical History Surgery Date(Month/Year) C section; 2018-10-03
[2024-12-08 19:52] VITALS: BP 135/76; PULSE 86; RESP 16; TEMP 36.3; O2SAT 98
--- NOTE | 2024-12-08 20:22 | ED.ANIMALBIT ---
HPI - Animal Bite General Chief Complaint: Animal Bite Stated Complaint: Dog Bite/Left Thumb Source: patient Mode of arrival: ambulatory Limitations: no limitations History of Present Illness HPI narrative: Patient presents for evaluation of a dog bite to left thumb. Incident occurred yesterday. She was attempting to break up two corgis and she sustained a bite in the process of doing so. Patient states pain is 1/10 in severity. She denies loss of range of motion. She is right-hand dominant. She is not diabetic. She does not smoke. She is up-to-date on tetanus. Dogs are up-to-date on vaccinations. She cleaned the area with hydrogen peroxide. She denies any chills, nausea, vomiting, purulence from the affected area. Related Data Home Medications ?Medication ?Instructions ?Recorded ?Confirmed ?Last Taken ?Type lorazepam 0.5 mg tablet 0.5 mg PO DAILY PRN Anxiety 08/04/22 12/08/24 Unknown History fluoxetine 20 mg capsule 20 mg PO DAILY 08/19/23 12/08/24 Unknown History hydroxychloroquine 200 mg tablet 200 mg PO BID 04/17/24 12/08/24 Unknown History Allergies Allergy/AdvReac Type Severity Reaction Status Date / Time No Known Allergies Allergy Verified 09/11/24 10:20 Review of Systems Review of Systems: CONSTITUTIONAL: Denies fever, chills, or sweats. EYES: Denies visual changes, redness, or discharge. ENT: Denies rhinorrhea, congestion, sore throat, or otalgia. CARDIOVASCULAR: Denies chest pain, palpitations, or edema. RESPIRATORY: Denies cough or dyspnea. GASTROINTESTINAL: Denies abdominal pain, nausea, vomiting, or diarrhea. GENITOURINARY: Denies dysuria or hematuria. SKIN: Reports dog bite to the left thumb MUSCULOSKELETAL: Denies back pain, joint pain, or myalgia. NEUROLOGIC: Denies headache, numbness, dizziness, or weakness. PSYCHIATRIC: Denies anxiety or depression. [facility] Past Medical History Medical History Left shoulder pain DJD of right shoulder Calcific tendonitis Vitamin D toxicity DJD of left shoulder Narcolepsy Nausea and vomiting Abnormality of heart beat Hearing loss Weight gain Bilateral shoulder pain Hypothyroid IFG (impaired fasting glucose) Vaccine counseling Proteinuria Calcific tendinitis of both shoulder regions Irritable bowel syndrome Hypertension Head ache Arthritis Anxiety Enlarged thyroid gland Leukoplakia Cutaneous lupus erythematosus Sjogren's disease Close exposure to COVID-19 virus General symptom Lung nodule < 6cm on CT (02/2020) Hypochondriasis Obesity (BMI 30.0-34.9) Seasonal allergies Heart palpitations Anxiety about health Essential hypertension Ex-smoker Irritable bowel syndrome with constipation Lupus Narcolepsy and cataplexy Surgical History Surgical History History of colposcopy H/O section Family History Family History Grandparent Carcinoma of colon, Onset Age: 55 Sibling Asthma Depression Mother Lung cancer Bone cancer Brain cancer Depression Cerebrovascular accident Thyroid disorder Father Heart disease Social History Social History Smoking packs per day: 0.5 Smoking cigarettes per day: 10.0 Years smoked: 22 Smoking pack-years: 11.00 Smoking status: Former smoker Tobacco type: cigarettes Second hand tobacco smoke exposure: No Smoking end date: 05/09/19 Alcohol intake: former Substance use: never Substance use type: does not use Lack of Transportation: No Lack of Food: Never True Current Housing: I Have Housing Concerned About Future Housing: No Difficulty Paying Gas/Electric Bills: YES Difficulty Paying for Meds: No Currently Unemployed: No Education: Associate Degree Difficulty w/ Childcare or Family Care: No Agree to blood products: Yes Exam Narrative: GENERAL: Well-appearing, well-nourished, and in no acute distress. HEAD: Normocephalic, atraumatic. EYES: PERRLA and EOMI. ENT: Nares clear, no rhinorrhea or epistaxis. Mucous membranes moist. Oropharynx without tonsillar hypertrophy exudate or other lesions. Bilateral TMs pearly rivera nonbulging NECK: Supple. No adenopathy or masses. No carotid bruits or JVD CHEST: Clear to auscultation. No respiratory distress. No wheezes rales or rhonchi HEART: Regular rate and rhythm. No murmur heard. Normal peripheral pulses. ABDOMEN: Soft, nontender, nondistended, normal active bowel sounds. EXTREMITIES: Normal range of motion. No edema. SKIN: There is 1 puncture wound noted to the palmar aspect of the distal phalanx of the left thumb and a another puncture wound noted to the dorsal aspect of the distal phalanx of the left thumb NEURO: No focal deficits. Alert and oriented x3. PSYCH: Normal mood and affect. Course Course Emergency Course: This is a 39-year-old female who presented for evaluation of a dog bite to left thumb. There is no loss of range of motion to suggest fracture. Advised on wound care. Will discharge with Augmentin. Follow-up with primary provider. Go to the ER for worsening symptoms. Patient in agreement with plan of care. Level of Care: Express Care Visit Vital Signs Vital signs: Vital Signs Temperature 36.3 C L 12/08/24 19:52 Pulse Rate 86 12/08/24 19:52 Respiratory Rate 16 12/08/24 19:52 Blood Pressure 135/76 12/08/24 19:52 Pulse Oximetry 98 12/08/24 19:52 Oxygen Delivery Room Air 12/08/24 19:52 Temperature 36.3 C L 12/08/24 19:52 Pulse Rate 86 12/08/24 19:52 Respiratory Rate 16 12/08/24 19:52 Blood Pressure 135/76 12/08/24 19:52 Pulse Oximetry 98 12/08/24 19:52 Oxygen Delivery Room Air 12/08/24 19:52 Discharge Plan Discharge Clinical Impression: Dog bite of left thumb Patient Disposition: Home Condition: Stable Instructions: Antibiotic Form, Animal Bite (ED) Patient Language: Lithuanian Prescriptions: New amoxicillin-pot clavulanate 875-125 mg tablet 1 tablet PO Q12H Qty: 20 0RF No Action hydroxychloroquine 200 mg tablet 200 mg PO BID lorazepam 0.5 mg tablet 0.5 mg PO DAILY PRN (Reason: Anxiety) fluoxetine 20 mg capsule 20 mg PO DAILY metoprolol tartrate 25 mg tablet 25 mg PO BID 90 Days Qty: 180 1RF amlodipine 5 mg tablet 5 mg PO BID Qty: 180 1RF Follow-up/Referrals: Alisha Lal APRN [Primary Care Provider] - Time of Disposition: 20:20
== END 2024-12-08 20:25 | disposition home or self-care (01) ==
PROVIDERS: Emergency Provider Nurse Practitioner; PCP Nurse Practitioner Family
DX: S61.032A Puncture wound without foreign body of left thumb without damage to nail, initial encounter (principal); W54.0XXA Bitten by dog, initial encounter; Z87.891 Personal history of nicotine dependence; I10 Essential (primary) hypertension; E03.9 Hypothyroidism, unspecified; M19.012 Primary osteoarthritis, left shoulder; M19.011 Primary osteoarthritis, right shoulder; R73.01 Impaired fasting glucose; M35.00 Sjogren syndrome, unspecified; E66.9 Obesity, unspecified; Z68.36 Body mass index [BMI] 36.0-36.9, adult
CPT/HCPCS: 99213; G0463